=== PATIENT | female | born 1950 | race Caucasian/White ===

== ENCOUNTER 2019-08-06 09:38 | Outpatient (CLI) | payer MEDICARE, OTHER, SELFPAY ==
--- NOTE | ~2019-08-06 | MM_ITS ---
EXAMINATION: MM screening audie BI w jeremias HISTORY: Screening mammogram TECHNIQUE: Craniocaudal and mediolateral oblique 3-D tomosynthesis images were obtained and synthetic 2-D images were generated. CAD analysis was submitted and interpreted. COMPARISON: 06/14/2018, 03/05/2017, 02/14/2016 bilateral digital screening mammogram examinations BREAST PARENCHYMAL COMPOSITION: There are scattered areas of fibroglandular density. FINDINGS: Scattered benign calcifications. There is no evidence of suspicious mass, calcification, or architectural distortion to suggest malignancy in either breast. There has been no suspicious interv al change. IMPRESSION: 1. No mammographic evidence of malignancy. 2. Recommend routine screening mammography in one year. BI-RADS Category 2: Benign finding(s). Reviewed, dictated and finalized at location A. H FINISHER
--- NOTE | ~2019-08-06 | DEXA_ITS ---
Bone Density Report Name: Delmy Mchugh Age: 69 Sex: Female Ethnicity: White Date of : 1950 Indication: osteopenia; Referring Provider: Miranda Shane Study: Bone densitometry was performed. Exam Date: August 06, 2019 Accession number: [id number] There is hypertrophic degenerative change of the lumbar spine, which results in higher than expected spine bone mineral density measurements. These spine BMD and T score and Z score measurements are not reflective of the patient's true general bone mineral density. Bone Density: Region BMD T-score Z-score Classification AP Spine (L1, L4) 1.215 1.6 3.8 Normal Femoral Neck (Left) 0.630 -2.0 -0.1 Osteopenia Total Hip (Left) 0.751 -1.6 0.0 Osteopenia Total Hip Bilateral Avg 0.759 -1.5 0.1 Osteopenia Femoral Neck (Right) 0.637 -1.9 -0.1 Osteopenia Total Hip (Right) 0.766 -1.4 0.1 Osteopenia World Health Organization criteria for BMD impression classify patients as: Normal (T-score at or above -1.0), Osteopenia (T-score between -1.0 and -2.5), or Osteoporosis (T-score at or below -2.5). 10-year Fracture Risk(1): Major Osteoporotic Fracture 12% Hip Fracture 3.7% Reported Risk Factors: [place] (), Neck BMD=0.630, BMI=28.4, smoking (1) FRAX(R) Version 3.08. Fracture probability calculated for an untreated patient. Fracture probability may be lower if the patient has received treatment. Previous Exams: Region Exam Age BMD T-score BMD Change BMD Change Date g/cm2 vs Baseline vs Previous AP Spine(L1, L4) 08/06/2019 69 1.215 1.6 0.174(16.7%)# 0.172(16.4%)# 02/14/2016 65 1.044 0.1 0.002(0.2%)# 0.002(0.2%)# 09/28/2010 60 1.042 0.0 Total Hip(Left) 08/06/2019 69 0.751 -1.6 0.063(9.2%)# 0.043(6.0%)# 02/14/2016 65 0.708 -1.9 0.021(3.0%)# 0.021(3.0%)# 09/28/2010 60 0.688 -2.1 Total Hip(Right) 08/06/2019 69 0.766 -1.4 -0.062(-7.5%)# -0.033(-4.1%)# 02/14/2016 65 0.799 -1.2 -0.030(-3.6%)# -0.030(-3.6%)# 09/28/2010 60 0.828 -0.9 *Denotes significance at 95% confidence level, LSC for AP Spine = 0.022 g/cm2, LSC for Total Hip = 0.027 g/cm2 Clinical Information Provided by Patient: Smokes Patient maximum height was 64 Menopause Age: 43 No regular weight bearing exercise Drinks caffeinated beverages Onset of menses at age 10 Number of children 2 Impression: The patient has low bone mass, based on the Left Femoral Neck T-score. The
== END 2019-08-06 09:39 | disposition home or self-care (01) ==
LOC: ANHIMG 09:43
PROVIDERS: PCP Family Medicine; Visit Provider Physician Assistant
DX: Z12.31 Encounter for screening mammogram for malignant neoplasm of breast (principal); Z78.0 Asymptomatic menopausal state; M85.89 Other specified disorders of bone density and structure, multiple sites
CPT/HCPCS: 77063; 77067; 77080

== ENCOUNTER 2020-04-12 01:39 | Outpatient (CLI) | payer MEDICARE, SELFPAY ==
[2020-04-12 20:39] LABS: SARS-CoV-2 RNA PCR Negative
== END 2020-04-12 01:40 | disposition home or self-care (01) ==
LOC: ANHCOVIDDT 01:40
PROVIDERS: PCP Family Medicine; Visit Provider Internal Medicine Gastroenterology
DX: Z01.818 Encounter for other preprocedural examination (principal); Z20.828 Contact with and (suspected) exposure to other viral communicable diseases
CPT/HCPCS: 87635; C9803; U0003

== ENCOUNTER 2020-04-15 00:17 | Day surgery (SDC) | payer MEDICARE, SELFPAY ==
[2020-04-09 14:03] VITALS: BMI 27.5
[2020-04-15 06:30] VITALS: BP 173/85; PULSE 94; RESP 16; TEMP 36.3; O2SAT 97; BMI 27.3
--- NOTE | 2020-04-15 06:36 | P.PNAN_ITS ---
Anes - Initial Pre Proc Eval Procedure: Operation Date: 04/15/20 08:00 Proposed Procedures p Screening Colonoscopy - Ulises Coyle MD Date/Time: 04/15/20 06:36 Surgeon: Ulises Coyle MD Pre Op Diagnosis: hx of colon polyps Patient Data Age: 69 Gender: F Height: 1.65 m Weight: 75 kg Allergies Allergy/AdvReac Type Severity Reaction Status Date / Time No Known Allergies Allergy Unknown Verified 04/15/20 06:56 Home Medications Medication Instructions Recorded Confirmed Type atorvastatin 20 mg tablet See Rx Instructions .ROUTE 01/12/20 04/09/20 Rx .COMPLEX #90 tablet Patient hx anesthesia problems: none Family hx anesthesia problems: none PMFSH Past Medical History Medical History (Updated 04/15/20 @ 06:37 by Marino Vallecillo MD) Mixed hyperlipidemia Nicotine dependence, cigarettes, uncomplicated Overweight Spinal stenosis of lumbar region at multiple levels Family History Family History Father Diabetes mellitus Family history of elevated blood lipids Family history of alcoholism Patient's father is , Onset Age: 59 Mother Family history of glaucoma Carcinoma of colon Family history of lung cancer Social History Social History Smoking packs per day: 0.75 Smoking cigarettes per day: 15.0 Years smoked: 50 Smoking pack-years: 37.50 Smoking status: Current every day smoker Tobacco type: cigarettes Alcohol intake: never Substance use type: does not use Living arrangements: alone Spiritual care concerns: No Anes - Eval Final PreProcedure Day of Procedure 04/15/20 06:36 Patient weight: overweight Heart: regular rate and rhythm Lungs: clear to auscultation and normal air movement Airway: Mallampati scale class II Neurological: alert and oriented Last oral intake: >/= 8 hours ASA classification: II Emergent: no Anesthetic plan: proceed Anesthesia type and monitoring: general GIVS Informed Consent: The patient's anesthetic plan and its attendant risks and benefits were discussed with the patient/family/POA. Questions were solicited and answers provided to the satisfaction of the patient/family/POA.
[2020-04-15] MEDS: LACTATED RINGERS 1,000 ML 150 ML IV CONT (07:02)
--- NOTE | 2020-04-15 07:53 | P.CONGI_ITS ---
Assessment and Plan Assessment and plan (1) History of colon polyps: Code(s): Z86.010 - Personal history of colonic polyps Status: Acute Assessment and Plan: Patient has a history of colon polyps removed from the colon 5 years ago. Patient presents today for follow-up screening colonoscopy. Further recommendations will be given after endoscopy. GI Consult Note Consult date/time: 04/15/20 07:53 HPI: Delmy Mchugh is a 69 year old female seen in evaluation at the request of Dr. Krystyna Morocho. patient has a history of colon polyps in the past. Most recently fiber 6 years ago. Her current weight appetite bowel movements are normal. She denies abdominal pain. She has had no bleeding. Her family history is noncontributory. Review of Systems Review of Systems: All systems reviewed & are unremarkable except as noted in HPI and below PMFSH Past Medical History Medical History (Updated 04/15/20 @ 07:54 by Ulises Coyle MD) Mixed hyperlipidemia Nicotine dependence, cigarettes, uncomplicated Overweight Spinal stenosis of lumbar region at multiple levels Family History Family History Father Diabetes mellitus Family history of elevated blood lipids Family history of alcoholism Patient's father is , Onset Age: 59 Mother Family history of glaucoma Carcinoma of colon Family history of lung cancer Social History Social History Smoking packs per day: 0.75 Smoking cigarettes per day: 15.0 Years smoked: 50 Smoking pack-years: 37.50 Smoking status: Current every day smoker Tobacco type: cigarettes Alcohol intake: never Substance use type: does not use Living arrangements: alone Spiritual care concerns: No Meds Home Medications and Allergies Home Medications Medication Instructions Recorded Confirmed Type atorvastatin 20 mg tablet See Rx Instructions .ROUTE 01/12/20 04/09/20 Rx .COMPLEX #90 tablet Allergies Allergy/AdvReac Type Severity Reaction Status Date / Time No Known Allergies Allergy Unknown Verified 04/15/20 06:56 Vital Signs Vital Signs - 24 hr 04/15/20 06:30 Temperature 97.3 F L Pulse Rate 94 Respiratory Rate 16 Blood Pressure 173/85 H Pulse Oximetry 97 Exam Narrative: Exam Narrative: Physical exam reveals patient to be alert. Vital signs stable. HEENT exam unremarkable. She is anicteric. Lungs are clear to auscultation and percussion. Heart is without murmur or extra sounds. Abdominal exam bowel sounds are present soft nontender with no hepatosplenomegaly. Digital external rectal exam normal.
[2020-04-15 08:20] VITALS: BP 135/72; PULSE 81; RESP 20; O2SAT 95
[2020-04-15 08:30] VITALS: BP 131/79; PULSE 69; RESP 20; O2SAT 95
[2020-04-15 08:40] VITALS: BP 133/79; PULSE 83; RESP 21; O2SAT 100
== END 2020-04-15 09:02 | disposition home or self-care (01) ==
PROVIDERS: PCP Family Medicine; Visit Provider Internal Medicine Gastroenterology
PROC: 0DJD8ZZ Inspection of Lower Intestinal Tract, Via Natural or Artificial Opening Endoscopic (ICD-10-PCS; CPT 45378; principal; 2020-04-15 08:00)
DX: Z12.11 Encounter for screening for malignant neoplasm of colon (principal); K63.5 Polyp of colon; K64.8 Other hemorrhoids; E78.2 Mixed hyperlipidemia; M47.816 Spondylosis without myelopathy or radiculopathy, lumbar region; F17.210 Nicotine dependence, cigarettes, uncomplicated
CPT/HCPCS: 45385; 88305; C9803; J2704; J7120; U0003

== ENCOUNTER → 2020-07-08 10:07 | Outpatient (CLI) | payer MEDICARE, SELFPAY ==
--- NOTE | ~2020-07-08 | CT_ITS ---
EXAMINATION:CT lung screening DATE: 07/08/2020 10:31 INDICATION: Personal history of nicotine dependence. Current smoker with 30 pack year history. TECHNIQUE: Computed tomography (CT) of the chest was performed without intravenous contrast. Automate d exposure control and iterative reconstruction technique were employed. The dose-length product (DLP ) was 109.83 mGy-cm. COMPARISON: Chest CT 04/28/2019 FINDINGS: There is mild scarring at the lung apices. There is mild atelectasis in right middle lobe a nd lingula. A calcified left lung nodule is consistent with old granulomatous disease. No pleural eff usion. The heart size is normal. There are coronary artery calcifications. No pericardial effusion. T here is severe thoracic spondylosis. IMPRESSION: 1. Lung-RADS category 2: Benign appearance or behavior. Continue annual screening with noncontrast lo w-dose chest CT in 12 months. Reviewed, dictated and finalized at location A. NO MANAGER IMPRESSION: 1. Lung-RADS category 2: Benign appearance or behavior. Continue annual screeni ng with noncontrast low-dose chest CT in 12 months.
== END ==
PROVIDERS: PCP Family Medicine; Visit Provider Family Medicine
DX: Z12.2 Encounter for screening for malignant neoplasm of respiratory organs (principal); Z87.891 Personal history of nicotine dependence
CPT/HCPCS: 71271

== ENCOUNTER 2020-09-28 09:25 | Outpatient (CLI) | payer MEDICARE, SELFPAY ==
--- NOTE | ~2020-09-28 | MM_ITS ---
EXAMINATION: MM screening audie BI w jeremias HISTORY: Screening mammogram TECHNIQUE: Craniocaudal and mediolateral oblique 3-D tomosynthesis images were obtained and synthetic 2-D images were generated. CAD analysis was submitted and interpreted. COMPARISON: 08/2019, 06/14/2018, 03/05/2017 bilateral digital screening mammogram examinations BREAST PARENCHYMAL COMPOSITION: There are scattered areas of fibroglandular density. FINDINGS: There is no evidence of suspicious mass, calcification, or architectural distortion to sugg est malignancy in either breast. There has been no suspicious interval change. IMPRESSION: 1. No mammographic evidence of malignancy. 2. Recommend routine screening mammography in one year. BI-RADS Category 1: Negative Reviewed, dictated and finalized at location A.
== END 2020-09-28 09:26 | disposition home or self-care (01) ==
LOC: ANHIMG 09:30
PROVIDERS: PCP Family Medicine; Visit Provider Family Medicine
DX: Z12.31 Encounter for screening mammogram for malignant neoplasm of breast (principal)
CPT/HCPCS: 77063; 77067

== ENCOUNTER 2020-10-21 16:46 | Emergency (ER) | payer MEDICARE, SELFPAY ==
--- NOTE | ~2020-10-21 | XR_ITS ---
EXAMINATION: XR chest 2V DATE: 10/21/2020 17:36 INDICATION: Fever TECHNIQUE: PA and lateral views of the chest are obtained. COMPARISON: 04/07/2019 FINDINGS: The lungs are free of acute opacities. There is scarring of the lung apices. There is no pl eural effusion or pneumothorax. The cardiomediastinal silhouette is normal. There is moderate thoraci c spondylosis. IMPRESSION: 1. No acute cardiopulmonary abnormality. Reviewed, dictated and finalized at location A.
--- NOTE | 2020-10-21 16:53 | ED.GENADULT ---
HPI - General Adult General Chief complaint: Nausea/Vomiting/Diarrhea Stated complaint: vomiting,diarrhea,fever Time Seen by Provider: 10/21/20 17:17 Source: patient and RN notes reviewed Mode of arrival: ambulatory Limitations: no limitations History of Present Illness HPI narrative: 70-year-old female presents with concern for fever. Reports 5 days ago her symptoms began with fever, chills, vomiting, diarrhea. She reports her last diarrhea stool and vomiting episode wore on Sunday. She reports on Sunday she began to feel slightly better. Reports today she began having chills again and had a fever of 102. She denies cough, shortness of breath, rhinorrhea, nasal congestion, abdominal pain, urine frequency or urgency. Reports she was treated for cellulitis and abscess at the end of September with antibiotics, reports the infected area has healed. Denies any new rashes, boils, red skin. MD complaint: Fever Related Data Allergies Allergy/AdvReac Type Severity Reaction Status Date / Time No Known Allergies Allergy Unknown Verified 10/21/20 17:43 Review of Systems Review of Systems: Narrative: CONSTITUTIONAL: Reports malaise, chills, fatigue, fever. EYES: Denies visual changes, redness, or discharge. ENT: Denies rhinorrhea, congestion, sinus pain, otalgia or sore throat. CARDIOVASCULAR: Denies chest pain, palpitations, or edema. RESPIRATORY: Denies cough or dyspnea. GASTROINTESTINAL: Denies abdominal pain. Reports history of nausea, vomiting, diarrhea 2 days ago GENITOURINARY: Denies dysuria or hematuria. SKIN: Denies rash or itching. MUSCULOSKELETAL: Denies myalgia.. Reports she had 2-day history of left lower flank pain when symptoms first started which has since resolved NEUROLOGIC: Denies headache. All systems reviewed & are unremarkable except as noted in HPI and below PMFSH Past Medical History Medical History Hepatitis C antibody test negative (03/06/17) Mixed hyperlipidemia Nicotine dependence, cigarettes, uncomplicated Overweight Spinal stenosis of lumbar region at multiple levels Family History Family History Father Diabetes mellitus Family history of elevated blood lipids Family history of alcoholism Patient's father is , Onset Age: 59 Mother Family history of glaucoma Carcinoma of colon Family history of lung cancer Social History Social History (Updated 09/29/20 @ 11:20 by Kenia Rodríguez [facility]) Years smoked: 50 Tobacco type: cigarettes Alcohol intake: never Substance use type: does not use Spiritual care concerns: No Comments At time of signature, agree with nursing past medical, surgical, social and family history. There is no relevant family history pertinent to the presenting complaint Exam Narrative: Exam Narrative: GENERAL: Well-appearing, well-nourished, and in no acute distress. HEAD: Normocephalic, atraumatic. EYES: PERRLA, conjunctivae clear ENT: Nares clear. Mucous membranes moist. TM pearly lugo with sharp light reflex bilaterally; no tragal tenderness. Oropharynx without erythema or lesions. Tonsils not enlarged and without exudate. NECK: Supple. No lymphadenopathy. No jugular venous distension, thyromegaly, or carotid bruits. Carotids were easily palpable bilaterally. CHEST: No respiratory distress. Rhonchi noted in the right lower lobe, right lower lobe diminished. Otherwise lung sounds clear to auscultation no bony deformities, no asymmetry. Speaks in full sentences. HEART: Regular rate and rhythm. No murmur heard. Normal peripheral pulses. ABDOMEN: Soft, nontender, nondistended, normal active bowel sounds, no palpable masses. EXTREMITIES: Normal range of motion. No edema. Normal strength and sensation. SKIN: Warm, dry, no rash. NEURO: Alert and oriented x3. PSYCH: Normal mood and affect Course Course Emergency Course: Patient
[2020-10-21 17:01] VITALS: BP 136/75; PULSE 99; RESP 20; TEMP 36.7; O2SAT 97
[2020-10-21 17:05] VITALS: BP 136/75; PULSE 99; RESP 20; TEMP 36.7; O2SAT 97
== END 2020-10-21 18:13 | disposition home or self-care (01) ==
PROVIDERS: Emergency Provider Nurse Practitioner; PCP Family Medicine
DX: R11.2 Nausea with vomiting, unspecified (principal); R10.9 Unspecified abdominal pain; R50.9 Fever, unspecified; Z20.822 Contact with and (suspected) exposure to COVID-19; E78.2 Mixed hyperlipidemia; F17.218 Nicotine dependence, cigarettes, with other nicotine-induced disorders; M48.061 Spinal stenosis, lumbar region without neurogenic claudication
CPT/HCPCS: 71046; 81003; 87077; 87086; 87088; 87186; 87426; 87804; 99213; C9803; G0463

== ENCOUNTER 2020-10-24 15:01 | Observation (INO) | payer MEDICARE, SELFPAY ==
[2020-10-24] VITALS (13 sets, daily range): BP systolic 126–181; BP diastolic 50–96; PULSE 81–103; RESP 14–20; TEMP 36.2–36.6; O2SAT 92–100; BMI 27.3
--- NOTE | ~2020-10-24 | CT_ITS ---
EXAMINATION: CT abdomen pelvis w con INDICATION: Pelvic pain and fever TECHNIQUE: Computed tomographic images of the abdomen and pelvis were obtained after the administrati on of 100 cc of Omnipaque 350 intravenous contrast. The dose-length product (DLP) was 509.50 mGy-cm. Automated exposure control and iterative reconstruction technique were employed. COMPARISON: 07/19/2013 FINDINGS: Minimal dependent atelectasis is present in the lung bases. The heart size is normal. Cysts of the liver measure up to 4 mm in the right hepatic lobe. There is a 5 mm cyst of the spleen. Calci fication in the head of the pancreas is consistent with chronic pancreatitis. The gallbladder and adr enal glands are unremarkable. There is a 10 mm stone at the left ureteropelvic junction which causes moderate hydronephrosis. There is urothelial enhancement of the proximal ureter. There is decreased p erfusion of the left kidney relative to the right. There is a 6 mm stone in the left kidney lower cathi e. There is an 11 mm cyst in the right kidney. There is calcified atherosclerosis of the aorta and ma ny of the other arteries. No pathologically enlarged abdominal or pelvic lymph nodes are identified. There is no free intraperitoneal gas or evidence of bowel obstruction. A tiny focus of gas in the uri nary bladder may be due to catheterization, clinically correlate. There is severe lumbar spondylosis. IMPRESSION: 1. 10 mm stone at the left ureteropelvic junction causing moderate hydronephrosis and left pyelonephr itis. Reviewed, dictated and finalized at location A. IMPRESSION: 1. 10 mm stone at the left ureteropelvic junction causing moderate hydronephros is and left pyelonephritis.
--- NOTE | ~2020-10-24 | XR_ITS ---
EXAMINATION: XR abdomen/kub 1V INDICATION: Left nephrolithiasis and left ureteral stone TECHNIQUE: Supine views of the abdomen were obtained on 2 radiographs. COMPARISON: CT from yesterday FINDINGS: A left internal ureteral stent has been inserted. There is a 5 mm stone of the left kidney lower pole. The 10 mm stone described at the left ureteropelvic junction on the comparison CT is not definitely seen. The bowel gas pattern is normal. Severe lumbar spondylosis is noted. IMPRESSION: 1. Left internal ureteral stent in expected position. 2. Left nephrolithiasis. Reviewed, dictated and finalized at location A.
--- NOTE | ~2020-10-24 | XR_ITS ---
EXAMINATION: XR retrograde pyelo w/stent LT INDICATION: Left hilar nephritis and proximal ureteral stone TECHNIQUE: 61 intraoperative fluoroscopic images are submitted for review. Total fluoroscopic time wa s 42.4 seconds. COMPARISON: CT from today FINDINGS: Fluoroscopic images demonstrate a stone at the ureteropelvic junction and moderate left hyd ronephrosis. A left internal ureteral stent is placed in expected position. IMPRESSION: 1. Please refer to procedure note for full details. Reviewed, dictated and finalized at location A.
--- NOTE | ~2020-10-24 | XR_ITS ---
EXAMINATION: XR abdomen/kub 1V DATE: 10/26/2020 08:48 INDICATION: Kidney stone. TECHNIQUE: A supine view of the abdomen on 2 radiographs was obtained. COMPARISON: Abdomen radiographs 10/25/2020, CT abdomen and pelvis 10/24/2020 FINDINGS: There are no dilated loops of bowel. There are phleboliths in the pelvis. There is a left i nternal ureteral stent in expected position. There is a 5 mm stone in left kidney lower pole. IMPRESSION: 1. 5 mm stone in left kidney lower pole. 2. Left internal ureteral stent in expected position. Reviewed, dictated and finalized at location B.
[2020-10-24 15:37] LABS: Basophils Absolute Auto 0.1 K/mm3 (0.0-0.1); Basophils Percent Auto 0.6 % (0.2-1.2); Eosinophils Absolute Auto 0.2 K/mm3 (0-0.3); Hematocrit 38.2 % (37.0-47.0); Hemoglobin 12.9 g/dL (12.0-15.0); Immature Granulocyte Absolute 0.09 K/mm3 (0.00-0.031); Immature Granulocyte Percent A 0.8 % (0-0.5); Lymphocytes Absolute Auto 1.76 K/mm3 (0.9-3.2); Lymphocytes Percent Auto 16.6 % (18.3-44.2); Mean Corpuscular HGB Conc 33.8 g/dl (32-36); Mean Corpuscular Hemoglobin 30.5 pg (26-34); Mean Corpuscular Volume 90.3 fl (80-100); Mean Platelet Volume 9.5 fl (7.4-10.4); Monocytes Absolute Auto 1.6 K/mm3 (0.1-0.6); Monocytes Percent Auto 15.4 % (2.6-8.5); Neutrophils Absolute Auto 6.9 K/mm3 (1.3-6.7); Neutrophils Percent Auto 64.6 % (45.5-73.1); Platelet Count Result 302 k/mm3 (150-375); Red Blood Count 4.23 M/mm3 (4.2-5.4); Red Cell Distribution Width 14.8 % (11.5-14.5); White Blood Count 10.6 K/mm3 (4.5-10.0)
[2020-10-24 15:47] LABS: Alanine Aminotransferase 43 U/L (4-35); Albumin Level 3.9 g/dL (3.5-5.1); Alkaline Phosphatase 125 U/L (38-126); Anion Gap 9 mmol/L (8-16); Aspartate Amino Transferase 57 U/L (14-36); Bilirubin,Total 0.5 mg/dL (0.2-1.3); Blood Urea Nitrogen 23 mg/dL (7-17); Calcium 9.3 mg/dL (8.4-10.2); Carbon Dioxide 20 mmol/L (22-30); Chloride 102 mmol/L (98-107); Estimated CRCL calculation 40 ml/min; Estimated Glomerular Filt Rate 49; Glucose 108 mg/dL (65-105); Lipase 46 U/L (23-300); Potassium 3.5 mmol/L (3.4-5.0); Sodium 131 mmol/L (137-145)
[2020-10-24 16:11] LABS: Add Urine Microscopic? YES; Appearance Urine Cloudy (Clear); Bacteria Urine Trace /hpf; Bilirubin Urine Negative (Negative); Blood Urine 3+ (Negative); Color Urine Yellow (Yellow); Glucose Urine UA Negative (Negative); Ketones Urine Negative (Negative); Leukocyte Esterase Ur 3+ LEU/UL (Negative); Nitrate Urine Negative (Negative); Protein Urine 1+ mg/dL (Negative); RBC Urine 21-50 /hpf (0-2); Squamous Epithelial Cell Urine Many /hpf (Few); Urobilinogen Urine Negative mg/dL (<2.0); WBC Urine 21-30 /hpf
--- NOTE | 2020-10-24 16:32 | ED.GENADULT ---
HPI - General Adult General Chief complaint: Nausea/Vomiting/Diarrhea Stated complaint: nausea/vomiting/fever/chills Time Seen by Provider: 10/24/20 16:01 Source: patient, family and RN notes reviewed Mode of arrival: ambulatory Limitations: no limitations History of Present Illness HPI narrative: Patient is a 70-year-old female who presents with 1 week duration of abdominal pain started with nausea and vomiting and diarrhea patient then continued to have chills fevers nausea was seen at an urgent care on Sunday or started on ciprofloxacin continue to have dry heaves now having right lower adnexal pain. Patient notes for the last 4 days she has not had a bowel movement she was also tested for flu and Covid which were negative. Patient presents per request of primary care for further evaluation. Patient denies similar occurrence in the past Related Data Allergies Allergy/AdvReac Type Severity Reaction Status Date / Time No Known Allergies Allergy Unknown Verified 10/21/20 17:43 Review of Systems Review of Systems: All systems reviewed & are unremarkable except as noted in HPI and below PMFSH Past Medical History Medical History Hepatitis C antibody test negative (03/06/17) Mixed hyperlipidemia Nicotine dependence, cigarettes, uncomplicated Overweight Spinal stenosis of lumbar region at multiple levels Family History Family History Father Diabetes mellitus Family history of elevated blood lipids Family history of alcoholism Patient's father is , Onset Age: 59 Mother Family history of glaucoma Carcinoma of colon Family history of lung cancer Social History Social History Years smoked: 50 Tobacco type: cigarettes Alcohol intake: never Substance use type: does not use Gender identity (if verbalized by the patient): Female Spiritual care concerns: No Exam Narrative: Exam Narrative: GENERAL: Well-appearing, well-nourished, and in no acute distress. HEAD: Normocephalic, atraumatic. EYES: PERRLA and EOMI. ENT: Nares clear, no rhinorrhea or epistaxis. Mucous membranes moist. CHEST: Clear to auscultation. No respiratory distress. No wheezes rales or rhonchi HEART: Regular rate and rhythm. No murmur heard. Normal peripheral pulses. ABDOMEN: Soft, right lower abdominal tenderness to palpation nondistended EXTREMITIES: Normal range of motion. No edema. SKIN: Warm, dry, no rash. NEURO: No focal deficits. Alert and oriented x3. PSYCH: Normal mood and affect. Course Course Emergency Course: Patient found to have kidney stone with urinary tract infection discussion was made with urology with plan to take the patient to the operating room tonight for stent placement. Patient at this time is aware of these findings was given fluids and IV antibiotics nontoxic-appearing Consultations Consultation #1: Discussed case with urology Dr. Velasquez who will take the patient to the operating room Date: 10/24/20 Time: 17:48 Vital Signs Vital signs: Vital Signs Temperature 97.9 F 10/24/20 15:21 Pulse Rate 103 H 10/24/20 15:21 Respiratory Rate 20 10/24/20 15:21 Blood Pressure 145/79 H 10/24/20 15:21 Pulse Oximetry 97 10/24/20 15:21 Temperature 97.9 F 10/24/20 15:21 Pulse Rate 103 H 10/24/20 15:21 Respiratory Rate 20 10/24/20 15:21 Blood Pressure 145/79 H 10/24/20 15:21 Pulse Oximetry 97 10/24/20 15:21 Medical Decision Making [facility] Narrative Medical decision making narrative: Patient with kidney stone with urinary tract infection will be taken to the operating room for further evaluation patient is afebrile nontoxic-appearing at this time has been hydrated and given IV antibiotics patient agreeing with this plan Vital Signs Vital Signs: Vital Signs Temperature 97.9 F 10/24/20 15:21 Puls
[2020-10-24] MEDS: SODIUM CHLORIDE 0.9% IV 1,000 ML 999 ML IV CONT (16:47)
[2020-10-24] MEDS: ONDANSETRON INJ 4 MG/2 ML VIAL IV PUSH ×2 (16:47→20:18)
[2020-10-24] MEDS: FAMOTIDINE 20 MG/2 ML VIAL IV PUSH (16:47)
[2020-10-24 17:00] LABS: Lactic Acid Reflex 1.2 mmol/L (0.7-2.1)
--- NOTE | 2020-10-24 18:16 | WPDANESEPP ---
Anes - Eval Pre Procedure Procedure: left cysto with stent placement Date/Time: 10/24/20 18:16 Surgeon: Ron Preop Diagnosis: Left stone Pre Op Diagnosis: nausea/vomiting/fever/chills Patient Data Age: 70 Gender: F Height: 5 ft 4 in Weight: 74 kg Last Vital Signs Temp 97.9 F 10/24/20 15:21 Pulse 103 H 10/24/20 15:21 Resp 20 10/24/20 15:21 BP 145/79 H 10/24/20 15:21 Pulse Ox 97 10/24/20 15:21 Allergies Allergy/AdvReac Type Severity Reaction Status Date / Time No Known Allergies Allergy Unknown Verified 10/21/20 17:43 Home Medications Medication Instructions Recorded Confirmed Type atorvastatin 20 mg tablet See Rx Instructions .ROUTE 07/06/20 09/29/20 Rx .COMPLEX #90 tablet ciprofloxacin HCl 500 mg PO Q12H 7 Days #14 tablet 10/21/20 Rx Laboratory Tests 10/24/20 10/24/20 10/24/20 15:31 15:31 16:00 WBC 10.6 K/mm3 H K/mm3 (4.5-10.0) RBC 4.23 M/mm3 M/mm3 (4.2-5.4) Hgb 12.9 g/dL g/dL (12.0-15.0) Hct 38.2 % % (37.0-47.0) MCV 90.3 fl fl (80-100) MCH 30.5 pg pg (26-34) MCHC 33.8 g/dl g/dl (32-36) RDW 14.8 % H % (11.5-14.5) Plt Count 302 k/mm3 k/mm3 (150-375) MPV 9.5 fl fl (7.4-10.4) Immature Gran % (Auto) 0.8 % H % (0-0.5) Neut % (Auto) 64.6 % % (45.5-73.1) Lymph % (Auto) 16.6 % L % (18.3-44.2) [place] % (Auto) 15.4 % H % (2.6-8.5) Eos % (Auto) 2.0 % % (0-4.4) Baso % (Auto) 0.6 % % (0.2-1.2) Lymph # (Auto) 1.76 K/mm3 K/mm3 (0.9-3.2) [place] # (Auto) 1.6 K/mm3 H K/mm3 (0.1-0.6) Eos # (Auto) 0.2 K/mm3 K/mm3 (0-0.3) Baso # (Auto) 0.1 K/mm3 K/mm3 (0.0-0.1) Abs Immat Gran (auto) 0.09 K/mm3 H K/mm3 (0.00-0.031) Absolute Neuts (auto) 6.9 K/mm3 H K/mm3 (1.3-6.7) Absolute Nucleated RBC 0.0 K/mm3 K/mm3 (0.0-0.012) Nucleated RBC % 0.0 % % (0.0-0.2) Sodium 131 mmol/L L mmol/L (137-145) Potassium 3.5 mmol/L mmol/L (3.4-5.0) Chloride 102 mmol/L mmol/L (98-107) Carbon Dioxide 20 mmol/L L mmol/L (22-30) Anion Gap 9 mmol/L mmol/L (8-16) BUN 23 mg/dL H mg/dL (7-17) Creatinine 1.10 mg/dL H mg/dL (0.7-1.0) Estim Creat Clear Calc 40 ml/min ml/min Estimated GFR 49 L (59 - ) Glucose 108 mg/dL H mg/dL (65-105) Lactic Acid Calcium 9.3 mg/dL mg/dL (8.4-10.2) Total Bilirubin 0.5 mg/dL mg/dL (0.2-1.3) AST 57 U/L H U/L (14-36) ALT 43 U/L H U/L (4-35) Alkaline Phosphatase 125 U/L U/L (38-126) Total Protein 8.0 g/dL g/dL (6.3-8.2) Albumin 3.9 g/dL g/dL (3.5-5.1) Lipase 46 U/L U/L (23-300) Urine Color Yellow (Yellow) Urine Appearance Cloudy H (Clear) Urine pH 6.0 (5.0-9.0) Ur Specific Bronson 1.010 (1.001-1.035) Urine Protein 1+ mg/dL H mg/dL (Negative) Urine Glucose (UA) Negative mg/dL mg/dL (Negative) Urine Ketones Negative mg/dL mg/dL (Negative) Ur Blood (Man) 3+ H (Negative) Urine Nitrate Negative (Negative) Urine Bilirubin Negative (Negative) Urine Urobilinogen Negative mg/dL mg/dL (<2.0) Leukocyte Esterase Rfl 3+ YAMILE/UL H YAMILE/UL (Negative) Urine RBC 21-50 /hpf H /hpf (0-2) Urine WBC 21-30 /hpf H /hpf Ur Squamous Epith Cells Many /hpf H /hpf (Few) Urine Bacteria Trace /hpf /hpf 10/24/20 16:44 WBC RBC Hgb Hct MCV MCH MCHC RDW Plt Count MPV Immature Gran % (Auto) Neut % (Auto) Lymph % (Auto) [place] % (Auto) Eos % (Auto) B
--- NOTE | 2020-10-24 18:44 | WPDURCON ---
Assessment and Plan Assessment and plan (1) Urinary tract infection: Code(s): N39.0 - Urinary tract infection, site not specified Status: Acute Assessment and Plan: She will be admitted to the medical service after procedure for management of underlying infection, await cultures, continue broad specturm IV abx (2) Kidney stone: Code(s): N20.0 - Calculus of kidney Status: Acute Assessment and Plan: plan on cysto, left RPG, left stent placement for suspected infected obstructing stone. daughter ( RN ) and sister present risks, benefits, alternatives, nature of procedure and potential complications reviewed. Pt understands we are not treating her stone today and she will need stone management in the future after infection has been treated. Pt understands stent is temporary and needs removal otherwise she risks permanent kidney injury and or loss. We discussed risks including but not limited to bleeding, infection trauma to surrounding structures, ureter, bladder, kidney, the side effects of stent ( ie irritative voiding symptoms pain similar to stone colic pain), failure to placed the stent and need for nephrostomy tube placement by IR, ureteral injury, in addition to anesthetic and positioning complications of heart attack, stroke, blood clots, PE, , disability and other unforeseen complications were reviewed. Pt and family verbalized understanding and are agreeable to proceed, all ? answered in laymans terms Urology Consult Note HPI Date Seen: 10/24/20 Primary Care Provider: Krystyna Morocho DO Consult Narrative Narrative: Delmy Mchugh is a 70 year old female with pmhx of hypercholesterolemia, came to ER today with 4 day hx of flank pain, abdominal pain, nausea and dry heaves. Pain is located in mid abdomen and radiates to the left flank. She has had fevers and chills at home of up to 102F. No prior hx of stone disease, no family hx of stone disease. She denies gross hematuria, + dysuria. She was seen at outside [facility], was diagnosed with UTI and placed on cipro. CT in ER shows a 10mm left UPJ stone. Review of Systems Review of Systems: All systems reviewed & are unremarkable except as noted in HPI and below Constitutional: Constitutional: Reports body ache(s), Reports chills and Reports fever(s) Eyes: Eyes: Denies change in vision and Denies dry eyes ENT: Reports Normal hearing present and Denies hearing loss Cardiovascular: Cardiovascular: Denies chest pain and Denies dyspnea Respiratory: Respiratory: Denies cough and Denies dyspnea on exertion Gastrointestinal: Gastrointestinal: Reports as per HPI Genitourinary: Genitourinary: Reports as per HPI Musculoskeletal: Musculoskeletal: Reports myalgias Integumentary/Breasts: Skin/Breast: Reports as per HPI Neurologic: Reports system reviewed and no additional complaints, except as documented Psychiatric: Psychiatric: Reports no additional psychiatric complaints Endocrine: Endocrine: Reports no additional endocrine complaints Hematologic/Lymphatic: Hematologic/Lymphatic: Reports no additional hematologic/lymphatic complaints Allergic/Immunologic: Allergic/Immunologic: Reports no additional allergic/immunologic complaints [facility] Past Medical History Medical History Hepatitis C antibody test negative (03/06/17) Mixed hyperlipidemia Nicotine dependence, cigarettes, uncomplicated Overweight Spinal stenosis of lumbar region at multiple levels Family History Family History Father Diabetes mellitus Family history of elevated blood lipids Family history of alcoholism Patient's father is , Onset Age: 59 Mother Family history of glaucoma Carcinoma of colon Family history of lung cancer Social History Social History Years smoked: 50
--- NOTE | 2020-10-24 18:58 | WPDHPUPDATE1 ---
History and Physical Update Update Date/Time: 10/24/20 18:58 History and Physical has been reviewed, including an updated exam of the patient. There are NO changes in the patient's condition. Risks, benefits, and alternatives have been discussed and questions answered. Patient agrees to proceed with procedure.
--- NOTE | 2020-10-24 19:06 | WPDANESEFPP ---
Anes - Eval Final PreProcedure Day of Procedure 10/24/20 19:06 Patient weight: overweight Heart: regular rate and rhythm Lungs: clear to auscultation and normal air movement Airway: Mallampati scale class II Neurological: alert and oriented Last oral intake: >/= 8 hours ASA classification: II Emergent: yes Anesthetic plan: proceed Anesthesia type and monitoring: general LMA and ETT Informed Consent: The patient's anesthetic plan and its attendant risks and benefits were discussed with the patient/family/POA. Questions were solicited and answers provided to the satisfaction of the patient/family/POA.
--- NOTE | 2020-10-24 19:11 | PC.NURSE ---
To OR via stretcher.
[2020-10-24] MEDS: LIDOCAINE HCL 2% GEL UROJET 10 ML PKG MUCOUS MEM (19:59)
--- NOTE | 2020-10-24 20:05 | P.OP_ITS ---
Procedure Note - Detailed Date of procedure: 10/24/20 Pre-op diagnosis: stent placement r/o stone left ureter stone Post-op diagnosis: same Procedure performed: cystoscopy, left retrograde pyelogram, left ureter stent placement Description of procedure: Patient was brought back to the OR, received a general anethsia via LMA. She was prepped and draped in standard fashion with Betadine to the genitalia, in the dorsal lithotomy position. Care was taken to not hyperflex or hyperextend any extremity, all bony prominences thoroughly padded. SCD boots on and functional for DVT ppx. Pt received IV antibiotics in ER. After appropriate - and radiological films were displayed a 20 Fr Cystoscope was inserted into the urinary bladder. the bladder mucosa was normal, free of tumor, lesion, mass or stone. She had single orthotopic ureteral orifices. [employer] fluoroscopy showed left ureter stone in left proximal ureter. I placed a Bentson wire into the ureter. An open ended catheter was placed over the wire up to the level of the stone, Retrograde revealed mild to moderate hydronephrosis. The Bentson wire was placed into the upper pole. A 6 Fr variable length stent was placed, good curl was seen fluoroscopically in the kidney and both fluoroscopically and endoscopically in the urinary bladder, The urine was cloudy from the stent. I elected to leave a 16 Fr stevens for maximal urinary drainage. All instruments and wires removed. Blood loss was 0. Patient was awoken and transferred to PACU in stable condition, no immediate complications. I discussed procedure and postoperative plans with daughter over the phone. Implants: left 6 fr variable lenght stent Anesthesia: GLMA Surgeon: Gigi Velasquez MD Drains: Yes Packing: No Pathology: none sent Complications: No immediate complications Condition: stable Disposition: PACU
[2020-10-24] MEDS: LACTATED RINGERS 1,000 ML 30 ML IV CONT ×2 (20:08→20:45)
--- NOTE | 2020-10-24 22:41 | ADMGEN ---
This patient, Delmy Mchugh, was admitted to Medical Room 250-01. Patient/family oriented to hospital policies and general routines including ID bracelet, bed and alarms, visiting hours, pain management, procedures, bathroom and other care routines, personal items, smoking policy, room service/diet, and visiting hours. Information on how to activate the Rapid Response Team has been discussed. Patient/Family are encouraged to report perceived risks to care and to ask questions if they do not understand what they are told or what they should do.
[2020-10-25] MEDS: KCL 20 MEQ/D5/0.45% SOD CHL 1,000 ML 80 ML IV CONT ×2 (00:02→12:22)
[2020-10-25] MEDS: HYDROcodone/acetaminophen (*CRX) 5-325 MG TABLET 1 TAB PO (02:41)
[2020-10-25 05:00] VITALS: BP 134/66; PULSE 80; RESP 16; TEMP 36.2; O2SAT 96
[2020-10-25] MEDS: ATORVASTATIN 20 MG TABLET PO (08:25)
[2020-10-25] MEDS: LORATADINE 10 MG TABLET PO (08:25)
[2020-10-25 10:00] VITALS: BP 173/81; PULSE 74; RESP 16; TEMP 36.7; O2SAT 96
--- NOTE | 2020-10-25 10:49 | WPDANESPN ---
Anes - Prog Note Post-Op Date/Time: 10/25/20 10:49 Cardiovascular status: normal Respiratory status: normal Airway patency: baseline Mental status: baseline Post-Op hydration status: normal Vital Signs: Last Vital Signs Temp 36.7 C 10/25/20 10:00 Pulse 74 10/25/20 10:00 Resp 16 10/25/20 10:00 BP 173/81 H 10/25/20 10:00 Pulse Ox 96 10/25/20 10:00 Pain Score (VAS): 06/13 I/O: Intake & Output 10/24/20 10/25/20 10/25/20 23:59 07:59 15:59 Intake Total 2400 600 240 Output Total 1120 1550 Balance 1280 -950 240 Laboratory Tests 10/24/20 15:31 10/24/20 15:31 10/24/20 10/24/20 10/24/20 15:31 15:31 16:00 WBC 10.6 H RBC 4.23 Hgb 12.9 Hct 38.2 MCV 90.3 MCH 30.5 MCHC 33.8 RDW 14.8 H Plt Count 302 MPV 9.5 Immature Gran % (Auto) 0.8 H Neut % (Auto) 64.6 Lymph % (Auto) 16.6 L Casey % (Auto) 15.4 H Eos % (Auto) 2.0 Baso % (Auto) 0.6 Lymph # (Auto) 1.76 Casey # (Auto) 1.6 H Eos # (Auto) 0.2 Baso # (Auto) 0.1 Abs Immat Gran (auto) 0.09 H Absolute Neuts (auto) 6.9 H Absolute Nucleated RBC 0.0 Nucleated RBC % 0.0 Sodium 131 L Potassium 3.5 Chloride 102 Carbon Dioxide 20 L Anion Gap 9 BUN 23 H Creatinine 1.10 H Estim Creat Clear Calc 40 Estimated GFR 49 L Glucose 108 H Lactic Acid Calcium 9.3 Total Bilirubin 0.5 AST 57 H ALT 43 H Alkaline Phosphatase 125 Total Protein 8.0 Albumin 3.9 Lipase 46 Urine Color Yellow Urine Appearance Cloudy H Urine pH 6.0 Ur Specific [place] 1.010 Urine Protein 1+ H Urine Glucose (UA) Negative Urine Ketones Negative Ur Blood (Man) 3+ H Urine Nitrate Negative Urine Bilirubin Negative Urine Urobilinogen Negative Leukocyte Esterase Rfl 3+ H Urine RBC 21-50 H Urine WBC 21-30 H Ur Squamous Epith Cells Many H Urine Bacteria Trace 10/24/20 16:44 WBC RBC Hgb Hct MCV MCH MCHC RDW Plt Count MPV Immature Gran % (Auto) Neut % (Auto) Lymph % (Auto) Casey % (Auto) Eos % (Auto) Baso % (Auto) Lymph # (Auto) Casey # (Auto) Eos # (Auto) Baso # (Auto) Abs Immat Gran (auto) Absolute Neuts (auto) Absolute Nucleated RBC Nucleated RBC % Sodium Potassium Chloride Carbon Dioxide Anion Gap BUN Creatinine Estim Creat Clear Calc Estimated GFR Glucose Lactic Acid 1.2 Calcium Total Bilirubin AST ALT Alkaline Phosphatase Total Protein Albumin Lipase Urine Color Urine Appearance Urine pH Ur Specific [place] Urine Protein Urine Glucose (UA) Urine Ketones Ur Blood (Man) Urine Nitrate Urine Bilirubin Urine Urobilinogen Leukocyte Esterase Rfl Urine RBC Urine WBC Ur Squamous Epith Cells Urine Bacteria Post-procedural complaints: none Patient Feedback: Patient satisfied with anesthetic care.
--- NOTE | 2020-10-25 13:06 | WPDUROPN2 ---
Progress Note: A&P Assessment and Plan (1) Kidney stone: Code(s): N20.0 - Calculus of kidney Status: Acute Assessment and Plan: UPJ stone is not visible on KUB, therefore we will evaluate for a ureteroscopy in the next few weeks once infection has resolved. Will discuss with Dr. Leon. NO further surgical needs at this time. Ok to remove stevens and perform a voiding trial. (2) Urinary tract infection: Code(s): N39.0 - Urinary tract infection, site not specified Status: Acute Assessment and Plan: Continue IV antibiotics, tailor to culture results. Will plan to repeat urine culture in the office prior to ureteroscopy. Subjective Subjective Date/Time Seen: 10/25/20 13:06 POD #1 Cystoscopy, left stent placement, left retrograde pyelogram for the 10mm left UPJ stone seen on CT. Urine and blood cultures are still pending. KUB shows only a 5mm lower pole left kidney stone but doesn't identify the 10mm left UPJ stone. Patient's pain is improved, but still notable with activity. Review of Systems Cardiovascular: Cardiovascular: Denies chest pain Respiratory: Respiratory: Reports no additional respiratory complaints Gastrointestinal: Gastrointestinal: Reports abdominal pain, Denies nausea and Denies vomiting Genitourinary: Genitourinary: Denies hematuria, Denies dysuria, Reports flank pain, Denies urinary hesitancy and Denies urinary urgency Exam Resp: Effort & Inspection: normal respiratory effort Cardio: Rate: regular rate GI: GI Palp: Yes Soft to palpation and No Tenderness to palpation present (GI) : General: Yes CVA tenderness on the left Urinary Catheter: Urinary Catheter: patent and draining and urine clear Extrem: General: no edema Objective Data Vital Signs Vital Signs: Vital Signs - 24 hr 10/24/20 15:21 10/24/20 18:51 10/24/20 20:08 Temperature 97.9 F 97.1 F L Pulse Rate 103 H 94 84 Respiratory Rate 20 20 14 Blood Pressure 145/79 H 165/80 H 146/71 H Pulse Oximetry 97 97 100 10/24/20 20:25 10/24/20 20:40 10/24/20 20:55 Temperature Pulse Rate 81 88 84 Respiratory Rate 16 15 16 Blood Pressure 165/77 H 156/81 H 181/84 H Pulse Oximetry 100 99 97 10/24/20 21:10 10/24/20 21:25 10/24/20 21:38 Temperature Pulse Rate 85 88 82 Respiratory Rate 16 18 14 Blood Pressure 171/71 H 143/96 H 161/79 H Pulse Oximetry 97 96 96 10/24/20 22:00 10/24/20 22:15 10/24/20 22:45 Temperature 97.3 F L 97.2 F L 97.6 F Pulse Rate 83 83 90 Respiratory Rate 16 16 16 Blood Pressure 164/87 H 173/72 H 148/76 H Pulse Oximetry 93 93 92 10/24/20 23:45 10/25/20 05:00 10/25/20 10:00 Temperature 97.2 F L 97.2 F L 98.1 F Pulse Rate 85 80 74 Respiratory Rate 16 16 16 Blood Pressure 126/50 L 134/66 173/81 H Pulse Oximetry 96 96 96 Intake/Output Intake/Output: Intake & Output 10/22/20 10/23/20 10/24/20 10/25/20 23:59 23:59 23:59 23:59 Intake Total 2400 1840 Output Total 1120 1550 Balance 1280 290 Meds/Results Medications: Active Medications Generic Name Dose Route Start Last Admin Trade Name Freq PRN Reason Stop Dose Admin Hydrocodone Bitart/Acetaminophen 1 tab 10/24/20 22:44 10/25/20 02:41 Hydrocodone/Acetaminophen (*Crx) 5-325 Mg Tablet PO 1 tab Q4H PRN Administration Pain Rated 4-6 Atorvastatin Calcium 20 mg 10/25/20 09:00 10/25/20 08:25 Atorvastatin 20 Mg Tablet PO 20 mg DAILY FREEMAN Administration Potassium Chloride/Dextrose/Sod Cl 1,000 mls @ 80 mls/hr 10/24/20 22:45 10/25/20 12:22 Kcl 20 Meq/D5/0.45% Sod Chl IV CONT 80 mls/hr .[id number] FREEMAN Administration Ceftriaxone Sodium/Dextrose 1 gm in 50 mls @ 100 mls/hr 10/25/20 17:00 Rocephin 1 Gm/D5w 50 Ml IVPB Q24H FREEMAN Loratadine 10 mg 10/25/20 09:00 10/25/20 08:25 Loratadine 10 Mg Tablet PO 10 mg QAM FREEMAN Administration Oxybutynin Chloride 5 mg 10/24/20 22:50 Oxybutynin Chloride 5 Mg Tablet PO TID PRN stent pain Ra
[2020-10-25 14:00] VITALS: BP 179/70; PULSE 81; RESP 18; TEMP 36.6; O2SAT 95
[2020-10-25] MEDS: BISACODYL 10 MG SUPPOSITORY RECTAL (16:22)
--- NOTE | 2020-10-25 17:35 | PM.IMHP ---
H&P: HPI History of Present Illness Date/Time: Pt admitted with high fevers and nausea and vomiting. Pt went to urgent care had imaging. but they could not do lab on her. Pt had stent placed yesterday for 10 mm stone at the left ureteropelvic junction causing moderate hydronephrosis and left pyelonephritis. Pt has not been in hospital recently. Pt has not opened her bowels for 6 days. Pt having low grade fever today. Seen by urology, Had Kub today after stent placement. Chief Complaint: Fevers and nausea and vomiting Review of Systems Review of Systems: All systems reviewed & are unremarkable except as noted in HPI and below PMFSH Past Medical History Medical History Hepatitis C antibody test negative (03/06/17) Mixed hyperlipidemia Nicotine dependence, cigarettes, uncomplicated Overweight Spinal stenosis of lumbar region at multiple levels Family History Family History Father Diabetes mellitus Family history of elevated blood lipids Family history of alcoholism Patient's father is , Onset Age: 59 Mother Family history of glaucoma Carcinoma of colon Family history of lung cancer Social History Social History Smoking packs per day: 1 Smoking cigarettes per day: 20.0 Years smoked: 50 Smoking pack-years: 50.00 Smoking status: Current every day smoker Tobacco type: cigarettes Alcohol intake: never Substance use type: does not use Gender identity (if verbalized by the patient): Female Spiritual care concerns: No Meds Home Medications and Allergies Home Medications Medication Instructions Recorded Confirmed Type Zyrtec 10 mg PO DAILY 10/24/20 10/25/20 History atorvastatin [Lipitor] 20 mg PO DAILY 10/24/20 10/24/20 History ciprofloxacin HCl [Cipro] 500 mg PO Q12H 10/24/20 10/24/20 History Allergies Allergy/AdvReac Type Severity Reaction Status Date / Time No Known Allergies Allergy Unknown Verified 10/21/20 17:43 Vital Signs Vital Signs - 24 hr 10/24/20 18:51 10/24/20 20:08 10/24/20 20:25 Temperature 36.2 C L Pulse Rate 94 84 81 Respiratory Rate 20 14 16 Blood Pressure 165/80 H 146/71 H 165/77 H Pulse Oximetry 97 100 100 10/24/20 20:40 10/24/20 20:55 10/24/20 21:10 Temperature Pulse Rate 88 84 85 Respiratory Rate 15 16 16 Blood Pressure 156/81 H 181/84 H 171/71 H Pulse Oximetry 99 97 97 10/24/20 21:25 10/24/20 21:38 10/24/20 22:00 Temperature 36.3 C L Pulse Rate 88 82 83 Respiratory Rate 18 14 16 Blood Pressure 143/96 H 161/79 H 164/87 H Pulse Oximetry 96 96 93 10/24/20 22:15 10/24/20 22:45 10/24/20 23:45 Temperature 36.2 C L 36.4 C 36.2 C L Pulse Rate 83 90 85 Respiratory Rate 16 16 16 Blood Pressure 173/72 H 148/76 H 126/50 L Pulse Oximetry 93 92 96 10/25/20 05:00 10/25/20 10:00 10/25/20 14:00 Temperature 36.2 C L 36.7 C 36.6 C Pulse Rate 80 74 81 Respiratory Rate 16 16 18 Blood Pressure 134/66 173/81 H 179/70 H Pulse Oximetry 96 96 95 Exam Const: General: well developed Nutritional Appearance: well nourished HENMT: Head: normocephalic Eyes: General: appearance normal, both eyes and all related structures Pupils: Equal, round and reactive pupils present Neck: Neck: supple Chest: Chest palpation & inspection: normal inspection of the chest Resp: Effort & Inspection: normal respiratory effort Auscultation: clear to auscultation bilaterally Cardio: Jugular venous distension: no JVD Rhythm: regular rhythm Heart sounds: S1 normal heart sound present and S2 normal heart sound present GI: Inspection: normal to inspection GI Palp: No abdominal tenderness, Yes Soft to palpation and No Tenderness to palpation present (GI) Auscultation: normal bowel sounds : General: Yes CVA tenderness (on the left side) Skin: General skin exam:
[2020-10-25 20:00] VITALS: PULSE 80; RESP 16; O2SAT 92
[2020-10-25] MEDS: SENNA/DOCUSATE SODIUM TABLET 1 TAB PO (20:37)
[2020-10-25 20:55] VITALS: BP 150/70; PULSE 80; RESP 16; TEMP 36.5; O2SAT 92
[2020-10-26] VITALS: BP 177/78; PULSE 82; RESP 16; TEMP 36.7; O2SAT 91
[2020-10-26] MEDS: KCL 20 MEQ/D5/0.45% SOD CHL 1,000 ML 80 ML IV CONT ×2 (03:32→17:54)
[2020-10-26 06:00] VITALS: BP 134/75; PULSE 77; RESP 16; TEMP 36.1; O2SAT 94
[2020-10-26] MEDS: ATORVASTATIN 20 MG TABLET PO (07:54)
[2020-10-26] MEDS: LORATADINE 10 MG TABLET PO (07:54)
[2020-10-26] MEDS: polyethylene glycoL 3350 17 GM POWD.PACK PO (07:55)
[2020-10-26 10:00] VITALS: BP 179/79; PULSE 80; RESP 16; TEMP 36.1; O2SAT 96
--- NOTE | 2020-10-26 12:07 | WPDUROPN2 ---
Progress Note: A&P Assessment and Plan (1) Kidney stone: Code(s): N20.0 - Calculus of kidney Status: Acute Assessment and Plan: UPJ stone not identified on repeat KUB, therefore, she will likely need a ureteroscopy with stone extraction. Ok to discharge home anytime, will discuss plan with Dr. Leon and call patient to schedule follow up appointment. (2) Urinary tract infection: Code(s): N39.0 - Urinary tract infection, site not specified Status: Acute Assessment and Plan: Urine culture negative. Subjective Subjective Date/Time Seen: 10/26/20 12:07 POD #2 Cystoscopy, left stent placement, left retrograde pyelogram for the 10mm left UPJ stone seen on CT. Urine culture is negative and blood culture prelim is negative. KUB shows only a 5mm lower pole left kidney stone but doesn't identify the 10mm left UPJ stone, Dr. Leon recommended repeating the KUB, which again came back negative. Patient's pain is improved, but still notable with activity. Review of Systems Cardiovascular: Cardiovascular: Denies chest pain Respiratory: Respiratory: Reports no additional respiratory complaints Gastrointestinal: Gastrointestinal: Reports abdominal pain, Denies nausea and Denies vomiting Genitourinary: Genitourinary: Denies hematuria, Reports flank pain, Denies urinary incontinence and Denies urinary urgency Exam Cardio: Rate: regular rate GI: GI Palp: Yes Soft to palpation and No Tenderness to palpation present (GI) : General: Yes no CVA tenderness Extrem: General: no edema Objective Data Vital Signs Vital Signs: Vital Signs - 24 hr 10/25/20 14:00 10/25/20 20:00 10/25/20 20:55 Temperature 97.8 F 97.7 F Pulse Rate 81 80 80 Respiratory Rate 18 16 16 Blood Pressure 179/70 H 150/70 H Pulse Oximetry 95 92 92 10/26/20 00:00 10/26/20 06:00 10/26/20 10:00 Temperature 98.1 F 97.0 F L 96.9 F L Pulse Rate 82 77 80 Respiratory Rate 16 16 16 Blood Pressure 177/78 H 134/75 179/79 H Pulse Oximetry 91 94 96 Intake/Output Intake/Output: Intake & Output 10/23/20 10/24/20 10/25/20 10/26/20 23:59 23:59 23:59 23:59 Intake Total 2400 2520 1540 Output Total 1120 3125 Balance 1280 -605 1540 Meds/Results Medications: Active Medications Generic Name Dose Route Start Last Admin Trade Name Freq PRN Reason Stop Dose Admin Hydrocodone Bitart/Acetaminophen 1 tab 10/24/20 22:44 10/25/20 02:41 Hydrocodone/Acetaminophen (*Crx) 5-325 Mg Tablet PO 1 tab Q4H PRN Administration Pain Rated 4-6 Atorvastatin Calcium 20 mg 10/25/20 09:00 10/26/20 07:54 Atorvastatin 20 Mg Tablet PO 20 mg DAILY FREEMAN Administration Potassium Chloride/Dextrose/Sod Cl 1,000 mls @ 80 mls/hr 10/24/20 22:45 10/26/20 03:32 Kcl 20 Meq/D5/0.45% Sod Chl IV CONT 80 mls/hr .[id number] FREEMAN Administration Ceftriaxone Sodium/Dextrose 1 gm in 50 mls @ 100 mls/hr 10/25/20 17:00 10/25/20 18:47 Rocephin 1 Gm/D5w 50 Ml IVPB Infused Q24H FREEMAN Infusion Loratadine 10 mg 10/25/20 09:00 10/26/20 07:54 Loratadine 10 Mg Tablet PO 10 mg QAM FREEMAN Administration Oxybutynin Chloride 5 mg 10/24/20 22:50 Oxybutynin Chloride 5 Mg Tablet PO TID PRN stent pain Polyethylene Glycol 17 gm 10/25/20 15:04 10/26/20 07:55 Polyethylene Glycol 3350 17 Gm Powd.Pack PO 17 gm QAM PRN Administration Constipation Senna/Docusate Sodium 1 tab 10/25/20 21:00 10/25/20 20:37 Senna/Docusate Sodium Tablet PO 1 tab HS FREEMAN Administration Radiology Results: ITS Impressions Abdomen/Pelvis CT 10/24/20 17:07 IMPRESSION: 1. 10 mm stone at the left ureteropelvic junction causing moderate hydronephrosis and left pyelonephritis. Retrograde Pyelogram 10/24/20 20:19 IMPRESSION: 1. Please refer to procedure note for full details. Abdomen X-Ray 10/26/20 09:06 IMPRESSION: 1. 5 mm stone in left kidney lower pole. 2. Left internal ureteral stent in
[2020-10-26] MEDS: ACETAMINOPHEN 325 MG TABLET 650 MG PO (12:48)
--- NOTE | 2020-10-26 12:57 | PM.IMPN ---
Progress Note: A&P Assessment and Plan (1) Kidney stone: Code(s): N20.0 - Calculus of kidney Status: Acute Assessment and Plan: Pt had CT on admission and KUB today. Sp stent placement KUB- Left internal ureteral stent in expected position. 2. Left nephrolithiasis. 10/26/20 12:57 Patient is 70 year female initially was seen at the [facility] and was found to have UTI and started the patient on Cipro, later patient was seen and had CT scan of the abdomen and pelvis showed patient has 10 mm left UPJ stone patient was seen by urologist and had a cystoscopy to place the stent but stone was not removed due to concern for infection, stone will be removed later today, initially patient had a fever and suspicious pyelonephritis, patient urine culture is growing E coli pansensitive including Cipro and Rocephin patient was started on Rocephin on 10/25, today patient was seen urologist recommended to remove the Villafana catheter, will continue present management for 1 more day if remains clinically stable will discharge the patient tomorrow. (2) Urinary tract infection: Code(s): N39.0 - Urinary tract infection, site not specified Status: Acute Assessment and Plan: Pt is on iv rocephin awaiting UC CT showed pyelonephritis on the left side. (3) Nicotine dependence, cigarettes, uncomplicated: Code(s): F17.210 - Nicotine dependence, cigarettes, uncomplicated Status: Chronic Assessment and Plan: Pt does not want nicotine patch (4) Constipation: Code(s): K59.00 - Constipation, unspecified Status: Acute Assessment and Plan: Pt to have miralax and senna and suppository to help with constipation Subjective Date/time seen: 10/26/20 12:57 Patient is 70 year female initially was seen at the [facility] and was found to have UTI and started the patient on Cipro, later patient was seen and had CT scan of the abdomen and pelvis showed patient has 10 mm left UPJ stone patient was seen by urologist and had a cystoscopy to place the stent but stone was not removed due to concern for infection, stone will be removed later today, initially patient had a fever and suspicious pyelonephritis, patient urine culture is growing E coli pansensitive including Cipro and Rocephin patient was started on Rocephin on 10/25, today patient was seen urologist recommended to remove the Villafana catheter, will continue present management for 1 more day if remains clinically stable will discharge the patient tomorrow. Review of Systems Review of Systems: All systems reviewed & are unremarkable except as noted in HPI and below Exam Narrative: Exam Narrative: Patient is comfortable, NAD HEENT: eyes are clear and none icteric LUNGS:CTA HEART: RR S1S2 ABD: BS+, Soft and nontender Lower extremities: no edema SKIN: nonjaundiced Neuro: grossly intact. Objective Data Vital Signs Vital Signs: Vital Signs - 24 hr 10/25/20 14:00 10/25/20 20:00 10/25/20 20:55 Temperature 97.8 F 97.7 F Pulse Rate 81 80 80 Respiratory Rate 18 16 16 Blood Pressure 179/70 H 150/70 H Pulse Oximetry 95 92 92 10/26/20 00:00 10/26/20 06:00 10/26/20 10:00 Temperature 98.1 F 97.0 F L 96.9 F L Pulse Rate 82 77 80 Respiratory Rate 16 16 16 Blood Pressure 177/78 H 134/75 179/79 H Pulse Oximetry 91 94 96 Intake/Output Intake/Output: Intake & Output 10/23/20 10/24/20 10/25/20 10/26/20 23:59 23:59 23:59 23:59 Intake Total 2400 2520 1540 Output Total 1120 3125 Balance 1280 -605 1540 Meds/Results Medications: Active Medications Generic Name Dose Route Start Last Admin Trade Name Freq PRN Reason Stop Dose Admin Acetaminophen 650 mg 10/26/20 12:31 10/26/20 12:48 Acetaminophen 325 Mg Tablet PO 650 mg Q4H PRN Administration Headache Hydrocodone Bitart/Acetaminophen 1 tab 10/24/20 22:44 10/25/20 02:41 Hydrocodone/Acetaminophen (*Crx) 5-325 Mg Tablet PO 1 tab Q4H PRN Administration
[2020-10-26 14:00] VITALS: BP 152/68; PULSE 74; RESP 16; TEMP 36.1; O2SAT 94
[2020-10-26 20:00] VITALS: PULSE 74; RESP 16; O2SAT 94
[2020-10-26] MEDS: SENNA/DOCUSATE SODIUM TABLET 1 TAB PO (20:43)
[2020-10-26 22:00] VITALS: BP 161/88; PULSE 81; RESP 20; TEMP 36.1; O2SAT 98
[2020-10-27] MEDS: KCL 20 MEQ/D5/0.45% SOD CHL 1,000 ML 80 ML IV CONT (05:51)
[2020-10-27 06:00] VITALS: BP 134/73; PULSE 115; RESP 20; TEMP 36.2; O2SAT 99
[2020-10-27] MEDS: ATORVASTATIN 20 MG TABLET PO (09:21)
[2020-10-27] MEDS: LORATADINE 10 MG TABLET PO (09:21)
--- NOTE | 2020-10-27 10:25 | PM.DS ---
DS: Admitting Diagnosis Admitting Diagnosis Admitting Diagnosis: Chief Complaint: Fevers and nausea and vomiting DS: Discharge Diagnosis Discharge Diagnosis (1) Kidney stone: Code(s): N20.0 - Calculus of kidney Status: Acute Assessment and Plan: Pt had CT on admission and KUB today. Sp stent placement KUB- Left internal ureteral stent in expected position. 2. Left nephrolithiasis. 10/26/20 12:57 Patient is 70 year female initially was seen at the [facility] and was found to have UTI and started the patient on Cipro, later patient was seen and had CT scan of the abdomen and pelvis showed patient has 10 mm left UPJ stone patient was seen by urologist and had a cystoscopy to place the stent but stone was not removed due to concern for infection, stone will be removed later today, initially patient had a fever and suspicious pyelonephritis, patient urine culture is growing E coli pansensitive including Cipro and Rocephin patient was started on Rocephin on 10/25, today patient was seen urologist recommended to remove the Villafana catheter, will continue present management for 1 more day if remains clinically stable will discharge the patient tomorrow. (2) Urinary tract infection: Code(s): N39.0 - Urinary tract infection, site not specified Status: Acute Assessment and Plan: Pt is on iv rocephin awaiting UC CT showed pyelonephritis on the left side. (3) Nicotine dependence, cigarettes, uncomplicated: Code(s): F17.210 - Nicotine dependence, cigarettes, uncomplicated Status: Chronic Assessment and Plan: Pt does not want nicotine patch (4) Constipation: Code(s): K59.00 - Constipation, unspecified Status: Acute Assessment and Plan: Pt to have miralax and senna and suppository to help with constipation DS: Summary Hospital Course Reason for hospitalization: Pt went to urgent care had imaging. but they could not do lab on her. Pt had stent placed yesterday for 10 mm stone at the left ureteropelvic junction causing moderate hydronephrosis and left pyelonephritis. Pt has not been in hospital recently. Pt has not opened her bowels for 6 days. Pt having low grade fever today. Seen by urology, Had Kub today after stent placement. Chief Complaint: Fevers and nausea and vomiting Hospital Course: Patient is 70 year female initially was seen at the [facility] and was found to have UTI and started the patient on Cipro, later patient was seen and had CT scan of the abdomen and pelvis showed patient has 10 mm left UPJ stone patient was seen by urologist and had a cystoscopy to place the stent but stone was not removed due to concern for infection, stone will be removed later today, initially patient had a fever and suspicious pyelonephritis, patient urine culture is growing E coli pansensitive including Cipro and Rocephin patient was started on Rocephin on 10/25, today patient was seen urologist recommended to remove the Villafana catheter, will continue present management for 1 more day if remains clinically stable will discharge the patient tomorrow. Patient is clinically stable, will discharge today Time Spent with Patient Time attestation: Total time spent providing and/or coordinating discharge services: Exam Narrative: Exam Narrative: Patient is comfortable, NAD HEENT: eyes are clear and none icteric LUNGS:CTA HEART: RR S1S2 ABD: BS+, Soft and nontender Lower extremities: no edema SKIN: nonjaundiced Neuro: grossly intact. DS: Data Data Completed and Pending Labs on day of discharge: Preliminary micro results at discharge 10/24/20 16:44 Blood Culture - Preliminary Blood 10/24/20 16:53 Blood Culture - Preliminary Blood Discharge Plan Discharge Attending physician on discharge: Jim Swann Consulting providers: Gigi Velasquez ; Rm Bejarano ; Jim Swann ; Wesley Sabillon ; Olivia Robbins ; Ann Campbell ; Denny Arellano V. Discharging
== END 2020-10-27 12:59 | disposition home or self-care (01) ==
LOC: ANHED 17:49 → ANHSURGERY 18:52 → ANH2MED 22:20
PROVIDERS: Emergency Medicine Emergency Medical Services; Urology; Admitting Provider Internal Medicine; Emergency Provider Emergency Medicine; PCP Family Medicine; Visit Provider Internal Medicine
PROC: (CPT 52352; principal; 2020-10-24 19:30)
DX: N13.6 Pyonephrosis (principal); B96.20 Unspecified Escherichia coli [E. coli] as the cause of diseases classified elsewhere; K59.00 Constipation, unspecified; R11.2 Nausea with vomiting, unspecified; E78.2 Mixed hyperlipidemia; F17.210 Nicotine dependence, cigarettes, uncomplicated
CPT/HCPCS: 52332; 36415; 74018; 74177; 74420; 80053; 81001; 83605; 83690; 85025; 87040; 87086; 96361; 96365; 96375; 96376; 97161; 97165; 99285; A9270; C1758; C1769; C2617; G0378; J0696; J1100; J2370; J2405; J2704; J3010; J3480; J7030; J7120; Q9966; Q9967

== ENCOUNTER → 2020-11-09 02:23 | Outpatient (CLI) | payer MEDICARE, SELFPAY ==
[2020-11-09 23:32] LABS: SARS-CoV-2 RNA PCR Negative
== END ==
PROVIDERS: PCP Family Medicine; Visit Provider Urology
DX: Z01.812 Encounter for preprocedural laboratory examination (principal); Z20.822 Contact with and (suspected) exposure to COVID-19
CPT/HCPCS: C9803; U0003; U0005

== ENCOUNTER 2020-11-09 08:31 | Outpatient (CLI) | payer MEDICARE, SELFPAY ==
[2020-11-09 10:07] LABS: INR 0.9; Prothrombin Time 13.1 Seconds (11.1-14.7)
[2020-11-09 10:08] LABS: Partial Thromboplastin Time 25.8 SECONDS (22.3-36.8)
--- NOTE | 2020-11-09 10:15 | ECG_ITS ---
Measurements Intervals [place] Rate: 84 P: 56 SD: 186 QRS: 60 QRSD: 86 T: 40 QT: 356 QTc: 422 Interpretive Statements SINUS RHYTHM POSSIBLE LEFT ATRIAL ENLARGEMENT INCOMPLETE RIGHT BUNDLE BRANCH BLOCK BORDERLINE ECG Electronically Signed On 11-09-2020 9:02:50 CDT by Juan Marie D.O.
== END 2020-11-09 08:32 | disposition home or self-care (01) ==
LOC: ANHSURGERY 08:33
PROVIDERS: PCP Family Medicine; Visit Provider Urology
DX: N20.0 Calculus of kidney (principal); E78.2 Mixed hyperlipidemia; Z01.818 Encounter for other preprocedural examination
CPT/HCPCS: 36415; 85610; 85730; 87086; 93005

== ENCOUNTER 2020-11-12 02:41 | Day surgery (SDC) | payer MEDICARE, SELFPAY ==
[2020-11-08 13:56] VITALS: BMI 27.7
[2020-11-12] VITALS (7 sets, daily range): BP systolic 114–158; BP diastolic 68–83; PULSE 62–88; RESP 14–18; TEMP 36.2–36.4; O2SAT 96–100
--- NOTE | ~2020-11-12 | XR_ITS ---
XR abdomen/kub 1V 11/12/2020 07:44 Indication: Renal stones Procedure: KUB Comparison: 10/26/2020 Findings: There is a left internal ureteral stent in expected position. There are stones in the lower pole of the left kidney measuring up to 8 mm maximum dimension. There are pelvic phleboliths and vas cular calcifications. There is severe lumbar spondylosis. Impression: 1: Left nephrolithiasis. Reviewed, dictated and finalized at location B. Impression: 1: Left nephrolithiasis.
--- NOTE | ~2020-11-12 | CT_ITS ---
EXAMINATION: CT abdomen pelvis wo con DATE: 11/12/2020 08:22 INDICATION: Left renal stones TECHNIQUE: Computed tomography (CT) of the abdomen and pelvis was performed without intravenous contr ast. The dose-length product was 243.60 mGy-cm. Automated exposure control and iterative reconstructi on technique were employed. COMPARISON: CT dated 10/24/2020. FINDINGS: There is a left internal ureteral stent in expected position. There are 3 left renal stones measuring up to 4 mm. There are pelvic phleboliths. Mild left perinephric stranding. Mild atherosclerosis without aneurysm. No lymphadenopathy. The liver, spleen, pancreas, adrenal gland s and right kidney are unremarkable. Gallbladder is present. Nonobstructive bowel gas pattern. No noe e air or free fluid. Normal appendix. Severe lumbar spondylosis. There is scoliosis. IMPRESSION: 1. Left nephrolithiasis, largest measuring 4 mm. Left internal ureteral stent in expected position. M ild left perinephric edema, nonspecific. Reviewed, dictated and finalized at location B. IMPRESSION: 1. Left nephrolithiasis, largest measuring 4 mm. Left internal ureteral stent i n expected position. Mild left perinephric edema, nonspecific.
--- NOTE | 2020-11-12 08:15 | SUR.PREOP ---
[address] for ct abd/pelvis per dr baker.
[2020-11-12] MEDS: ACETAMINOPHEN 500 MG TABLET 1000 MG PO (08:27)
[2020-11-12] MEDS: LACTATED RINGERS 1,000 ML 30 ML IV CONT ×2 (08:44→10:32)
--- NOTE | 2020-11-12 09:10 | WPDANESEPPF ---
Anes - Initial Pre Proc Eval Procedure: Operation Date: 11/12/20 09:45 Proposed Procedures p Left Extracorporeal Shock Wave Lithotripsy - Taye Mckeon MD s Cystoscopy with Left Stent Removal - Taye Mckeon MD Date/Time: 11/12/20 09:10 Surgeon: Taye Mckeon MD Pre Op Diagnosis: left kidney stone Patient Data Age: 70 Gender: F Height: 5 ft 4.5 in Weight: 72.5 kg Last Vital Signs Temp 36.4 C L 11/12/20 08:11 Pulse 88 11/12/20 08:11 Resp 16 11/12/20 08:11 BP 122/82 11/12/20 08:11 Pulse Ox 97 11/12/20 08:11 Allergies Allergy/AdvReac Type Severity Reaction Status Date / Time No Known Allergies Allergy Unknown Verified 11/12/20 08:24 Home Medications Medication Instructions Recorded Confirmed Type Zyrtec 10 mg PO DAILY 10/24/20 11/12/20 History atorvastatin [Lipitor] 20 mg PO DAILY 10/24/20 11/12/20 History oxybutynin chloride 5 mg PO TID PRN #90 tablet 10/27/20 11/12/20 Rx Patient hx anesthesia problems: none Family hx anesthesia problems: none PMFSH Past Medical History Medical History Hepatitis C antibody test negative (03/06/17) Mixed hyperlipidemia Nicotine dependence, cigarettes, uncomplicated Overweight Spinal stenosis of lumbar region at multiple levels Family History Family History Father Diabetes mellitus Family history of elevated blood lipids Family history of alcoholism Patient's father is , Onset Age: 59 Mother Family history of glaucoma Carcinoma of colon Family history of lung cancer Social History Social History Smoking packs per day: 1 Smoking cigarettes per day: 20.0 Years smoked: 50 Smoking pack-years: 50.00 Smoking status: Current every day smoker Tobacco type: cigarettes Alcohol intake: never Substance use type: does not use Living arrangements: alone Gender identity (if verbalized by the patient): Female Spiritual care concerns: No Anes - Eval Final PreProcedure Day of Procedure 11/12/20 09:10 Patient weight: overweight Heart: regular rate and rhythm Lungs: clear to auscultation Airway: Mallampati scale class II Neurological: alert and oriented Last oral intake: >/= 8 hours ASA classification: II Emergent: no Anesthetic plan: proceed Anesthesia type and monitoring: general LMA and standard monitoring Informed Consent: The patient's anesthetic plan and its attendant risks and benefits were discussed with the patient/family/POA. Questions were solicited and answers provided to the satisfaction of the patient/family/POA.
--- NOTE | 2020-11-12 09:32 | WPDHPUPDATE1 ---
History and Physical Update Update Date/Time: 11/12/20 09:32 History and Physical has been reviewed, including an updated exam of the patient. There are NO changes in the patient's condition. Risks, benefits, and alternatives have been discussed and questions answered. Patient agrees to proceed with procedure.
[2020-11-12] MEDS: ceFAZolin 2 GM/D5W 50 ML 2 GM/50 ML BAG IVPB (09:39)
--- NOTE | 2020-11-12 10:46 | W.PM.PROC2 ---
Procedure Note - Detailed Date of Procedure 11/12/20 Pre-op Diagnosis left kidney stone Post-op Diagnosis same Procedure Performed Left renal ESWL Surgeon Taye Mckeon MD Anesthesia general Findings Two left lower pole kidney stones Description of Procedure Informed consents obtained. Patient taken the operating. The stones was identified in the lower pole calyx. We used the Dornier lithotripsy device in order to deliver 2500 shock waves to the largest of the 2 lower pole stones. There appeared to be fair fragmentation of the stone with a power of 1 to 4. The patient tolerated procedure well she was awakened taken recovery room stable condition. The patient will follow-up in the office in 1 to 2 weeks with a KUB to assess for stone fragmentation and plan future intervention. Drains No Packing No Pathology none sent Complications No immediate complications Condition stable Disposition PACU
== END 2020-11-12 12:05 | disposition home or self-care (01) ==
PROVIDERS: PCP Family Medicine; Visit Provider Urology
PROC: (CPT 50590; principal; 2020-11-12 09:45)
DX: N20.0 Calculus of kidney (principal); E78.2 Mixed hyperlipidemia; M48.061 Spinal stenosis, lumbar region without neurogenic claudication; F17.210 Nicotine dependence, cigarettes, uncomplicated
CPT/HCPCS: 50590; 36415; 74018; 74176; 85610; 85730; 87086; 93005; A9270; C9803; J0690; J1100; J2405; J2704; J7030; J7120; U0003; U0005

== ENCOUNTER 2020-11-22 10:02 | Outpatient (CLI) | payer MEDICARE, SELFPAY ==
--- NOTE | ~2020-11-22 | XR_ITS ---
EXAMINATION: XR abdomen/kub 1V INDICATION: Left nephrolithiasis TECHNIQUE: Supine views of the abdomen were obtained on 2 radiographs. COMPARISON: 11/12/2020 FINDINGS: A left internal ureteral stent is in expected position. The previously described stones of the left kidney lower pole are not well demonstrated, consistent with interval lithotripsy. No defini te stone fragments are identified along the internal ureteral stent. There are phleboliths of the rig ht pelvis. Calcified atherosclerosis is noted. No dilated loops of bowel are evident. There is severe lumbar spondylosis. IMPRESSION: 1. Findings consistent with interval lithotripsy for left kidney stones. Left internal ureteral stent in expected position. Reviewed, dictated and finalized at location A. IMPRESSION: 1. Findings consistent with interval lithotripsy for left kidney stones. Left i nternal ureteral stent in expected position.
== END 2020-11-22 10:03 | disposition home or self-care (01) ==
PROVIDERS: PCP Family Medicine; Visit Provider Urology
DX: N20.0 Calculus of kidney (principal)
CPT/HCPCS: 74018

== ENCOUNTER 2021-04-27 10:01 | Emergency (ER) | payer MEDICARE, SELFPAY ==
--- NOTE | ~2021-04-27 | XR_ITS ---
EXAMINATION: XR wrist RT min 3V EXAM DATE: 04/27/2021 10:26 INDICATION: Pain radial side Rt wrist x months, no injury. TECHNIQUE: Right wrist frontal, frontal with ulnar deviation, oblique and lateral projections obtain ed and reviewed. There is no prior study for comparison. FINDINGS: Right wrist scapholunate joint space is maintained. There is moderate triscaphe primary os teoarthritis, mild at the 1st carpometacarpal joint. There are no bony erosions identified. There a re no acute sacrum process fractures or dislocations identified. There is no subcutaneous gas. The soft tissue is unremarkable. There are no radiopaque foreign bodies. IMPRESSION: Moderate right triscaphe, mild 1st carpometacarpal osteoarthritis. Reviewed, dictated and finalized at location A. EDGER
[2021-04-27 10:05] VITALS: BP 191/88; PULSE 91; RESP 16; TEMP 36.5; O2SAT 99
--- NOTE | 2021-04-27 10:12 | ED.URI ---
HPI - URI/Sore Throat General Chief Complaint: Extremity Injury, Upper Stated Complaint: R WRIST PAIN Time Seen by Provider: 04/27/21 10:07 Source: patient Mode of arrival: ambulatory Limitations: no limitations History of Present Illness HPI Narrative: Delmy Mchugh is a 70 yo femalw with high cholesterol and bladder incontinence comes with right wrist pain that seems to worsen at evening and night when resting, pain with lifting, grasping-has arthritis and back was concerned with the sudden onset of pain in the last 10 days in her hand Related Data Home Medications Medication Instructions Recorded Confirmed Zyrtec 10 mg PO DAILY 10/24/20 04/27/21 Allergies Allergy/AdvReac Type Severity Reaction Status Date / Time No Known Allergies Allergy Unknown Verified 04/27/21 10:11 Review of Systems Review of Systems: CONSTITUTIONAL: Denies fever, chills, sweats. EYES: Denies visual changes, redness, discharge. ENT: Denies rhinorrhea, congestion, sore throat, otalgia. CARDIOVASCULAR: Denies chest pain, palpitations, edema. RESPIRATORY: Denies dyspnea, wheezing, cough GASTROINTESTINAL: Denies abdominal pain, nausea, vomiting, diarrhea. GENITOURINARY: Denies dysuria, hematuria, abnormal discharge SKIN: Denies rash or itching. NEUROLOGIC: Denies numbness, or focal weakness. PSYCHIATRIC: Denies anxiety or depression. Right wrist pain PMFSH Past Medical History Medical History Hepatitis C antibody test negative (03/06/17) Mixed hyperlipidemia Nicotine dependence, cigarettes, uncomplicated Overweight Spinal stenosis of lumbar region at multiple levels Family History Family History Father Diabetes mellitus Family history of elevated blood lipids Family history of alcoholism Patient's father is , Onset Age: 59 Mother Family history of glaucoma Carcinoma of colon Family history of lung cancer Social History Social History Smoking packs per day: 1 Smoking cigarettes per day: 20.0 Years smoked: 50 Smoking pack-years: 50.00 Smoking status: Current every day smoker Tobacco type: cigarettes Alcohol intake: never Substance use type: does not use Gender identity (if verbalized by the patient): Female Spiritual care concerns: No Comments At time of signature, I agree with nursing past medical, surgical, social and family history. There is no relevant family history pertinent to the presenting complaint. Blood pressure is elevated at this visit and she must follow-up with primary care physician within the week Exam Narrative: GENERAL: This is a well-nourished, well-developed patient, in mild distress. HEAD: normocephalic, atraumatic. EYES: Sclera clear/white. Vision is grossly intact. EARS: External ears normal, Hearing grossly intact. NOSE: External nose normal without nasal discharge, nares without redness, no rhinorrhea. THROAT: Mucous membranes moist, NECK: Neck supple, CARDIOVASCULAR: Regular rate and rhythm without murmurs, gallops, or rubs. RESPIRATORY: Clear to auscultation. Breath sounds equal bilaterally. No wheezes, rales, or rhonchi. GASTROINTESTINAL: Abdomen soft, non-tender, SKIN: warm, intact with no suspicious lesions or rash, good texture and turgor. NEURO: awake, alert, and oriented to person, place and time. There were no obvious focal neurologic abnormalities. Steady gait EXTREMITIES: Normal range of motion. States has right hand pain that is 8 out of 10 at the base of the thumb she has good inner finger strength and handgrip BACK: Nontender without deformity Course Course Emergency Course: Patient comes with right wrist pain that started about a week ago she rates as 8 out of 10 X-ray of right wrist moderate right tricaph first carpometacarpal osteoarthritis Started on Medrol Dosepak
[2021-04-27] MEDS: predniSONE 20 MG TABLET 40 MG PO (10:48)
== END 2021-04-27 11:08 | disposition home or self-care (01) ==
PROVIDERS: Emergency Provider Nurse Practitioner; PCP Family Medicine
DX: M19.041 Primary osteoarthritis, right hand (principal); E78.2 Mixed hyperlipidemia; F17.210 Nicotine dependence, cigarettes, uncomplicated
CPT/HCPCS: 73110; 99213; G0463; J7512

== ENCOUNTER 2022-01-24 16:58 | Emergency (ER) | payer MEDICARE, SELFPAY ==
[2022-01-24] VITALS (10 sets, daily range): BP systolic 168–210; BP diastolic 84–97; PULSE 78–104; RESP 17–22; TEMP 36.8; O2SAT 93–99
--- NOTE | ~2022-01-24 | XR_ITS ---
EXAMINATION: XR chest 2V Exam Date/Time: 01/24/2022 18:28 CDT HISTORY: hypertension; smoker Comparison: 10/21/2020. RESULT: Lines, tubes, and devices: None. Lungs and pleura: Senescent change, otherwise clear. Cardiomediastinal silhouette: Stable. Other: No acute osseous or upper abdominal finding. IMPRESSION: No acute cardiopulmonary process. Reviewed, dictated and finalized at location K.
--- NOTE | 2022-01-24 17:40 | ECG_ITS ---
Measurements Intervals [place] Rate: 85 P: 3 ME: 198 QRS: 15 QRSD: 93 T: 47 QT: 375 QTc: 448 Interpretive Statements SINUS RHYTHM POSSIBLE LEFT ATRIAL ENLARGEMENT [-0.1mV P WAVE IN V1/V2] POSSIBLE RIGHT VENTRICULAR CONDUCTION DELAY [RSR (QR) IN V1/V2] BORDERLINE ECG COMPARED TO ECG 11/09/2020 08:55:26 NO SIGNIFICANT CHANGES Electronically Signed On 01-25-2022 15:58:35 CDT by Sonu Washington M.D.
[2022-01-24 18:18] LABS: Basophils Absolute Auto 0.1 K/mm3 (0.0-0.1); Basophils Percent Auto 0.7 % (0.2-1.2); Eosinophils Absolute Auto 0.2 K/mm3 (0-0.3); Eosinophils Percent Auto 2.1 % (0-4.4); Hematocrit 44.9 % (37.0-47.0); Immature Granulocyte Absolute 0.02 K/mm3 (0.00-0.031); Immature Granulocyte Percent A 0.2 % (0-0.5); Lymphocytes Absolute Auto 2.97 K/mm3 (0.9-3.2); Lymphocytes Percent Auto 31.3 % (18.3-44.2); Mean Corpuscular HGB Conc 33.4 g/dl (32-36); Mean Corpuscular Hemoglobin 31.3 pg (26-34); Mean Corpuscular Volume 93.7 fl (80-100); Mean Platelet Volume 9.3 fl (7.4-10.4); Monocytes Absolute Auto 0.8 K/mm3 (0.1-0.6); Monocytes Percent Auto 8.1 % (2.6-8.5); Neutrophils Absolute Auto 5.5 K/mm3 (1.3-6.7); Neutrophils Percent Auto 57.6 % (45.5-73.1); Platelet Count Result 285 k/mm3 (150-375); Red Blood Count 4.79 M/mm3 (4.2-5.4); Red Cell Distribution Width 13.5 % (11.5-14.5); White Blood Count 9.5 K/mm3 (4.5-10.0)
[2022-01-24 18:30] LABS: Prothrombin Time 12.7 Seconds (11.1-14.7)
[2022-01-24 18:31] LABS: Partial Thromboplastin Time 25.2 SECONDS (22.3-36.8)
[2022-01-24 18:34] LABS: Alanine Aminotransferase 21 U/L (6-35); Albumin Level 4.8 g/dL (3.5-5.1); Alkaline Phosphatase 92 U/L (38-126); Anion Gap 10 mmol/L (8-16); Aspartate Amino Transferase 32 U/L (14-36); Bilirubin,Total 0.5 mg/dL (0.2-1.3); Blood Urea Nitrogen 13 mg/dL (7-17); Calcium 9.3 mg/dL (8.4-10.2); Carbon Dioxide 25 mmol/L (22-30); Chloride 105 mmol/L (98-107); Estimated CRCL calculation 54 ml/min; Estimated Glomerular Filt Rate > 60; Glucose 103 mg/dL (65-110); Potassium 3.7 mmol/L (3.4-5.0); Sodium 140 mmol/L (137-145)
[2022-01-24 18:45] LABS: Troponin I < 0.012 ng/mL (0.000-0.034)
[2022-01-24] MEDS: amLODIPine BESYLATE 5 MG TABLET PO (19:37)
--- NOTE | 2022-01-24 20:50 | ED.GENADULT ---
HPI - General Adult General Chief complaint: Recheck/Abnormal Lab/Rx Stated complaint: high bp Time Seen by Provider: 01/24/22 17:33 History of Present Illness HPI narrative: Patient is a 71-year-old female who presents ER with concerns of elevated blood pressure. Patient was at the dentist and they noted that her blood pressure was high and it would not go down so they thought she needed to be seen in the emergency room. She has no chest pain or chest pressure. No difficulty breathing. On the way here she did feel little flushed and thought she might be starting to have hot flashes. She also developed a temporal headache. No change in vision or hearing. Related Data Home Medications Medication Instructions Recorded Confirmed Zyrtec 10 mg PO DAILY ALLERGY 10/24/20 05/09/21 Allergies Allergy/AdvReac Type Severity Reaction Status Date / Time No Known Allergies Allergy Unknown Verified 01/24/22 17:34 Review of Systems Review of Systems: All systems reviewed & are unremarkable except as noted in HPI and below Constitutional: Constitutional: Denies chills, Denies fatigue and Denies fever(s) Eyes: Eyes: Denies change in vision and Denies photophobia Cardiovascular: Cardiovascular: Denies chest pain, Denies rapid heart rate and Denies radiating jaw, neck or arm pain Respiratory: Respiratory: Denies cough and Denies dyspnea Gastrointestinal: Gastrointestinal: Denies abdominal pain, Denies nausea and Denies vomiting Neurologic: Denies syncope, Reports headache(s), Denies focal weakness and Denies numbness PMFSH Past Medical History Medical History Hepatitis C antibody test negative (03/06/17) Mixed hyperlipidemia Nicotine dependence, cigarettes, uncomplicated Overweight Spinal stenosis of lumbar region at multiple levels Family History Family History Father Diabetes mellitus Family history of elevated blood lipids Family history of alcoholism Patient's father is , Onset Age: 59 Mother Family history of glaucoma Carcinoma of colon Family history of lung cancer Social History Social History Smoking packs per day: 1 Smoking cigarettes per day: 20.0 Years smoked: 50 Smoking pack-years: 50.00 Tobacco type: cigarettes Alcohol intake: never Substance use type: does not use Gender identity (if verbalized by the patient): Female Spiritual care concerns: No Exam Narrative: GENERAL: Well-appearing, well-nourished, and in no acute distress. HEAD: Normocephalic, atraumatic. EYES: PERRL and EOMI. ENT: Mucous membranes moist. CHEST: Clear to auscultation. No respiratory distress. HEART: Regular rate and rhythm. Normal peripheral pulses. ABDOMEN: Soft, nontender, nondistended. EXTREMITIES: Normal range of motion. No edema. SKIN: Warm, dry, no rash. NEURO: Alert and oriented x3. PSYCH: Normal mood and affect. Course Course Emergency Course: Patient resting comfortably. Blood pressure currently 168/88. No chest pain or chest pressure. No difficulty breathing. She is received of the amlodipine. Discussed with patient that she can probably tolerate increased dose at 5 mg. Will prescribe it for home. Chart review shows multiple blood pressures that are elevated in the past. Patient likely has chronic hypertension with acute exacerbations that needs to start being managed. Instructed her to purchase a blood pressure cuff for home. Vital Signs Vital signs: Vital Signs Temperature 98.2 F 01/24/22 17:02 Pulse Rate 104 H 01/24/22 17:02 Respiratory Rate 18 01/24/22 17:02 Blood Pressure 210/97 H 01/24/22 17:02 Pulse Oximetry 98 01/24/22 17:02 Oxygen Delivery Room Air 01/24/22 17:02 Temperature 98.2 F 01/24/22 17:02 Pulse Rate 82 01/24/22 21:01 Respiratory Rate 20
== END 2022-01-24 21:15 | disposition home or self-care (01) ==
PROVIDERS: Emergency Provider Emergency Medicine; PCP Family Medicine
DX: I10 Essential (primary) hypertension (principal); E78.2 Mixed hyperlipidemia; E66.3 Overweight; Z68.28 Body mass index [BMI] 28.0-28.9, adult; F17.210 Nicotine dependence, cigarettes, uncomplicated; R94.31 Abnormal electrocardiogram [ECG] [EKG]
CPT/HCPCS: 36415; 71046; 80053; 84484; 85025; 85610; 85730; 93005; 99284; A9270

== ENCOUNTER 2022-02-08 12:53 | Outpatient (CLI) | payer MEDICARE, SELFPAY ==
[2022-02-08 14:10] LABS: SARS-CoV-2 RNA PCR Negative (Negative)
== END 2022-02-08 12:54 | disposition home or self-care (01) ==
PROVIDERS: PCP Nurse Practitioner; Visit Provider Nurse Practitioner
DX: R05.9 Cough, unspecified (principal); Z20.822 Contact with and (suspected) exposure to COVID-19
CPT/HCPCS: C9803; U0003; U0005

== ENCOUNTER → 2022-02-14 10:36 | Outpatient (CLI) | payer MEDICARE, SELFPAY ==
--- NOTE | ~2022-02-14 | XR_ITS ---
EXAMINATION: XR chest 2V DATE: 02/14/2022 10:56 INDICATION: Cough, unspecified. TECHNIQUE: Frontal and lateral views of the chest were obtained. COMPARISON: Chest 2 views 01/24/2022 FINDINGS: There is mild scarring at the lung apices. No pleural effusion or pneumothorax. The heart s ize is normal. There are prominent paracardial fat pads. IMPRESSION: 1. Stable mild scarring at the lung apices. Reviewed, dictated and finalized at location A.
== END ==
PROVIDERS: PCP Family Medicine; Visit Provider Nurse Practitioner
DX: R05.9 Cough, unspecified (principal); R91.8 Other nonspecific abnormal finding of lung field
CPT/HCPCS: 71046

== ENCOUNTER 2022-05-01 08:55 | Outpatient (CLI) | payer MEDICARE, SELFPAY ==
--- NOTE | ~2022-05-01 | MM_ITS ---
EXAMINATION: MM screening audie BI w jeremias HISTORY: Screening mammogram, family history of breast cancer in her sister. TECHNIQUE: Craniocaudal and mediolateral oblique 3-D tomosynthesis images were obtained and synthetic 2-D images were generated. CAD analysis was submitted and interpreted. COMPARISON: 09/28/2020, 08/06/2019, 06/14/2018 BREAST PARENCHYMAL COMPOSITION: There are scattered areas of fibroglandular density. FINDINGS: No suspicious mass, calcification, or architectural distortion are identified in either maria de jesus ast to suggest malignancy. There has been no suspicious interval change. IMPRESSION: 1. No mammographic evidence of malignancy. 2. Recommend routine screening mammography in one year. BI-RADS Category 1: Negative Reviewed, dictated and finalized at location A. CATION TECH
== END 2022-05-01 08:56 | disposition home or self-care (01) ==
LOC: ANHIMG 08:57
PROVIDERS: PCP Family Medicine; Visit Provider Family Medicine
DX: Z12.31 Encounter for screening mammogram for malignant neoplasm of breast (principal)
CPT/HCPCS: 77063; 77067

== ENCOUNTER 2022-09-08 08:46 | Emergency (ER) | payer MEDICARE, SELFPAY ==
--- NOTE | ~2022-09-08 | CT_ITS ---
EXAMINATION: CT soft tissue neck w con DATE: 09/08/2022 12:58 INDICATION: Left facial swelling. TECHNIQUE: Computed tomography (CT) of the neck was performed with 75 mL Omnipaque-350 intravenous co ntrast. Automated exposure control and iterative reconstruction technique were employed. The dose-nhung gth product was 508.27 mGy-cm. COMPARISON: None FINDINGS: There is mild scarring at the lung apices. There is mild emphysema. The orbits are normal. There is fat stranding in left cheek, consistent with edema versus inflammation. There is plaque in t he proximal internal carotid arteries. The paranasal sinuses are clear. The mastoid air cells are nor mal. IMPRESSION: 1. Left cheek fat stranding, consistent with edema versus inflammation. Reviewed, dictated and finalized at location A.
[2022-09-08 08:49] VITALS: BP 171/72; PULSE 108; RESP 20; TEMP 36.3; O2SAT 99
--- NOTE | 2022-09-08 10:30 | ED.GENADULT ---
HPI - General Adult General Chief complaint: Unspecified <MALENA Shultz Last Filed: 09/08/22 18:00> Stated complaint: Facial swelling/pain <MALENA Shultz Last Filed: 09/08/22 18:00> Time Seen by Provider: 09/08/22 09:06 <MALENA Shultz Last Filed: 09/08/22 18:00> Source: patient <MALENA Shultz Last Filed: 09/08/22 18:00> Mode of arrival: ambulatory <MALENA Shultz Last Filed: 09/08/22 18:00> Limitations: no limitations <MALENA Shultz Last Filed: 09/08/22 18:00> History of Present Illness HPI narrative: Patient is a 72 y/o female who presents to the ED with c/o L sided facial pain, swelling, blisters. Patient reports she first noticed scattered blisters to the left side of her mouth, her hard palate, and nose last Sunday. She experienced pain to the left side of her face, radiating into her L ear, left-sided teeth and mouth, and around her L eye. She denies any blisters around her eye or changes in her vision. Denies pain with eye movement. She was seen by her dentist on Sunday and thought she may have a dental infection causing symptoms. She was started on Flagyl at that time without improvement of symptoms. She was unable to get into see her primary care doctor and was referred to the ED for further evaluation. Patient denies any fever, nausea, vomiting, difficulty swallowing or breathing, ear drainage, eye drainage. Denies any facial droop, slurred speech, numbness. <MALENA Shultz Last Filed: 09/08/22 18:00> Related Data Home medications: Home Medications Medication Instructions Recorded Confirmed Zyrtec 10 mg PO DAILY ALLERGY 10/24/20 02/09/22 <MALENA Shultz Last Filed: 09/08/22 18:00> Allergies/adverse reactions: Allergies Allergy/AdvReac Type Severity Reaction Status Date / Time No Known Allergies Allergy Unknown Verified 09/08/22 08:52 <Tiffany Stoner PA-C - Last Filed: 09/08/22 18:00> Review of Systems Review of Systems: CONSTITUTIONAL: Denies fever, chills, or sweats. EYES: See HPI. ENT: See HPI. CARDIOVASCULAR: Denies chest pain. RESPIRATORY: Denies dyspnea. GASTROINTESTINAL: Denies abdominal pain, nausea, vomiting. SKIN: See HPI. NEUROLOGICAL: See HPI. <Tiffany Stoner PA-C - Last Filed: 09/08/22 18:00> All systems reviewed & are unremarkable except as noted in HPI and below <Tiffany Stoner PA-C - Last Filed: 09/08/22 18:00> [facility] Past Medical History Medical History: Medical History (Updated 09/08/22 @ 14:10 by Tiffany Stoner PA-C) Hepatitis C antibody test negative (03/06/17) Mixed hyperlipidemia Nicotine dependence, cigarettes, uncomplicated Overweight Spinal stenosis of lumbar region at multiple levels <Tiffany Stoner PA-C - Last Filed: 09/08/22 18:00> Surgical History Surgical History: Surgical History (Updated 09/08/22 @ 12:05 by Tiffany Stoner PA-C) No pertinent past surgical history <Tiffany Stoner PA-C - Last Filed: 09/08/22 18:00> Family History Family History: Family History Father Diabetes mellitus Family history of elevated blood lipids Family history of alcoholism Patient's father is , Onset Age: 59 Mother Family history of glaucoma Carcinoma of colon Family history of lung cancer <Tiffany Stoner PA-C - Last Filed: 09/08/22 18:00> Social History Social History: Social History Smoking packs per day: 1 Smoking cigarettes per day: 20.0 Years smoked: 50 Smoking pack-years: 50.00 Smoking status: Current every day smoker Tobacco type: cigarettes Alcohol intake: never Substance use: never Substance use type: does not use Living arrangements: alone Occupati
[2022-09-08 10:33] LABS: Basophils Absolute Auto 0.1 K/mm3 (0.0-0.1); Basophils Percent Auto 1.4 % (0.2-1.2); Eosinophils Absolute Auto 0.2 K/mm3 (0-0.3); Eosinophils Percent Auto 2.5 % (0-4.4); Hematocrit 45.6 % (37.0-47.0); Immature Granulocyte Absolute 0.02 K/mm3 (0.00-0.031); Immature Granulocyte Percent A 0.3 % (0-0.5); Lymphocytes Absolute Auto 1.27 K/mm3 (0.9-3.2); Lymphocytes Percent Auto 20.2 % (18.3-44.2); Mean Corpuscular HGB Conc 32.9 g/dl (32-36); Mean Corpuscular Hemoglobin 31.3 pg (26-34); Mean Platelet Volume 8.9 fl (7.4-10.4); Monocytes Absolute Auto 0.7 K/mm3 (0.1-0.6); Monocytes Percent Auto 11.3 % (2.6-8.5); Neutrophils Absolute Auto 4.1 K/mm3 (1.3-6.7); Neutrophils Percent Auto 64.3 % (45.5-73.1); Platelet Count Result 262 k/mm3 (150-375); Red Cell Distribution Width 13.6 % (11.5-14.5); White Blood Count 6.3 K/mm3 (4.5-10.0)
--- NOTE | 2022-09-08 11:58 | PC.NURSE ---
Phleb called for redraw of green top d/t multiple rejected specimens and multiple ED staff attempting to draw.
[2022-09-08 12:33] LABS: Alanine Aminotransferase 28 U/L (6-35); Albumin Level 4.8 g/dL (3.5-5.1); Alkaline Phosphatase 88 U/L (38-126); Anion Gap 12 mmol/L (8-16); Aspartate Amino Transferase 42 U/L (14-36); Bilirubin,Total 0.7 mg/dL (0.2-1.3); Blood Urea Nitrogen 12 mg/dL (7-17); Calcium 9.1 mg/dL (8.4-10.2); Carbon Dioxide 22 mmol/L (22-30); Chloride 103 mmol/L (98-107); Estimated CRCL calculation 68 ml/min; Estimated Glomerular Filt Rate > 60; Glucose 97 mg/dL (65-110); Potassium 3.9 mmol/L (3.4-5.0); Sodium 137 mmol/L (137-145)
[2022-09-08 14:32] VITALS: BP 120/77; PULSE 80; RESP 16; TEMP 36.8; O2SAT 100
== END 2022-09-08 14:33 | disposition home or self-care (01) ==
PROVIDERS: Emergency Provider Physician Assistant; PCP Family Medicine
DX: B02.9 Zoster without complications (principal); H66.002 Acute suppurative otitis media without spontaneous rupture of ear drum, left ear; E78.2 Mixed hyperlipidemia; E66.3 Overweight; Z68.27 Body mass index [BMI] 27.0-27.9, adult; F17.210 Nicotine dependence, cigarettes, uncomplicated
CPT/HCPCS: 36415; 70491; 80053; 85025; 99284; Q9967

== ENCOUNTER 2022-10-04 14:02 | Outpatient (CLI) | payer MEDICARE, SELFPAY ==
--- NOTE | ~2022-10-04 | US_ITS ---
EXAMINATION: US arterial ankle brachial ind DATE: 10/04/2022 14:51 INDICATION: Claudication. TECHNIQUE: Segmental pressures and plethysmographic and Doppler waveforms of the brachial and lower e xtremity arteries were obtained. COMPARISON: None. FINDINGS: Right and left brachial artery pressures of 159 mm Hg and 160 mm Hg, respectively, are concordant (no rmal difference <= 30 mmHg). The right ankle-brachial index (REBECA) is 1.0 (normal >= 0.9-1.0). The right great toe-brachial index ( TBI) is 0.94 (normal >= 0.65). Arterial Doppler waveforms are biphasic at the ankle. The left REBECA is 1.09. The left TBI is 0.71. Arterial Doppler waveforms are biphasic at the ankle. IMPRESSION: 1. No significant arterial occlusive disease. Reviewed, dictated and finalized at location A.
== END 2022-10-04 14:03 | disposition home or self-care (01) ==
PROVIDERS: PCP Family Medicine; Visit Provider Family Medicine
DX: M79.604 Pain in right leg (principal); I73.9 Peripheral vascular disease, unspecified
CPT/HCPCS: 93922

== ENCOUNTER 2023-11-14 11:00 | Outpatient (RCR) | payer MEDICARE, SELFPAY ==
--- NOTE | 2023-08-21 16:03 | PTOPEVAL1 ---
Assessment and note entered by Richar Moss, PT Evaluation Information Assessment Status Evaluation Diagnosis Lumbar Radiculopathy, Lumbar stenosis with claudication Onset June 21, 2023 Subjective Information Reports that she was losing strength in her legs prior to surgery. She no longer has severe weakness in her legs, but she has pain in her back when she walks. She will have occasional throbbing in her back. She is noticing more pain with activity. She has been having some shocking feelings in her back when she reaches or walks too far. If she sits too long she also has pain. Mornings are very rough when she first gets up and moving. Reported Pain Level Pain Score 5: Self Report Assessment PT Clinical Summary Patient presenting with poor hip mobility, poor core strength, and poor hip stability with transfer and functional activity. Overall she had a lot of difficulty at this time with bed transfer . Would recommend starting with seated activity until core strength is developed. Will benefit from skilled therapy to improve gross functional and postural strength for intermediate manager recovery. Plan of Care Interventions Aquatic Therapy,Electrical Stimulation,Gait Training,Hot Pack/Cold Pack,Manual Therapy,Neuro Re-education,Therapeutic Activities,Therapeutic Exercise PT Services Indicated Yes Treatment Frequency and 2x/week for 10 visits Duration These treatments will address the objective and functional deficits as defined above. The patient will be advanced safely and appropriately in order for the patient to progress towards his/her prior level of function. Additional exercises will be introduced and as well as a comprehensive home exercise program upon discharge, if needed, ?to ensure carryover of functional gains achieved in the clinic. This treatment plan has been reviewed and agreement upon by the patient.
--- NOTE | 2023-08-21 16:03 | OPREHPOC ---
Outpatient Therapy Plan of Care This is a Multidisciplinary Plan of Care that may contain components documented by all disciplines (PT, OT, and ST.) PT Problem 1 PT Problem #1 Knowledge Deficit PT Goal 1 Goal [place] with HEP Target Visit 4 PT Goal 2 Goal Patient will demonstrate ability to perform log roll transfer with no increased pain supine to sit . Target Visit 8 PT Problem 2 PT Problem #2 Impaired Strength PT Goal 1 Goal Improve tracy hip flexion strength to 4+/5 to improve foot clearance with gait activity Target Visit 10 PT Goal 2 Goal Improve tracy hip abduction strength to 4/5 to improve lateral stability with walking and transfers Target Visit 10 PT Problem 3 PT Problem #3 Impaired Gait PT Goal 1 Goal Patient will ambulate independent of AD for 300' with no increased pain
--- NOTE | 2023-09-21 13:35 | OPREHPOC ---
Outpatient Therapy Plan of Care This is a Multidisciplinary Plan of Care that may contain components documented by all disciplines (PT, OT, and ST.) PT Problem 1 PT Problem #1 Knowledge Deficit PT Goal 1 Goal [place] with HEP Target Visit 4 Progress Met PT Goal 2 Goal Patient will demonstrate ability to perform log roll transfer with no increased pain supine to sit . Target Visit 8 Progress Met PT Problem 2 PT Problem #2 Impaired Strength PT Goal 1 Goal Improve tracy hip flexion strength to 4+/5 to improve foot clearance with gait activity Target Visit 20 Progress Partially Met Comment Improving PT Goal 2 Goal Improve tracy hip abduction strength to 4/5 to improve lateral stability with walking and transfers Target Visit 20 Progress Partially Met Comment Improved but still lacking PT Problem 3 PT Problem #3 Impaired Gait PT Goal 1 Goal Patient will ambulate independent of AD for 300' with no increased pain Target Visit 20 Comment Progressive goal not yet met
--- NOTE | 2023-09-21 13:36 | PTOPPROG ---
Assessment and note entered by Richar Moss, PT Evaluation Information Assessment Status Evaluation Diagnosis Lumbar Radiculopathy, Lumbar stenosis with claudication Onset June 21, 2023 Subjective Information Reports that if she is active she does a little better, but if she stands at the stove and try's to cook she has notably increased pain. She is having a lot of issue with static postural activity. She does feels she is doing better with the supine activity. Assessment PT Clinical Summary Patient has made objective progress at this time. She is very concerned from a subjective standpoint that her progress has been slow. After objective measures she appears to understand that we are seeing improved gross strength and stability improvement with ADLs and walking. 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 Plan of Care Interventions Aquatic Therapy,Electrical Stimulation,Gait Training,Hot Pack/Cold Pack,Manual Therapy,Neuro Re-education,Therapeutic Activities,Therapeutic Exercise PT Services Indicated Yes Treatment Frequency and 2x/week for 10 visits Duration These treatments will address the objective and functional deficits as defined above. The patient will be advanced safely and appropriately in order for the patient to progress towards his/her prior level of function. Additional exercises will be introduced and as well as a comprehensive home exercise program upon discharge, if needed, ?to ensure carryover of functional gains achieved in the clinic. This treatment plan has been reviewed and agreement upon by the patient.
--- NOTE | 2023-10-26 14:40 | OPREHPOC ---
Outpatient Therapy Plan of Care This is a Multidisciplinary Plan of Care that may contain components documented by all disciplines (PT, OT, and ST.) PT Problem 1 PT Problem #1 Knowledge Deficit PT Goal 1 Goal [place] with HEP Target Visit 4 Progress Met PT Goal 2 Goal Patient will demonstrate ability to perform log roll transfer with no increased pain supine to sit . Target Visit 8 Progress Met PT Problem 2 PT Problem #2 Impaired Strength PT Goal 1 Goal Improve tracy hip flexion strength to 4+/5 to improve foot clearance with gait activity Target Visit 28 Progress Partially Met Comment Improving PT Goal 2 Goal Improve tracy hip abduction strength to 4/5 to improve lateral stability with walking and transfers Target Visit 28 Progress Partially Met Comment Improved but still lacking PT Problem 3 PT Problem #3 Impaired Gait PT Goal 1 Goal Patient will ambulate independent of AD for 300' with no increased pain Target Visit 28 Comment Progressive goal not yet met PT Problem 4 PT Problem #4 Pain PT Goal 1 Goal Patient will report no palpable tenderness to left upper rotator cuff complex. Comment New Goal PT Problem 5 PT Problem #5 Impaired Balance PT Goal 1 Goal Improve Tinetti score to 22/28 to reduce fall risk and improve gross mobility/safety Target Visit 28 Comment New Goal
--- NOTE | 2023-10-26 14:40 | PTOPPROG ---
Assessment and note entered by Richar Moss, PT Evaluation Information Assessment Status Progress Diagnosis Lumbar Radiculopathy, Lumbar stenosis with claudication, Left shoulder pain Onset June 21, 2023 Subjective Information Patient reports that she feels she is doing a lot better but is still very weak and unable to strand for more than a couple minutes or sit for more than about 15 minutes without increased pain. Reports that she has been trying to walk more. Followed up with her primary MD today and reported that she was having left shoulder pain posteriorly. He recommended initiating therapy to address it and sent over an order. She would like to continue therapy as she feels it is substantially helping to improve her strength and functional mobility including gait. Assessment PT Clinical Summary Patient has seen improvement in leg strength and function to the point that we were able to initiate Tinetti fall risk scores. She was unable to tolerate standing long enough to qualify for this evaluation prior. Her shoulder pain appears to ne soft tissue in nature as she has very good ROM at this time but very tender musculature in the upper rotator cuff. Jessica will continue to benefit from skilled therapy as she has made substantial progress to this point and shows potential to continue to do so. Plan of Care Interventions Aquatic Therapy,Electrical Stimulation,Gait Training,Hot Pack/Cold Pack,Manual Therapy,Neuro Re-education,Therapeutic Activities,Therapeutic Exercise PT Services Indicated Yes Treatment Frequency and 2x/week for 8 visits. Continue to address balance Duration and strength with addition of shoulder pain on left side as needed. These treatments will address the objective and functional deficits as defined above. The patient will be advanced safely and appropriately in order for the patient to progress towards his/her prior level of function. Additional exercises will be introduced and as well as a comprehensive home exercise program upon discharge, if needed, ?to ensure carryover of functional gains achieved in the clinic. This treatment plan has been reviewed and agreement upon by the patient.
== END 2023-11-19 09:34 | disposition still patient (30) ==
LOC: ANHGOSHPT 11:00
PROVIDERS: PCP Family Medicine
DX: M54.16 Radiculopathy, lumbar region (principal); M48.062 Spinal stenosis, lumbar region with neurogenic claudication
CPT/HCPCS: 97014; 97110; 97112; 97140; 97161; 97530; 97750; G0283

== ENCOUNTER 2024-02-20 10:15 | Outpatient (RCR) | payer MEDICARE, SELFPAY ==
--- NOTE | 2023-11-23 12:20 | OPREHPOC ---
Outpatient Therapy Plan of Care This is a Multidisciplinary Plan of Care that may contain components documented by all disciplines (PT, OT, and ST.) PT Goal 1 Goal Improve tracy hip flexion strength to 4+/5 to improve foot clearence Target Visit 38 Progress Partially Met PT Goal 2 Goal Improve tracy hip abduction strength to 4/5 to improve lateral stability and support with ADL performance Target Visit 38 PT Goal 1 Goal Ambulate for 300' with out increased pain and use of spc Target Visit 38 PT Goal 2 Goal Patient will improve Tinetti score to 22/28 for reduced fall risk and improved mobility Target Visit 38
--- NOTE | 2023-11-23 12:20 | PTOPPROG ---
Assessment and note entered by Richar Moss, PT Evaluation Information Assessment Status Progress Diagnosis Lumbar stenosis with claudication, Leg weakness Onset June 21, 2023 Subjective Information Reports that she has been doing majority of her walking short distance with a cane. Still using walker for long distance. Occasionally gets whatr she calls Zingers in her back which causes her to need to sit and not trust her legs. Overall feels she is progressing but still has weakness and slow getting around. Assessment PT Clinical Summary Patient has seen strength and functionality improvement at this time. Overall she has made functional progress with transition to use of single point cane for majority of ambulation. Still limited by occasional severe jolts of pain which she has learned to work through as advised from physician. Will continue to benefit from skilled therapy to address deficits and improve overall strength, mobility, and quality of life. Plan of Care PT Services Indicated Yes These treatments will address the objective and functional deficits as defined above. The patient will be advanced safely and appropriately in order for the patient to progress towards his/her prior level of function. Additional exercises will be introduced and as well as a comprehensive home exercise program upon discharge, if needed, ?to ensure carryover of functional gains achieved in the clinic. This treatment plan has been reviewed and agreement upon by the patient.
--- NOTE | 2023-12-18 12:49 | PCPTNOTE ---
Patient called to cancel due to having stomach issues.
--- NOTE | 2023-12-26 14:33 | PTOPPROG ---
Assessment and note entered by Sawyer Radford, PT, DPT Evaluation Information Assessment Status Progress Diagnosis Lumbar stenosis with claudication, Leg weakness Onset June 21, 2023 Subjective Information Pt states her therapy progress has been limited to other health issues she has like increased SOB and increased fatigue. She states she has been going to the [facility] once a week. She states she is still getting shocks when she turns a corner but this has become less frequent, she would still rate them as a10/10. Assessment PT Clinical Summary Patient has improved quality and speed of her gait , has also improved her Tinette score to where she is now in a low risk category. Overall she is making functional progress. She continues to get shocks of pain in her back and still has decreased core strength. Will continue to benefit from skilled therapy to address deficits and improve overall strength, mobility, and quality of life. Plan of Care Interventions Electrical Stimulation,Gait Training,Manual Therapy,Neuro Re-education,Patient/Caregiver Educati,Therapeutic Activities,Therapeutic Exercise PT Services Indicated Yes Treatment Frequency and 2x/wk for 8 visits Duration These treatments will address the objective and functional deficits as defined above. The patient will be advanced safely and appropriately in order for the patient to progress towards his/her prior level of function. Additional exercises will be introduced and as well as a comprehensive home exercise program upon discharge, if needed, ?to ensure carryover of functional gains achieved in the clinic. This treatment plan has been reviewed and agreement upon by the patient.
--- NOTE | 2024-01-23 10:00 | PCPTNOTE ---
Patient was canceled 01/18/24 due to therapist out with illness.
--- NOTE | 2024-01-28 11:56 | PTOPPROG ---
Assessment and note entered by Sawyer Radford, PT, DPT Evaluation Information Assessment Status Progress Diagnosis Lumbar stenosis with claudication, Leg weakness ICD-10 Condition Codes (PT) Pain in low back M54.50,Difficulty Walking R26.2, R26.9 Onset June 21, 2023 Subjective Information Pt states overall she is frustrated by her progress. She states she still cannot stand for any length of time without getting shocks in her back. She is up to walking 3/4 of a mile without a device. She states at home, it is hard to do her day to day tasks, cooking, cleaning, laundry, any thing that uses her arms and causes rotation, without an increase in pain. Cannot sit for more than an hour without an increase in pain to where she has extra pain for a while until she is loosened up again. She states the shocks have decreased in intensity and frequency but still occur. Assessment PT Clinical Summary Patient has completed 42 visits of skilled therapy . She reports improved pain reports and progressing exercise tolerance in the last month. She continues to have limited standing tolerance and poor tolerance with any type of weight shift or trunk motion. She continues to have debilitating shocks of pain in her back. Will continue to benefit from skilled therapy to address deficits and improve overall strength, mobility, and quality of life. Plan of Care Interventions Electrical Stimulation,Gait Training,Manual Therapy,Neuro Re-education,Patient/Caregiver Educati,Therapeutic Activities,Therapeutic Exercise PT Services Indicated Yes Treatment Frequency and 1x/wk for 6 visits Duration These treatments will address the objective and functional deficits as defined above. The patient will be advanced safely and appropriately in order for the patient to progress towards his/her prior level of function. Additional exercises will be introduced and as well as a comprehensive home exercise program upon discharge, if needed, ?to ensure carryover of functional gains achieved in the clinic. This treatment plan has been reviewed and agreement upon by the patient.
== END 2024-02-21 23:59 | disposition home or self-care (01) ==
LOC: ANHGOSHPT 10:15
PROVIDERS: PCP Family Medicine
DX: M54.16 Radiculopathy, lumbar region (principal); M48.062 Spinal stenosis, lumbar region with neurogenic claudication
CPT/HCPCS: 97014; 97110; 97112; 97530; G0283

== ENCOUNTER 2024-03-12 10:15 | Outpatient (RCR) | payer MEDICARE, SELFPAY ==
--- NOTE | 2024-03-12 11:16 | PTOPDC ---
Assessment and note entered by Sawyer Radford, PT, DPT Evaluation Information Assessment Status Discharge Diagnosis Lumbar stenosis with claudication, Leg weakness ICD-10 Condition Codes (PT) Difficulty Walking R26.2,R26.9,Pain in low back M54.50 Onset June 21, 2023 Subjective Information Pt states her surgeon placed her on a new medication for nerve pain which seems to be helping. She states at home she has been able to walk without a device but she still uses a walker when walking long distances out in the community. She states she climbs up the bleachers to watch her grandson play soccer. She goes to the [facility] to walk 1-2 times a week. She states her pain can still get high, up to a 7/10 but she has low pain rating much more to the time. Reported Pain Level Pain Score 0: Self Report Assessment PT Clinical Summary Patient has completed 48 visits of skilled therapy . She continues to report improved pain levels and progressing exercise tolerance. She continues to have limited standing tolerance but this continues to progress. Pt reports good understanding and compliance with her HEP. Pt plans to continue working on her exercises at home. She will be d/c' ed at this time. Plan of Care PT Services Indicated No
== END 2024-03-12 11:52 | disposition home or self-care (01) ==
LOC: ANHGOSHPT 10:15
PROVIDERS: PCP Family Medicine
DX: M54.16 Radiculopathy, lumbar region (principal); M48.062 Spinal stenosis, lumbar region with neurogenic claudication; S46.912A Strain of unspecified muscle, fascia and tendon at shoulder and upper arm level, left arm, initial encounter
CPT/HCPCS: 97014; 97110; 97530; G0283

== ENCOUNTER 2024-04-30 10:29 | Outpatient (CLI) | payer MEDICARE, SELFPAY ==
--- NOTE | ~2024-04-30 | MR_ITS ---
EXAMINATION: MR cervical spine wo con DATE: 04/30/2024 11:06 INDICATION: Neck pain. Cervical spinal stenosis. TECHNIQUE: Magnetic resonance imaging (MRI) of the cervical spine was performed without intravenous c ontrast. Sequences included sagittal T2-weighted FSE, sagittal T2-weighted FS FSE, sagittal T1-weight ed FSE, axial MERGE and axial T2-weighted FSE. COMPARISON: Neck CT dated 09/08/2022 FINDINGS: Slight reversal of the normal lordosis in the lower cervical spine. Vertebral body heights are normal . Severe disc height loss at C5-C6 and C6-C7. Moderate disc height loss at C4-C5 and T3-T4. Mild disc height loss at C3-C4 and C7-T1 through T2-T3. Mild fibrovascular degenerative endplate changes anter iorly at C5-C6. Marrow signal is otherwise normal. Cord signal intensity is normal. Visualized cervic al soft tissues are unremarkable. The following disc levels are specifically discussed: C2-C3: The disc does not extend beyond the endplate margin. There is no uncovertebral joint osteoarth ritis. There is mild bilateral facet joint osteoarthritis. There is mild right neural foraminal steno sis. There is no central canal stenosis. C3-C4: Very small central disc protrusion with annular fissure. There is mild bilateral uncovertebral joint osteoarthritis. There is moderate right and severe left facet joint osteoarthritis. There is m ild right and mild to moderate left neural foraminal stenosis. There is no central canal stenosis. C4-C5: Disc is mildly bulging with annular fissure. There is mild right and moderate left uncovertebr al joint osteoarthritis. There is mild bilateral facet joint osteoarthritis. There is mild bilateral neural foraminal stenosis. There is mild central canal stenosis. C5-C6: Posterior disc osteophyte complex with annular fissure and small central disc extrusion with d isc material extending 6 mm caudal to the level of the superior endplate of C6. There is severe bilat eral uncovertebral joint osteoarthritis. There is mild bilateral facet joint osteoarthritis. There is mild right and moderate left neural foraminal stenosis. There is mild central canal stenosis with in dentation of the central and left ventral surface of the cord. C6-C7: Disc is bulging with superimposed annular fissure and right paracentral disc protrusion. There is moderate bilateral, left greater than right, uncovertebral joint osteoarthritis. There is mild ri ght and moderate left facet joint osteoarthritis. There is moderate bilateral neural foraminal stenos is. There is mild central canal stenosis with mild indents the right ventral surface of the cord. C7-T1: Small left paracentral disc protrusion. There is no uncovertebral joint osteoarthritis. There is bilateral facet joint osteoarthritis. There is mild left neural foraminal stenosis. There is mild central canal stenosis. IMPRESSION: 1. Severe lower cervical spondylosis. Reviewed, dictated and finalized at location A. [employer]GER
== END 2024-04-30 10:30 | disposition home or self-care (01) ==
PROVIDERS: PCP Nurse Practitioner Family; Visit Provider Nurse Practitioner Family
DX: M48.02 Spinal stenosis, cervical region (principal); M43.02 Spondylolysis, cervical region
CPT/HCPCS: 72141

== ENCOUNTER 2024-08-21 10:15 | Outpatient (RCR) | payer MEDICARE, SELFPAY ==
--- NOTE | 2024-07-22 13:24 | OPREHPOC ---
Outpatient Therapy Plan of Care This is a Multidisciplinary Plan of Care that may contain components documented by all disciplines (PT, OT, and ST.) PT Problem 1 PT Problem #1 Knowledge Deficit PT Goal 1 Goal / Goal Update 1. Pt to be IND with issued HEP Target Visit 10 PT Problem 2 PT Problem #2 Pain PT Goal 1 Goal / Goal Update 1. Pt to report R shoulder pain no greater than 3/ 10 in the last week. 2. Pt to report no greater than 10% disability on the quickDash. Target Visit 10 PT Problem 3 PT Problem #3 Impaired Range of Motion PT Goal 1 Goal / Goal Update 1. Pt to improve active shoulder flexion and abduction to 150 deg Target Visit 10 PT Problem 4 PT Problem #4 Impaired Strength PT Goal 1 Goal / Goal Update 1. Pt to improve R shoulder strength to 4/5 2. Pt to be able to lift 5lb overhead without an increase in pain. Target Visit 10
--- NOTE | 2024-07-22 13:25 | PTOPEVAL1 ---
Assessment and note entered by Sawyer Radford, PT, DPT Evaluation Information Assessment Status Evaluation Diagnosis R shoulder pain ICD-10 Condition Codes (PT) Pain in right shoulder M25.511 Subjective Information Pt reports R shoulder pain, states last year in October she was having 8/10 pain in the shoulder, then the pain went away. Started in March again, states it was a 10/10 pain, so bad it sent her to the ER. States this is the same pain she has had since March. States she cannot do anything with her arm without causing a flair up. States she is avoiding using her arm at all cost. Has had 2 rounds of steroids packs to manage pain. States at times she cannot sleep or function d/t shoulder pain. Also reports numbness and cramping in both of her hands. States she has multiple other health concerns at this time. Reported Pain Level Pain Score 5: Self Report Assessment PT Clinical Summary Pt presents to therapy today for her initial evaluation with a diagnosis of R shoulder pain. Today she demonstrates decreased active shoulder ROM and strength d/t high reports of pain, when compared to her L shoulder. She reports decreased functional mobility and fear avoidance behaviors. She has equal ROM when measured passively. There is point tenderness and increased soft tissue density throughout her R biceps region. Skilled therapy services are indicated to improve ROM and strength, to limit pain reports, and to return to PLOF. Plan of Care Interventions Electrical Stimulation,Hot Pack/Cold Pack,Manual Therapy,Neuro Re-education,Patient/Caregiver Education,Therapeutic Activities,Therapeutic Exercise PT Services Indicated Yes Treatment Frequency and 2x/wk for 10 visits Duration These treatments will address the objective and functional deficits as defined above. The patient will be advanced safely and appropriately in order for the patient to progress towards his/her prior level of function. Additional exercises will be introduced and as well as a comprehensive home exercise program upon discharge, if needed, ?to ensure carryover of functional gains achieved in the clinic. This treatment plan has been reviewed and agreement upon by the patient.
--- NOTE | 2024-08-21 11:09 | OPREHPOC ---
Outpatient Therapy Plan of Care This is a Multidisciplinary Plan of Care that may contain components documented by all disciplines (PT, OT, and ST.) PT Problem 1 PT Problem #1 Knowledge Deficit PT Goal 1 Goal / Goal Update 1. Pt to be IND with issued HEP 08/21/24: 1.met Target Visit 10 PT Problem 2 PT Problem #2 Pain PT Goal 1 Goal / Goal Update 1. Pt to report R shoulder pain no greater than 3/ 10 in the last week. 2. Pt to report no greater than 10% disability on the quickDash. 08/21/24: 1. not met 2. progressing, 25% Target Visit 10 PT Problem 3 PT Problem #3 Impaired Range of Motion PT Goal 1 Goal / Goal Update 1. Pt to improve active shoulder flexion and abduction to 150 deg 08/21/24: 1. not met Target Visit 10 PT Problem 4 PT Problem #4 Impaired Strength PT Goal 1 Goal / Goal Update 1. Pt to improve R shoulder strength to 4/5 2. Pt to be able to lift 5lb overhead without an increase in pain. 08/21/24: 1-2. not met Target Visit 10
--- NOTE | 2024-08-21 11:09 | PTOPPROG ---
Assessment and note entered by Sawyer Radford, PT, DPT Evaluation Information Assessment Status Progress Diagnosis R shoulder pain ICD-10 Condition Codes (PT) Pain in right shoulder M25.511 Subjective Information Pt states she feels like her pain has decreased, but only because she is using it less to avoid the pain. She states her sleeping has improved, but is still not able to sleep on her R side. States her hands are not cramping like they were before, but are still tingling when she is gripping something. Pt states she is getting a lot of pain after therapy, sometimes a day other times 2 days. She states she is getting tested for progressive weakness in all 4 of her limbs. Assessment PT Clinical Summary Pt presents to therapy today for her progress report following 10 visits of skilled therapy to treat her diagnosis of R shoulder pain. Today she continues to demonstrates decreased active shoulder ROM and strength d/t high reports of pain . Performing exercises without substitutions requires lots of cues d/t fear avoidance behaviors . It is recommended that she follow up with her PCP to discuss getting an injection. Continuation of skilled therapy services are indicated to improve ROM and strength, to limit pain reports, and to return to PLOF. Plan of Care Interventions Electrical Stimulation,Hot Pack/Cold Pack,Manual Therapy,Neuro Re-education,Patient/Caregiver Education,Therapeutic Activities,Therapeutic Exercise PT Services Indicated Yes Treatment Frequency and 2x/wk for 8 visits, after cortisone injection Duration These treatments will address the objective and functional deficits as defined above. The patient will be advanced safely and appropriately in order for the patient to progress towards his/her prior level of function. Additional exercises will be introduced and as well as a comprehensive home exercise program upon discharge, if needed, ?to ensure carryover of functional gains achieved in the clinic. This treatment plan has been reviewed and agreement upon by the patient.
--- NOTE | 2024-10-07 08:43 | PTOPDC ---
Assessment and note entered by Richar Moss, PT Evaluation Information Assessment Status Discharge - Pt Not Present Diagnosis R shoulder pain ICD-10 Condition Codes (PT) Pain in right shoulder M25.511 Subjective Information Patient contacted clinic stating that she will be moving forward with an MRI and anticipates needing surgery. Requests discharge from therapy at this time. Assessment PT Clinical Summary Patient to be discharged from skilled therapy at this time per request. Please refer to last progress note for discharge status. Patient last present for therapy 08/29/24. Plan of Care PT Services Indicated Yes
== END 2024-10-07 10:26 | disposition home or self-care (01) ==
LOC: ANHGOSHPT 10:15
PROVIDERS: PCP Nurse Practitioner Family; Visit Provider Family Medicine Sports Medicine
DX: M75.41 Impingement syndrome of right shoulder (principal); M19.011 Primary osteoarthritis, right shoulder
CPT/HCPCS: 97110; 97140; 97161

== ENCOUNTER 2024-10-23 15:24 | Outpatient (CLI) | payer MEDICARE, SELFPAY ==
--- NOTE | ~2024-10-23 | MM_ITS ---
EXAMINATION: MM screening audie BI w jeremias HISTORY: Screening TECHNIQUE: Craniocaudal and mediolateral oblique 3-D tomosynthesis images were obtained and synthetic 2-D images were generated. CAD analysis was submitted and interpreted. COMPARISON: Comparison to multiple prior studies sequentially, with oldest reviewed study dated 02/13. BREAST PARENCHYMAL COMPOSITION: Not dense: There are scattered areas of fibroglandular density. FINDINGS: There is no evidence of suspicious mass, calcification, or architectural distortion to sugg est malignancy in either breast. There has been no suspicious interval change. IMPRESSION: 1. No mammographic evidence of malignancy. 2. Recommend routine screening mammography in one year. BI-RADS Category 1: Negative Reviewed, dictated and finalized at location B.
--- OUTSIDE RECORDS SUMMARY | 2024-10-23 15:29 | XMS_ITS | Encounter Summary ---
Author Organization [facility] Healthcare Address [address] [place] [address] Care Team Providers Care Supervisor Nutritional Yeast Name Role Phone Aria Flores NP Primary Care Provider [phone] Raphael Kirkland MD Unavailable Emerita Amado MD Unavailable Zuly Laguerre MD Unavailable [phone] Reason for Referral * Neurology (Routine) - Closed Specialty Diagnoses / Procedures Referred By Marco vargas Referred To Contact Diagnoses Cramping of hands Bilateral hand pain Numbness and tingling in both hands Procedures EMG/NCV - Aria Flores NP [address] [facility] [[email or web address] [address] [place] [address] Phone: tel: fax: [address] [phone] Referral ID Status Reason Start Date Expiration Date Visits Re quested Visits Authorized [id number] Closed 07/23/2024 08/22/2025 1 1 Reason for Visit * Neurology (Routine) - Closed Specialty Diagnoses / Procedures Referred By Marco vargas Referred To Contact Diagnoses Cramping of hands Bilateral hand pain Numbness and tingling in both hands Procedures EMG/NCV - Aria Flores NP [address] [facility] [place] [address] [place] [address] Phone: tel: fax: [facility] [address] [place] [address] Referral ID Status Reason Start Date Expiration Date Visits Re quested Visits Authorized [id number] Closed 07/23/2024 08/22/2025 1 1 Encounter Details Date Type Department Care Team (Latest Contact Info) Description 10/22/2024 12:39 PM CDT - 10/22/2024 11:59 PM CDT Hospital Encounter [facility] Neurological Disorders Testing [address] [place] [address] Cramping of hands; Bilateral hand pain; Numbness and tingling in both hands Discharge Disposition: Discharge to home or self care Social History Tobacco Use Types Packs/Day Years Used Date Smoking Tobacco: Former Cigarettes 0.8 52.6 0 1970 - 02/16/2023 Passive Smoke Exposure: Past Smokeless Tobacco: Never [facility] quitchen Answer Date Recorded In the past 12 months has [employer], gas, oil, or water [employer] threatened to shut off services in your home? No 09/02/2024 Social Connection and Isolation Panel [NHANES] A nswer Date Recorded In a typical week, how many times do you talk on the phone with family, friends, or neighbors? Twice a week 09/03/19 How often do you get togethe r with friends or relatives? Twice a week 09/02/2024 How often do you attend [facility] or evangelical services? 1 to 4 times per year 09/02/2024 Do you belong to any clubs o r organizations such as orthodox groups, unions, fraternal or athletic groups, or school groups? Yes 09/02/2024 How often do you attend meet ings of the clubs or organizations you belong to? 1 to 4 times per year 09/02/2024 Are you , , di vorced, , never , or living with a partner? 09/02/2024 AUDIT-C Answer Date Recorded Q1: How often do you have a drink containing alcohol? Never 05/19/2024 Q2: How many drinks containi ng alcohol do you have on a typical day when you are drinking? Patient does not drink Q3: How often do you have si x or more drinks on one occasion? Never 05/19/2024 Overall Financial Resource Strain (CARDIA) Answe r Date Recorded How hard is it for you to pa y for the very basics like food, housing, medical care, and heating? Not hard at all 09/02/2024 PHQ-2 Answer Date Recorded PHQ-2 Total Score (If total score is 3 or more points, staff should administer the PHQ-9) 2 09/03/2024 Hunger Vital Sign Answer Date Recorded Within the past 12 months, y ou worried that your food would run out before you got the money to buy more. Never true 09/03/19 Within the past 12 months, t he food you bought just didn't last and you didn't have money to get more. Never true 09/02/2024 PRAPARE - Transportation Answer Date Re corded In the past 12 months, has l ack of transportation kept you from medical appointments or from getting medications? No 06/2024 In the past 12 months, has l ack of transportation kept you from meetings, work, or from getting things needed for daily living? No 09/02/2024 PHQ-9 Answer Date Recorded PHQ-9 Total Score 13 04/22/2024 Housing Stability Vital Sign Answer Luisito e Recorded In the last 12 months, was t here a time when you were not able to pay the mortgage or rent on time? No 09/02/2024 In the past 12 months, how m any times have you moved where you were living? 0 09/02/2024 At any time in the past 12 m [facility], were you homeless or living in a mcc (including now)? No 09/02/2024 Personal Safety Answer Date Recorded Have you ever been in or are you currently in a harmful physical or emotional relationship or is someone making you feel afraid or unsafe? Denies 08/26/2024 Comments No Sex and Gender Information Value Date Recorded Sex Assigned at Not on file Legal Sex Female 11:40 AM SUTURE WINDER HAND Gender Identity Female 03/03/2024 7:19 AM CDT Sexual Orientation Not on file documented as of this encounter Medications at Time of Discharge acetaminophen (TYLENOL) 500 mg tabletIndication s:Pain Take 1 tablet (500 mg total) by mouth every 6 (six) hours as needed for pain Pt states she takes 3 tablets at night for pain as needed amLODIPine (NORVASC) 5 mg tabletIndication s:hypertension Take 1 tablet (5 mg total) by mouth every morning 90 tablet 1 06/25/2024 aspirin (Enteric Coated Aspirin) 81 mg enteric coated tablet Take 1 tablet (81 mg total) by mouth daily 90 tablet 3 03/20/2024 5 cetirizine (ZyrTEC) 10 mg tabletIndication s:Seasonal Allergic Rhinitis Take 1 tablet (10 mg total) by mouth every morning dicyclomine (BENTYL) 10 mg capsule Take 1 capsule (10 mg total) by mouth 4 (four) times a day before meals and nightly esomeprazole DR (NexIUM 24HR) 20 mg capsule Take 1 capsule (20 mg total) by mouth daily before breakfast fluvastatin (LESCOL) 40 mg capsule Take 1 capsule (40 mg total) by mouth nightly Can hold on starting until August capsule 3 07/15/2024 6 hydrALAZINE (APRESOLINE) 50 mg tabletIndication s:hypertension Take 1 tablet (50 mg total) by mouth 2 (two) times a day 180 tablet 1 06/25/2024 PreviDent 5000 Booster Plus 1.1 % pasteIndications :Dental Plaque Prevention Take 1 Application by mouth 2 (two) times a day 12/27/2022 Vitamin D3 50 mcg (2,000 unit) capsule Take 1 capsule (2,000 Units total) by mouth daily 100 capsule 3 02/19/2024 documented as of this encounter Discharge Disposition Disposition Code Departure Means Destination Discharge to home or self care documented in this encounter Plan of Treatment Upcoming Encounters Date Type Department Care Team (Late st Contact Info) Description 08/31/2025 8:25 AM CDT Hospital Encounter [address] [address] Zuly Laguerre MD [address] [facility] [address] [address] 08/31/2025 8:25 AM CDT - 08/31/2025 8:55 AM CDT Surgery [address] [address] Zuly Laguerre MD [address] [facility] [address] [place] [address] [place] [id number] COLONOSCOPY Pending Results Name Type Priority Associated Diagnoses Date /Time EMG/NCV - Neurology Routine Cramping of hands Bilateral hand pain Numbness and tingling in both hands 10/22/2024 3:32 PM CDT Scheduled Orders Name Type Priority Associated Diagnoses Orde r Schedule EMG/NCV - Neurology Routine Cramping of hands Bilateral hand pain Numbness and tingling in both hands Once for 1 Occurrences starting 10/22/2024 until 10/22/2024 Scheduled Procedures Name Priority Associated Diagnoses Date/Ti me COLONOSCOPY History of colonic polyps Diverticulosis 08/31/2025 8:25 AM CDT documented as of this encounter Visit Diagnoses Diagnosis History of colonic polyps- Primary Personal history of colonic polyps Diverticulosis Diverticulosis of colon (without mention of hemorrhage) Cramping of hands Cramp of limb Bilateral hand pain Numbness and tingling in both hands History of colonic polyps Personal history of colonic polyps Diverticulosis Diverticulosis of colon (without mention of hemorrhage) documented in this encounter Care Teams Supervisor Nutritional Yeast Relationship Specialty Start Date End Date Aria Flores NP PCP - General Family Medicine 01/24/24 Raphael Kirkland MD [address] [facility] [address] [place] [address] [place] [address] Consulting Physician Vascular Surgery 04/17/24 Emerita Amado MD [address] [place] [address] Consulting Physician Interventional Cardiology 05/05/24 Zuly Laguerre MD [address] [place] [address] [address] [place] [address] [place] [id number] Consulting Physician Gastroenterology 08/31/24 documented as of this encounter
--- OUTSIDE RECORDS SUMMARY | 2024-10-23 15:29 | XMS_ITS | Encounter Summary ---
Author Organization [facility] Healthcare Address [address] [place] [address] Care Team Providers Care Human Performance Consultant Name Role Phone Aria Flores NP Primary Care Provider Raphael Kirkland MD Unavailable Emerita Amado MD Unavailable Zuly Laguerre MD Unavailable [phone] Monique Lundy RN Unavailable [phone] Reason for Visit * Reason Onset Date Comments Diarrhea 08/25/2024 Encounter Details Date Type Department Care Team (Late st Contact Info) Description 08/25/2024 Nurse Triage [facility] Medical Group Primary Care at [address] [address] Aria Flores NP [address] [place] [address] [address] [place] [address] Social History Tobacco Use Types Packs/Day Years Used Date Smoking Tobacco: Former Cigarettes 0.8 52.6 0 1970 - 02/16/2023 Passive Smoke Exposure: Past Smokeless Tobacco: Never [facility] Utilities Answer Date Recorded In the past 12 months has [employer] electric, gas, oil, or water company threatened to shut off services in your home? No 08/27/2024 Social Connection and Isolat ion Panel [NHANES] Answer Date Recorded In a typical week, how many times do you talk on the phone with family, friends, or neighbors? More than three times a week 08/27/2024 How often do you get togethe r with friends or relatives? Once a week 08/27/2024 How often do you attend chur ch or druze services? Never 08/27/2024 Do you belong to any clubs o r organizations such as hoahaoism groups, unions, fraternal or athletic groups, or school groups? Yes 08/27/2024 How often do you attend meet ings of the clubs or organizations you belong to? More than 4 times per year 08/27/2024 Are you , , di vorced, , never , or living with a partner? 08/27/2024 AUDIT-C Answer Date Recorded Q1: How often [...] care, and heating? Not hard at all 08/27/2024 PHQ-2 Answer Date Recorded PHQ-2 Total Score (If total score is 3 or more points, staff should administer the PHQ-9) 3 04/22/2024 Hunger Vital Sign Answer Date Recorded Within the past 12 months, y ou worried that your food would run out before you got the money to buy more. Never true 08/28/19 25 Within the past 12 months, t he food you bought just didn't last and you didn't have money to get more. Never true 08/27/2024 PRAPARE - Transportation Answer Date Re corded In the past 12 months, has l ack of transportation kept you from medical appointments or from getting medications? No 08/03 In the past 12 months, has l ack of transportation kept you from meetings, work, or from getting things needed for daily living? No 08/27/2024 PHQ-9 Answer Date Recorded PHQ-9 Total Score 13 04/22/2024 Housing Stability Vital Sign Answer Luisito e Recorded In the last 12 months, was t here a time when you were not able to pay the mortgage or rent on time? No 08/27/2024 In the past 12 months, how m any times have you moved where you were living? 0 08/27/2024 At any time in the past 12 m [facility], were you homeless or living in a group home (including now)? No 08/27/2024 Personal Safety Answer Date Recorded Have you ever been in or are you currently in a harmful physical or emotional relationship or is someone making you feel afraid or unsafe? Denies 08/26/2024 Comments No Sex and Gender Information Value Date Recorded Sex Assigned at Not on file Legal Sex Female 11:40 AM LABOR TRAINER Gender Identity Female 03/03/2024 7:19 AM CDT Sexual Orientation Not on file documented as of this encounter Miscellaneous Notes * Telephone Encounter - Jewell Solares MA - 08/26/2024 4:57 PM CDT Called patient to check in. She ended up going to the [facility]. Feels really dehydrated and they are checking for a bacterial infection in her colon * Telephone Encounter - Aria Flores NP - 08/26/2024 12:15 PM CDT Noted. If she thinks she's getting dehydraydated then she needs to go to ER. Symptoms of stomach flu can last 4-7 days * Telephone Encounter - Jose Vincent - 08/26/2024 10:25 AM CDT Call Back Caller???s Concern: Patient called to provide an update. Patient immediately has cramping and diarrhea after eating or drinking anything. The diarrhea is clear and bubbly. The Pedialyte makes her stomach cramp. The Imodium is not helping at all. Still has a low grade fever of 100 degrees at night, but no fever during the day. Patient stated she has only eaten two Crackers, a 1/2 bananna, one scrambled egg and a piece of dry toast over the last few days. Does message need to be routed? Yes-Action Needed * Telephone Encounter - Aria Flores NP - 08/25/2024 1:45 PM CDT Continue immodium, increase fluid intake and rest. We have had a few cases of stomach flu/ diarrheaillness with stomach pain. Unlikely abx with fever present. More like the current virus going around. She can also use oral rehydration solutions such as pedialyte, liquid IV, or sugar free sports drinks. Watch for signs/ symptoms of worsening condition: Gastroenteritis alarm symptoms and signs Volume depletion/dehydration: ??Dry mucous membranes (dry mouth) ??Decreased skin turgor ??Increased thirst ??Altered mental status (confusion, lethargy) ??Dizziness, lightheadedness ??Headache ??Tachycardia, palpitations ??Hypotension, orthostasis ??Presyncope or syncope ??Weakness, fatigue ??Decreased urine output, concentrated urine (deep yellow or amisha color) Bloody stool/rectal bleeding Weight loss Severe abdominal pain Prolonged symptoms (more than a week) Recent hospitalization or antibiotics * Telephone Encounter - Mary Knight RN - 08/25/2024 10:44 AM CDT Delmy Mchugh calls into belt operator with c/o diarrhea that started late Sunday afternoon (7 or more times per day). She is also experiencing stomach cramps, fatigue, and chills. Highest temp has been 100.1. Pepto and imodium have not provided relief. She is also currently on day 6 of 7 of abxfor a tooth infection. Unsure if she has stomach flu or if this is s/e. Patient unable to come in to be seen. RN routing to clinical pool. Patient advised to drink plenty of fluids, eat bland diet, and to call back with any new/worsening sx or further concerns. FYI Patient would like advice. Unable to be seen due to current sx. Please advise. Reason for Disposition SEVERE diarrhea (e.g., 7 or more times / day more than normal) and present > 24 hours (1 day) Protocols used: [id number]-DS * Telephone Encounter - Mary Knight RN - 08/25/2024 10:38 AM CDT Regarding: diarrhea low grade temp, very fatigued ----- Message from Brooke Howe sent at 08/25/2024 8:48 AM CDT ----- Symptom Based Call Chief Complaint(s): diarrhea low grade temp, very fatigued Duration: about a week What type of symptom(s) is the patient experiencing? Non-Emergent. Is this a new or reoccurring symptom(s)? New What have you tried to help your symptom(s)? She has taken pepto bismol and imodium. Why was appointment not scheduled? Requesting advice from clinical steam fitter helper. Additional Comments: Patient says she has had diarrhea all weekend and still this morning. She alsohas a low grade temp, and is very fatigued. She is on an antibiotic for a tooth infection. She justfeels like she may have stomach flu. Please advise and thank you so much. Does message need to be routed? Yes-Action Needed documented in this encounter Plan of Treatment Upcoming Encounters Date Type Department Care Team (Late st Contact Info) Description 08/31/2025 8:25 AM CDT Hospital Encounter [address] [address] Zuly Laguerre MD [address] [place] [address] [address] 08/31/2025 8:25 AM CDT - 08/31/2025 8:55 AM CDT Surgery [address] [address] Zuly Laguerre MD [address] [place] [address] [address] [place] [address] COLONOSCOPY Scheduled Procedures Name Priority Associated Diagnoses Date/Ti me COLONOSCOPY History of colonic polyps Diverticulosis 08/31/2025 8:25 AM CDT documented as of this encounter Visit Diagnoses Not on filedocumented in this encounter Additional Health Concerns Infection Onset Date Last Indicated Resolved Time COVID: Suspected 08/26/2024 08/26/2024 08/26/2024 1:36 PM CDT C. difficile suspected 08/26/2024 08/26/202408/27 12:32 AM CDT documented as of this encounter Care Teams Human Performance Consultant Relationship Specialty Start Date End Date Aria Flores NP PCP - General Family Medicine 01/24/24 Raphael Kirkland MD [address] [facility] [address] [place] [address] Consulting Physician Vascular Surgery 04/17/24 Emerita Amado MD [address] [address] Consulting Physician Interventional Cardiology 05/05/24 Zuly Laguerre MD [address] [place] [address] [address] [place] [address] Consulting Physician Gastroenterology 08/31/24 Monique Lundy, JANES [address] [place] [address] [address] [place] [address] Phlebotomist Associate 09/02/24 10/09/24 documented as of this encounter
--- OUTSIDE RECORDS SUMMARY | 2024-10-23 15:29 | XMS_ITS | Clinical Summary ---
Author Organization [facility] Address [address] [place] [address] Phone Care Team Providers Care Glove Cuffer Name Role Phone Levon Finn MD Primary Care Provider [phone] Medications No known medications Social History Tobacco Use Types Packs/Day Years Used Date Smoking Tobacco: Never Assessed Comments No Sex and Gender Information Value Date Recorded Sex Assigned at Not on file Legal Sex Female 4:41 PM CDT Gender Identity Not on file Sexual Orientation Not on file Last Filed Vital Signs Vital Sign Reading Time Taken Comments Blood Pressure 130/53 05/26/2023 1:15 PM PAPER CONSERVATOR Pulse 95 05/26/2023 1:30 PM PAPER CONSERVATOR Temperature 36.8 C (98.2 F) 05/26/2023 11:24 AM PAPER CONSERVATOR Respiratory Rate 17 05/26/2023 11:24 AM PAPER CONSERVATOR Oxygen Saturation 98% 05/26/2023 1:30 PM PAPER CONSERVATOR Inhaled Oxygen Concentration - - Weight 74.8 kg (165 lb) 05/26/2023 11:24 AM PAPER CONSERVATOR Height 162.6 cm (5' 4 ) 05/26/2023 11:24 AM PAPER CONSERVATOR Body Mass Index 28.32 05/26/2023 11:24 AM PAPER CONSERVATOR Plan of Treatment Health Maintenance Due Date Last Done Comments DEXA Bone Density 1950 Hepatitis C Virus (HCV) Screening 1950 TdaP Immunization 1950 Pneumococcal Immunization (50+ years) (1 of 1 - PCV) 1998 Zoster Immunization (1 of 2) 1998 Respiratory Syncytial Virus (RSV) Immunization (Adult) (1 - 1-dose 75+ series) 2023 Influenza Immunization (#1) 2024 SARS-COV-2 Immunization ( season) 2024 11/22/2021, 03/21/2021, 08/16/2020, Additional history exists Hepatitis B Immunization Aged Out No longer eligible based on patient's age to complete this topic Meningococcal Immunization (ACWY) Aged Out No longer eligible based on patient's age to complete this topic Rotavirus Immunization Aged Out No lo nger eligible based on patient's age to complete this topic Insurance MEDICARE C [facility] Care Teams Glove Cuffer Relationship Specialty Start Date End Date Levon Finn MD [facility] [place] [address] PCP - General Pest Control Specialist 03/02/22
--- OUTSIDE RECORDS SUMMARY | 2024-10-23 15:29 | XMS_ITS | CONTINUITY OF CARE DOCUMENT ---
Author Name magali de los santos Address Unknown Organization [facility] Office Address [address] [place] [address] [address] [place] [address] Phone [phone] Care Team Providers Care Homeland Security Program Specialist Name Role Phone Nicolás Julian MD Unavailable Nicolás Julian MD Unavailable INSURANCE PROVIDERS Payer name Policy type / Coverage type [place] [employer] party ID AETNA [facility] MMAI do not use Medicare [id number]
--- OUTSIDE RECORDS SUMMARY | 2024-10-23 15:29 | XMS_ITS | Encounter Summary ---
Author Organization [facility] Healthcare Address [address] [place] [address] Care Team Providers Care Underground Mine Machinery Mechanic Name Role Phone Aria Flores NP Primary Care Provider [phone] Raphael Kirkland MD Unavailable Emerita Amado MD Unavailable Zuly Laguerre MD Unavailable [phone] Monique Lundy RN Unavailable [phone] Encounter Details Date Type Department Care Team (Late st Contact Info) Description 10/08/2024 Results Follow-Up [facility] Medical Group Primary Care at [address] [address] Aria Flores NP [address] [place] [address] [address] [place] [address] CBC with auto differential, Iron profile w/ IBC, Differential, auto Social History Tobacco Use Types Packs/Day Years Used Date Smoking Tobacco: Former Cigarettes 0.8 52.6 0 1970 - 02/16/2023 Passive Smoke Exposure: Past Smokeless Tobacco: Never [facility] Utilities Answer Date Recorded In the past 12 months has [employer] electric, gas, oil, or water company threatened [...] week 09/02/2024 How often do you attend chur ch or gnosticist services? 1 to 4 times per year 09/02/2024 Do you belong to any clubs o r organizations such as holiness groups, unions, fraternal or athletic groups, or [...] money to buy more. Never true 09/03/19 25 Within the past 12 months, t [...] any time in the past 12 m [place], were you homeless or living in a senior care (including now)? No 09/02/2024 Personal Safety Answer Date Recorded Have you ever been in or are you currently in a harmful physical or emotional relationship or is someone making you feel afraid or unsafe? Denies 08/26/2024 Comments No Sex and Gender Information Value Date Recorded Sex Assigned at Not on file Legal Sex Female 11:40 AM BAND LINING BANDER Gender Identity Female 03/03/2024 7:19 AM CDT Sexual Orientation Not on file documented as of this encounter Plan of Treatment Upcoming Encounters Date Type Department Care Team (Late st Contact Info) Description 08/31/2025 8:25 AM CDT Hospital Encounter [address] [address] Zuly Laguerre MD [address] [facility] [address] [place] [address] [place] [address] 08/31/2025 8:25 AM CDT - 08/31/2025 8:55 AM CDT Surgery [address] [address] Zuly Laguerre MD [address] [facility] [address] [place] [address] COLONOSCOPY Scheduled Procedures Name Priority Associated Diagnoses Date/Ti me COLONOSCOPY History of colonic polyps Diverticulosis 08/31/2025 8:25 AM CDT documented as of this encounter Visit Diagnoses Not on filedocumented in this encounter Care Teams Underground Mine Machinery Mechanic Relationship Specialty Start Date End Date Aria Flores NP PCP - General Family Medicine 01/24/24 Raphael Kirkland MD [address] [facility] [address] [place] [address] [place] [address] Consulting Physician Vascular Surgery 04/17/24 Emerita Amado MD [address] [facility] [address], [place] [address] Consulting Physician Interventional Cardiology 05/05/24 Zuly Laguerre MD [address] [place] [address] [address] [place] [address] Consulting Physician Gastroenterology 08/31/24 Monique Lundy RN [address] [place] [address] [address] [place] [address] Systems Spec 09/02/24 10/09/24 documented as of this encounter
--- OUTSIDE RECORDS SUMMARY | 2024-10-23 15:29 | XMS_ITS | Encounter Summary ---
Author Organization [facility] Healthcare Address [address] [place] [address] Care Team Providers Care Rn Chronic Name Role Phone Aria Flores NP Primary Care Provider [phone] Raphael Kirkland MD Unavailable Emerita Amado MD Unavailable [phone] Zuly Laguerre MD Unavailable [phone] Monique Lundy RN Unavailable [phone] Encounter Details Date Type Department Care Team (Late st Contact Info) Description 10/09/2024 Results Follow-Up [facility] Medical Group Sports Medicine and Primary Care at [address] [place] [address] Manda Duke MA MRI Shoulder Right WO Contrast Social History Tobacco Use Types Packs/Day Years Used Date Smoking Tobacco: Former Cigarettes 0.8 52.6 0 1970 - 02/16/2023 Passive Smoke Exposure: Past Smokeless Tobacco: Never [facility] Utilities Answer Date Recorded In the past 12 months has [employer] electric, gas, oil, or water company threatened [...] often do you attend chur ch or confucianism services? 1 to 4 times per year 09/02/2024 Do you belong to any clubs o r organizations such as confucianism groups, unions, fraternal or athletic groups, or [...] any time in the past 12 m [facility], were you homeless or living in a residential (including now)? No 09/02/2024 Personal Safety Answer Date Recorded Have you ever been in or are you currently in a harmful physical or emotional relationship or is someone making you feel afraid or unsafe? Denies 08/26/2024 Comments No Sex and Gender Information Value Date Recorded Sex Assigned at Not on file Legal Sex Female 11:40 AM MEDICAL LEADER Gender Identity Female 03/03/2024 7:19 AM CDT Sexual Orientation Not on file documented as of this encounter Miscellaneous Notes * Result Encounter Note - Manda Duke MA - 10/09/2024 12:08 PM CDT Spoke to patient she voiced understand a referral for Dr. Dunaway has been placed. documented in this encounter Plan of Treatment Upcoming Encounters Date Type Department Care Team (Late st Contact Info) Description 08/31/2025 8:25 AM CDT Hospital Encounter [address] [address] Zuly Laguerre MD [address] [place] [address] [address] [place] [address] 08/31/2025 8:25 AM CDT - 08/31/2025 8:55 AM CDT Surgery [address] [address] Zuly Laguerre MD [address] [place] [address] [address] [place] [address] COLONOSCOPY Scheduled Procedures Name Priority Associated Diagnoses Date/Ti me COLONOSCOPY History of colonic polyps Diverticulosis 08/31/2025 8:25 AM CDT documented as of this encounter Visit Diagnoses Not on filedocumented in this encounter Care Teams Rn Chronic Relationship Specialty Start Date End Date Aria Flores NP PCP - General Family Medicine 01/24/24 Raphael Kirkland MD [address] [facility] [address] [address] [place] [address] Consulting Physician Vascular Surgery 04/17/24 Emerita Amado MD [facility] [address] [place] [address] Consulting Physician Interventional Cardiology 05/05/24 Zuly Laguerre MD [address] [facility] [address] [place] [address] Consulting Physician Gastroenterology 08/31/24 Monique Lundy RN [address] [place] [address] [address] [place] [address] Docketing Specialist 09/02/24 10/09/24 documented as of this encounter
--- OUTSIDE RECORDS SUMMARY | 2024-10-23 15:29 | XMS_ITS | Encounter Summary ---
Author Organization [facility] Healthcare Address [address] [place] [address] Care Team Providers Care Bobtail Driver Name Role Phone Aria Flores NP Primary Care Provider [phone] Raphael Kirkland MD Unavailable Emerita Amado MD Unavailable Zuly Laguerre MD Unavailable [phone] Monique Lundy RN Unavailable [phone] Encounter Details Date Type Department Care Team (Latest Contact Info) Description 09/17/2024 Results Follow-Up [facility] Medical Group Gastroenterology at [address] [place] [address] Zuly Laguerre MD [address] [place] [address] [address] [place] [address] Surgical pathology Social History Tobacco Use Types Packs/Day Years Used Date Smoking Tobacco: Former Cigarettes 0.8 52.6 0 1970 - 02/16/2023 Passive Smoke Exposure: Past Smokeless Tobacco: Never [facility] Utilities Answer Date Recorded In the past 12 months has e electric, gas, oil, or water company threatened to shut off services in your home? No 09/02/2024 Social Connection and Isolation Panel [NHANES] A nswer Date Recorded In a typical week, how many times do you talk on the phone with family, friends, or neighbors? Twice a week 09/03/19 25 How often do you get togethe r with friends or relatives? Twice a week 09/02/2024 How often do you attend chur ch or rastafarian services? 1 to 4 times per year 09/02/2024 Do you belong to any clubs o r organizations such as evangelical groups, unions, fraternal or athletic groups, or [...] any time in the past 12 m [facility], were you homeless or living in a halfway (including now)? No 09/02/2024 Personal Safety Answer Date Recorded Have you ever been in or are you currently in a harmful physical or emotional relationship or is someone making you feel afraid or unsafe? Denies 08/26/2024 Comments No Sex and Gender Information Value Date Recorded Sex Assigned at Not on file Legal Sex Female 11:40 AM GLEASON OPERATOR Gender Identity Female 03/03/2024 7:19 AM CDT Sexual Orientation Not on file documented as of this encounter Plan of Treatment Upcoming Encounters Date Type Department Care Team (Late st Contact Info) Description 08/31/2025 8:25 AM CDT Hospital Encounter [address] [address] Zuly Laguerre MD [address] [place] [address] [address] [place] [address] 08/31/2025 8:25 AM CDT - 08/31/2025 8:55 AM CDT Surgery [address] [address] Zuly Laguerre MD [address] [place] [address] [address] [place] [address] COLONOSCOPY Scheduled Procedures Name Priority Associated Diagnoses Date/Ti me COLONOSCOPY History of colonic polyps Diverticulosis 08/31/2025 8:25 AM CDT documented as of this encounter Visit Diagnoses Not on filedocumented in this encounter Care Teams Bobtail Driver Relationship Specialty Start Date End Date Aria Flores NP PCP - General Family Medicine 01/24/24 Raphael Kirkland MD [address] [facility] [address] [place] [address] [place] [address] Consulting Physician Vascular Surgery 04/17/24 Emerita Amado MD [facility] [address] [facility] [address] [place] [address] Consulting Physician Interventional Cardiology 05/05/24 Zuly Laguerre MD [address] [place] [address] [address] [place] [address] Consulting Physician Gastroenterology 08/31/24 Monique Lundy, JANES [address] [place] [address] [address] [place] [address] Police Captain Senior 09/02/24 10/09/24 documented as of this encounter
--- OUTSIDE RECORDS SUMMARY | 2024-10-23 15:29 | XMS_ITS | Data Portability ---
Author Organization [place] [facility], Main Office Address [address] [place] [address] Assessment Encounter Date Assessment Date Assessment LastModified by Organization Details LastModified Time 11/13/2023 11/13/2023 Assessment: RUIZ Central sleep apnea PLMD Hypoventilation Plan: The following were reviewed and explained to the patient: primary care/referral note General information on sleep disordered breathing, evaluation of sleep disordered breathing, treatment with PAP therapy, and living with PAP therapy were covered. Chapter 1 of educational DVD was shown. PSG is medically necessary to determine the degree of and management of sleep apnea. We discussed with the patient the impact of weight on: Sleep disordered breathing Hypertension Hyperlipidemia Osteopenia Lumbar stenosis We discussed with the patient the benefit of PAP therapy on: Sleep disordered breathing Rhinitis Hypertension Educated the patient on sleep hygiene measures. Relaxing rituals to rest easy, understanding foods with positive and negative impact on sleep, creating a peaceful sleep environment, timing of exercise, using herbal sleep aids, and practicing sleep-friendly meditation were covered. To determine how much sleep is needed, the patient will assess where she falls on the spectrum, examine what lifestyle factor such as stress is affecting the quality and quantity of sleep. In general, adults need 7-9 hours of sleep. Educated the patient regarding foods that promote sleep. These include but are not limited to cherries, bananas, toast, oatmeal, and warm milk. Educated the patient regarding foods and drinks to avoid before bedtime. These include but are not limited to aged cheese, chocolate, spicy foods, tomato-based sauces, soy, ginseng tea and processed meat. Advocated influenza vaccination annually and pneumonia vaccination RADHA. Advocated weight loss through diet and exercise. Patient's ideal body weight according to height and gender is up to 130 lbs. Encouraged patient to adjust caloric intake to maintain/achieve ideal body weight, emphasizing on fruits, vegetables, whole grains, and fat-free or low-fat products. These include lean meats, poultry, fish, beans, eggs, and nuts and foods that are low in saturated fats, trans-fats, cholesterol, salt (sodium), and glycemic index. Stressed the importance of regular exercise up to the patient's capacity limits. In this case, we recommend regular (4 x a week or more) walking over cone, side stepping or other light activity. Patient to monitor BP daily and bring records to PCP for further management. Follow-up: 1 week after diagnostic sleep study Not available 11/13/2023 10:49:11 12/17/2023 12/17/2023 Assessment: Mild OSAHS, AHI = 2 PLMD Plan: The following were reviewed and explained to the patient: [facility] diagnostic sleep study 12/11/23 sleep onset = 33 minutes, REM onset = 301 minutes, AHI = 2, REM AHI = 21, PLMI = 36 Elevation in periodic limb movement index may be contributed by Zyrtec. Non-pharmacologi c therapy options for periodic limb movement disorder include avoidance of aggravating drugs and substances, mental alerting activities, short daily hemodialysis for patients in renal failure, exercise, leg massage, stretching calf muscles, use of a weighted blanket and applied heat. Patient will cut down on caffeine intake. We will check BUN, Creatinine, Vitamin E, Vitamin B12, RBC folate, Iron, TIBC, Ferritin, ESR, Magnesium, Hgb and Hct levels. General information on sleep disordered breathing and evaluation of sleep disordered breathing were covered. We discussed with the patient the impact of weight on: Sleep disordered breathing Hypertension Hyperlipidemia Osteopenia Lumbar stenosis Educated the patient on sleep hygiene measures. Relaxing rituals to rest easy, understanding foods with positive and negative impact on sleep, creating a peaceful sleep environment, timing of exercise, using herbal sleep aids, and practicing sleep-friendly meditation were covered. To determine how much sleep is needed, the patient will assess where she falls on the spectrum, examine what lifestyle factor such as stress is affecting the quality and quantity of sleep. In general, adults need 7-9 hours of sleep. Educated the patient regarding foods that promote sleep. These include but are not limited to cherries, bananas, toast, oatmeal, and warm milk. Educated the patient regarding foods and drinks to avoid before bedtime. These include but are not limited to aged cheese, chocolate, spicy foods, tomato-based sauces, soy, ginseng tea and processed meat. Advocated influenza vaccination annually and pneumonia vaccination RADHA. Advocated weight loss through diet and exercise. Patient's ideal body weight according to height and gender is up to 130 lbs. Encouraged patient to adjust caloric intake to maintain/achieve ideal body weight, emphasizing on fruits, vegetables, whole grains, and fat-free or low-fat products. These include lean meats, poultry, fish, beans, eggs, and nuts and foods that are low in saturated fats, trans-fats, cholesterol, salt (sodium), and glycemic index. Stressed the importance of regular exercise up to the patient's capacity limits. In this case, we recommend regular (4 x a week or more) walking over cone, side stepping or other light activity. Patient to monitor BP daily and bring records to PCP for further management. Follow-up: 3 weeks Not available 12/17/2023 10:24:26 01/07/2024 01/07/2024 Assessment: Mild OSAHS, AHI = 2 PLMD Iron deficiency Plan: The following were reviewed and explained to the patient: [facility] diagnostic sleep study 12/11/23 sleep onset = 33 minutes, REM onset = 301 minutes, AHI = 2, REM AHI = 21, PLMI = 36 Creatinine 12/23/23 1.02 mg% B12 12/23/23 1612 pg/mL Ferritin 12/23/23 15 ng/mL Elevation in periodic limb movement index may be contributed by Zyrtec. Non-pharmacologi c therapy options for periodic limb movement disorder include avoidance of aggravating drugs and substances, mental alerting activities, short daily hemodialysis for patients in renal failure, exercise, leg massage, stretching calf muscles, use of a weighted blanket and applied heat. Patient will cut down on caffeine intake. BUN, Creatinine, Vitamin E, RBC folate, Iron, TIBC, ESR, Magnesium, Hgb and Hct levels are within normal limits. Patient will take FeSO4 325 mg + Vit C 500 mg daily to keep the ferritin > 75 ng/ml. Patient will discontinue B12 supplements. Check ferritin one week before return. We will hold off on dopaminergic therapy for now. General information on sleep disordered breathing and evaluation of sleep disordered breathing were covered. We discussed with the patient the impact of weight on: Sleep disordered breathing Hypertension Hyperlipidemia Osteopenia Lumbar stenosis Educated the patient on sleep hygiene measures. Relaxing rituals to rest easy, understanding foods with positive and negative impact on sleep, creating a peaceful sleep environment, timing of exercise, using herbal sleep aids, and practicing sleep-friendly meditation were covered. To determine how much sleep is needed, the patient will assess where she falls on the spectrum, examine what lifestyle factor such as stress is affecting the quality and quantity of sleep. In general, adults need 7-9 hours of sleep. Educated the patient regarding foods that promote sleep. These include but are not limited to cherries, bananas, toast, oatmeal, and warm milk. Educated the patient regarding foods and drinks to avoid before bedtime. These include but are not limited to aged cheese, chocolate, spicy foods, tomato-based sauces, soy, ginseng tea and processed meat. Advocated influenza vaccination annually and pneumonia vaccination RADHA. Advocated weight loss through diet and exercise. Patient's ideal body weight according to height and gender is up to 130 lbs. Encouraged patient to adjust caloric intake to maintain/achieve ideal body weight, emphasizing on fruits, vegetables, whole grains, and fat-free or low-fat products. These include lean meats, poultry, fish, beans, eggs, and nuts and foods that are low in saturated fats, trans-fats, cholesterol, salt (sodium), and glycemic index. Stressed the importance of regular exercise up to the patient's capacity limits. In this case, we recommend regular (4 x a week or more) walking over cone, side stepping or other light activity. Patient to monitor BP daily and bring records to PCP for further management. Follow-up: 3 months, April 2024 Not available 01/07/2024 12:51:15 Plan of Treatment Reminders Order Date Submit Date Provider Last Modified By Organization Details Last Modified Time Details Appointments None recorded. Lab ferritin, serum or plasma 2023 [email or web address] [place] [address] - Outpatient Lab, [address] [place] [address], [address], 14:49:54 iron + TIBC + ferritin, serum 2023 [facility], [address], [place], [address], 4 21:36:51 folate, RBC 2023 [facility], [address], [place], [address], 4 21:36:53 vitamin B12, serum 2023 [facility], [address], [place], [address], 4 21:36:54 ESR (erythrocyt e sedimentati on rate), blood [email or web address], [address], [place], [address], 15:21:33 hemoglobin + hematocrit, blood 2023 [facility], [address], [place], [address], 4 21:36:53 bun (blood urea nitrogen), serum or plasma 2023 [facility], [address], [place], [address], 4 21:36:51 creatinine, serum or plasma 2023 [facility], [address], [place], [address], 4 21:36:52 magnesium, serum or plasma 2023 [facility], [address], [place], [address], 4 21:36:52 vitamin E, serum 2023 024 G[facility] [employer] [facility], [address], [place], [address], 4 21:36:54 urinalysis, dipstick [address], [place], [address], 4 13:37:41 culture, urine + sensitivity 2023 024 [email or web address] 2 [employer] [facility], [address], [place], [address], 4 08:35:37 urinalysis, dipstick [address], [place], [address], 4 16:32:55 culture, urine + sensitivity 2023 024 [facility] [employer] [facility], [address], [place], [address], 4 15:36:45 Referral physical therapist referral - left shoulder strain *PLease call pt to schedule* 2023 024 [facility], [address] [place] [address] , [place], [address], 4 15:36:19 sleep medicine referral - Please call patient to schedule an appointment . Thank you. 2023 024 [email or web address] [facility], [address] [place], [address], 4 08:54:09 Procedures None recorded. Surgeries None recorded. Imaging polysomnogr am, diagnostic, 6 yrs or older - [id number] 11/14/23-02/25 024 [email or web address] 82 [facility], [address] [place], [address], 4 08:34:46 US, extremity, nonvascular , complete - *Please call pt to schedule* 2023 024 [email or web address] 256 [facility]), [address] [place], [address], 4 09:55:51 Medication Orders ferrous sulfate 325 mg (65 mg iron) tablet 2023 024 JELLY [facility], [address], [place], [id number], 4 13:59:14 Vitamin C 500 mg tablet 2023 024 [facility]59213, [address], [place], [id number], 4 13:29:26 nitrofurant oin monohydrate /macrocryst als 100 mg capsule 2023 024 [facility], [address], [place], [id number], 4 10:54:57 mupirocin 2 % topical ointment 2023 024 [facility]815[facility], [address], [place], [id number], 4 10:54:53 Patient TargetsNo targets recorded. Patient InstructionsNo instructions recorded. Reason for Referral Sleep Medicine Referral for Snoring Please call patient to schedule an appointment. Thank you. Referring Physician: Moise Maria, Family Medicine, Encounter Date: 10/26/2023 Physical Therapist Referral for Strain of muscle of left shoulder left shoulder strain *PLease call pt to schedule* Referring Physician: Moise [facility], Encounter Date: 10/26/2023 Results Created Date Observation Date Name Description Value Unit Range Abnormal Flag Note LastModifiedBy Organization Detail LastModifiedTime 06/05/19 24 06/05/2023 urina lysis , dipst ick Leukocytes (reference range: negative yamilex/ l) Negati ve Not Available [address], [place], [address], 06/05/2023 13:49:16 06/05/1906/05/2023 urina lysis , dipst ick Nitrite (reference rage: negative mg/dl) negati ve Not Available [address], [place], [address], 06/05/2023 13:49:16 06/05/1906/05/2023 urina lysis , dipst ick Urobilinogen (reference range: 0.2-1 mg/dl) 0.2 Not Available [address] [address], [place], [address], 06/05/2023 13:49:16 06/05/1906/05/2023 urina lysis , dipst ick Protein (reference range: negative mg/dl) Negati ve Not Available [address], [place], [address], 06/05/2023 13:49:16 06/05/1906/05/2023 urina lysis , dipst ick pH (reference range: 5-7) 5.5 Not Available [address], [place], [address], 06/05/2023 13:49:16 06/05/19 24 06/05/2023 urina lysis , dipst ick Blood (reference range: negative Edward/ l) Negati ve Not Available [address], [place], [address], 06/05/2023 13:49:16 06/05/19 24 06/05/2023 urina lysis , dipst ick Specific [place] (reference range: 1.005-1.030) 1.015 Not Available [address], [place], [address], 06/05/2023 13:49:16 06/05/19 24 06/05/2023 urina lysis , dipst ick Ketone (reference range: negative mg/dl) Negati ve Not Available [address], [place], [address], 06/05/2023 13:49:16 06/05/19 24 06/05/2023 urina lysis , dipst ick Bilirubin (reference range: negative mg/dl) Negati ve Not Available [address], [place], [address], 06/05/2023 13:49:16 06/05/19 24 06/05/2023 urina lysis , dipst ick Glucose (reference range: negative mg/dl) Negati ve Not Available [address], [place], [address], 06/05/2023 13:49:16 06/05/19 24 06/05/2023 urina lysis , dipst ick Appearance Clear Not Available [address], [place], [address], 06/05/2023 13:49:16 06/05/19 24 06/05/2023 urina lysis , dipst ick Color Yellow Not Available [address], [place], [address], 06/05/2023 13:49:16 10/26/19 24 10/26/2023 urina lysis , dipst ick Leukocytes (reference range: negative yamilex/ l) Negati ve Not Available [address], [place], [address], 10/26/2023 13:16:36 10/26/19 24 10/26/2023 urina lysis , dipst ick Nitrite (reference rage: negative mg/dl) negati ve Not Available [address], [place], [address], 10/26/2023 13:16:36 10/26/19 24 10/26/2023 urina lysis , dipst ick Urobilinogen (reference range: 0.2-1 mg/dl) 0.2 Not Available [address], [place], [address], 10/26/2023 13:16:36 10/26/19 24 10/26/2023 urina lysis , dipst ick Protein (reference range: negative mg/dl) Negati ve Not Available [address], [place], [address], 10/26/2023 13:16:36 10/26/19 24 10/26/2023 urina lysis , dipst ick pH (reference range: 5-7) 5.5 Not Available [address], [place], [address], 10/26/2023 13:16:36 10/26/19 24 10/26/2023 urina lysis , dipst ick Blood (reference range: negative Edward/ l) Negati ve Not Available [address], [place], [address], 10/26/2023 13:16:36 10/26/19 24 10/26/2023 urina lysis , dipst ick Specific [place] (reference range: 1.005-1.030) 1.020 Not Available [address], [place], [address], 10/26/2023 13:16:36 10/26/19 24 10/26/2023 urina lysis , dipst ick Ketone (reference range: negative mg/dl) Negati ve Not Available [address], [place], [address], 10/26/2023 13:16:36 10/26/19 24 10/26/2023 urina lysis , dipst ick Bilirubin (reference range: negative mg/dl) Negati ve Not Available [address], [place], [address], 10/26/2023 13:16:36 10/26/19 24 10/26/2023 urina lysis , dipst ick Glucose (reference range: negative mg/dl) Negati ve Not Available [address], [place], [address], 10/26/2023 13:16:36 10/26/19 24 10/26/2023 urina lysis , dipst ick Appearance Clear Not Available [address], [place], [address], 10/26/2023 13:16:36 10/26/19 10/26/2023 urina lysis , dipst ick Color Pale Yellow Not Available [facility] [address], [place], [address], 10/26/2023 13:16:36 12/19/19 24 12/23/2023 IRON, TIBC AND MARIANO TIN PANEL iron, total 89 mcg/d L 45-160 normal Not Available [address], [address], 12/23/2023 21:36:51 12/19/19 24 12/23/2023 IRON, TIBC AND MARIANO TIN PANEL iron binding capacity 387 mcg/d L_(ca lc) 250-45 0 normal Not Available [address], [address], 12/23/2023 21:36:51 12/19/19 24 12/23/2023 IRON, TIBC AND MARIANO TIN PANEL % saturation 23 %_(ca lc) 16-45 normal Not Available [address], [address], 12/23/2023 21:36:51 12/19/19 24 12/23/2023 IRON, TIBC AND MARIANO TIN PANEL ferritin 15 NG/mL 16-288 low Not Available [address], [address], 12/23/2023 21:36:51 12/19/19 24 12/23/2023 IRON, TIBC AND MARIANO TIN PANEL copy(ies) sent to: ARUNA PLASCENCIA [address] [facility] [address] [address] Not Available [address], [address], 12/23/2023 21:36:51 12/19/19 24 12/23/2023 UREA NITRO GEN (BUN) urea nitrogen (BUN) 17 mg/dL 7-25 normal Not Available [facility] [address] [place], [address], 12/23/2023 21:36:51 12/19/19 24 12/23/2023 UREA NITRO GEN (BUN) copy(ies) sent to: ARUNA ON [address],[place] [address] Not Available [address], [address], 12/23/2023 21:36:51 12/19/19 24 12/23/2023 CREAT ININE creatinine 1.02 mg/dL 0.60-1 .00 high Not Available [address], [address], 12/23/2023 21:36:52 12/19/19 24 12/23/2023 CREAT ININE eGFR 57 mL/mi n/1.7 3m2 > or = 60 low Not Available [address], [address], 12/23/2023 21:36:52 12/19/19 24 12/23/2023 CREAT ININE copy(ies) sent [facility]: [facility] [address] [address] [place] [address] Not Available [place] [address] [place], [address], 12/23/2023 21:36:52 12/19/19 24 12/23/2023 MAGNE SIUM magnesium 2.3 mg/dL 1.5-2. 5 normal Not Available [employer] [place] [address] [place], [address], 12/23/2023 21:36:52 12/19/19 24 12/23/2023 MAGNE SIUM copy(ies) sent to: [facility] [address] [address] [place] [address] Not Available [employer] [address], [address], 12/23/2023 21:36:52 12/19/1912/23/2023 SED RATE BY MODIF IED WESTE RGREN sed rate by modified westergren 22 mm/h < or = 30 normal Not Available [address], [address], 12/23/2023 21:36:53 12/19/19 24 12/23/2023 SED RATE BY MODIF IED WESTE RGREN copy(ies) sent to: ARUNA ABERNATHY [address] [place] [address] Not Available [address], [address], 12/23/2023 21:36:53 12/19/19 24 12/23/2023 HEMOG LOBIN + HEMAT OCRIT hemoglobin 13.0 g/dL 11.7-1 5.5 normal Not Available [address], [address], 12/23/2023 21:36:53 12/19/19 24 12/23/2023 HEMOG LOBIN + HEMAT OCRIT hematocrit 41.3 % 35.0-4 5.0 normal Not Available [address], [address], 12/23/2023 21:36:53 12/19/19 24 12/23/2023 HEMOG LOBIN + HEMAT OCRIT copy(ies) sent to: ARUNA SKAGGS [address] [place] [address] Not Available [address], [address], 12/23/2023 21:36:53 12/19/19 24 12/23/2023 FOLAT E, RBC folate, RBC 525 NG/mL _RBC >280 normal Not Available [address] [place], [address], 12/23/2023 21:36:53 12/19/19 24 12/23/2023 FOLAT E, RBC copy(ies) sent to: ARUNA SKAGGS [address] [facility] [place] [address] Not Available [facility] [place] [address] [place], [address], 12/23/2023 21:36:53 12/19/19 24 12/23/2023 VITAM IN B12 vitamin B12 1612 pg/mL 200-11 00 high Not Available [facility] [place] [address] [place], [address], 12/23/2023 21:36:54 12/19/19 24 12/23/2023 VITAM IN B12 copy(ies) sent to: ARUNA ISABELA [address] [facility] [place] [address] Not Available [employer] [place] [address] [place], [address], 12/23/2023 21:36:54 12/19/19 24 12/23/2023 VITAM IN E (TOCO PHERO L) vitamin E, alpha tocopherol 9.8 mg/L 5.7-19 .9 Level s of alpha -toco phero l <5 mg/L are consi stent with Vitam in E defic iency in adult s. Not Available [facility] [employer] [place] [address] [place], [address], 12/23/2023 21:36:54 12/19/19 24 12/23/2023 VITAM IN E (TOCO PHERO L) vitamin E, beta gamma tocopherol 2.8 mg/L <4.4 (Note ) Vitam in suppl ement ation withi n 24 hours prior to blood draw may affec t the accur acy of resul ts. This test was devel oped and its yamile tical perfo rmanc e pastor cteri stics have been deter mined by [facility]. It has not been clear ed or appro ramiro by the FDA. This assay has been valid ated pursu ant to the CLIA regul ation s and is used for clini everette purpo ses. MDF med fusio n [address] [facility] [address] [place] [address] [phone] Donald Aponte MD, PhD Not Available [employer] [facility] [address] [place], [address], 12/23/2023 21:36:54 12/19/19 24 12/23/2023 VITAM IN E (TOCO PHERO L) copy(ies) sent to: ARUNA SKAGGS [facility] [address] [facility] [place] [address] Not Available [employer] [facility] [address] [address], [place], [address], 12/23/2023 21:36:54 06/05/19 24 06/05/2023 MAMMO , scree dennis, digit al, bilat eral No observ ation record ed. [email or web address] [place] [address] [address] [place], [address], 06/23/2023 20:33:57 12/13/19 24 12/11/2023 polys omnog kristy, diagn ostic , 6 yrs or older No observ ation record ed. [facility] [place] [address] [place], [address], 12/13/2023 15:00:48 Result Notes None recorded. Problems Name Problem SNOMED Code Status Onset Date Resolution Date Notes Provider Name and Address Organization Details Recorded Time Essential hypertension 38487158 Active 2021 Not Available [employer] 3 10:44:39 Herpes zoster 4614459 Active 2022 Levon Finn MD [address] [facility], [facility] [address], [place], [address] , [facility] 3 12:50:06 Spinal stenosis of lumbar region 82376060 Active 2022 Levon Finn MD [address], [address], [place], [address] , [place] [facility] 3 09:07:08 Hyperlipidemi a 15125134 Active 2022 Levon Finn MD [address], [address], [place], [address] , [place] [facility] 3 09:14:55 Cigarette smoker 18948373 Active 2022 Levon Finn MD [address], [address], [place], [address] , [place] [facility] 3 11:59:10 Screening for malignant neoplasm of breast Active 2022 SUMIT Carballo [address], [address], [place], [address] , [place] [facility] 3 12:30:28 Vitamin D deficiency 15787073 Active 2023 SUMIT Carballo [address], [address], [place], [address] , [place] [facility] 4 16:38:23 Sleep apnea 76698822 Active 2023 Wilian Oliva MD [address], [address], [place], [address] , [place] [facility] 4 10:49:16 Obstructive sleep apnea syndrome 40403082 Active 2023 Wilian Oliva MD [address], [address], [place], [address] , [place] [facility] 4 10:09:00 Periodic limb movement disorder 673615208 Active 2023 Wilian Oliva MD [address], [address], [place], [address] , [place] [facility] 4 10:09:10 Iron deficiency 88501692 Active 2023 Wilian Oliva MD [address], [address], [place], [address] , [facility] 4 12:43:14 Notes:Medical History: Rhini tis Obesity with mild OSAHS, AHI = 2, 12/11/23 Hypertension Hyperlipidemia PLMD Iron deficiency Vit B12 deficiency, resolved Vit D deficiency Hip osteopenia Lumbar stenosis Herpes zoster Procedure History: Lumbar laminectomy 2023 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 Procedures Surgical History Date Name Laterality Status Provider Name and Address Organization Details Recorded Time 3 Medicare Wellness CPT Code, subsequent completed Maria E Luna RN [facility] 05/29/2023 11:56:46 3 Most Recent Bone Density completed Maria E Luna RN [facility] [employer] [facility] 05/29/2023 12:12:07 2 Most Recent Mammogram completed Maria E Luna RN [facility] [employer] [facility] 05/29/2023 12:11:15 0 Date of Last Colonoscopy completed Maria E Luna RN [facility] [employer] [facility] 05/29/2023 12:12:22 Back Surgery completed Humera Urban RN [facility] [employer] [facility] 10/26/2023 12:53:04 Imaging Results Imaging Date Name Status LastModified by Organiz ation Details LastModified Time 06/05/2023 MAMMO, screening, digital, bilateral completed [email or web address] [place], [address], 06/23/2023 20:33:57 12/11/2023 polysomnogram, diagnostic, 6 yrs or older completed [facility] [address] [place], [address], 12/13/2023 15:00:48 Procedure Notes None recorded. Medical Equipment None Reported. Allergies No known drug allergies Medications Name Sig Start Date Stop Date Status Note LastModified by Organization Details LastModified Time antacid/dip hen/lido 111 mouthwas SWISH AND SPIT 5 ML FOUR TIMES DAILY 11/20 completed Not Available Not Available Not Available amoxicillin 500 mg capsule TAKE 1 CAPSULE BY MOUTH THREE TIMES DAILY FOR 7 DAYS 10/25 completed Not Available Not Available Not Available methocarbam ol 500 mg tablet TAKE 1 TABLET BY MOUTH THREE TIMES DAILY 12/16 completed Not Available Not Available Not Available atorvastati n 20 mg tablet TAKE 1 TABLET BY MOUTH DAILY active Not Available Not Available No t Available nicotine 14 mg/24 hr daily transdermal patch Apply 1 patch every day by transderm al route for 14 days. 05/29 completed Not Available Not Available Not Available clindamycin HCl 300 mg capsule 11/20 completed Not Available Not Available Not Available Vitamin C 500 mg tablet TAKE 1 TABLET BY MOUTH DAILY active Not Available Not Available No t Available azithromyci n 250 mg tablet 09/25 completed Not Available Not Available Not Available Lidocaine Viscous 2 % mucosal solution 05/29 completed Not Available Not Available Not Available benzonatate 200 mg capsule TAKE 1 CAPSULE BY MOUTH THREE TIMES DAILY NEEDED FOR COUGH 02/20 completed Not Available Not Available Not Available citalopram 10 mg tablet active Not Available Not Available Not Available valacyclovi r 1 gram tablet TAKE 1 TABLET BY MOUTH THREE TIMES DAILY FOR 7 DAYS 10/25 completed Not Available Not Available Not Available hydrocodone 5 mg-acetamin ophen 325 mg tablet TAKE 1 TABLET BY MOUTH EVERY 6 HOURS NEEDED FOR PAIN 05/29 completed Not Available Not Available Not Available metronidazo le 500 mg tablet TAKE 1 TABLET BY MOUTH FOUR TIMES DAILY 11/20 completed Not Available Not Available Not Available fluocinonid e 0.05 % topical ointment APPLY TO THE AFFECTED AREA(S) BY TOPICAL ROUTE 2 TIMES PER DAY 11/10 completed Not Available Not Available Not Available amlodipine 5 mg tablet TAKE 1 TABLET BY MOUTH EVERY DAY active Not Available Not Available No t Available ciprofloxac in 500 mg tablet TAKE 1 TABLET BY MOUTH EVERY 12 HOURS FOR 7 DAYS 09/13 completed Not Available Not Available Not Available sulfamethox azole 800 mg-trimetho prim 160 mg tablet TAKE 1 TABLET BY MOUTH TWICE DAILY 09/13 completed Not Available Not Available Not Available tramadol 50 mg tablet TAKE 1 TABLET BY MOUTH EVERY 4 TO 6 HOURS NEEDED FOR PAIN 05/29 completed Not Available Not Available Not Available triamcinolo ne acetonide 0.1 % topical cream 05/29 completed Not Available Not Available Not Available amoxicillin 875 mg tablet TAKE 1 TABLET BY MOUTH TWICE DAILY 11/20 completed Not Available Not Available Not Available clindamycin 1 % topical gel APPLY TOPICALLY TO THE AFFECTED AREA TWICE DAILY 02/20 completed Not Available Not Available Not Available oseltamivir 75 mg capsule TAKE 1 CAPSULE BY MOUTH TWICE DAILY FOR 5 DAYS 10/25 completed Not Available Not Available Not Available nicotine 21 mg/24 hr daily transdermal patch Apply 1 patch every day by transderm al route for 14 days. 05/29 completed Not Available Not Available Not Available gabapentin 300 mg capsule TAKE 1 CAPSULE BY MOUTH THREE TIMES DAILY 05/29 completed Not Available Not Available Not Available hydralazine 50 mg tablet TAKE 1 TABLET BY MOUTH TWICE DAILY active Not Available Not Available No t Available mupirocin 2 % topical ointment APPLY A SMALL AMOUNT TO THE AFFECTED AREA OF LIPS THREE TIMES DAILY 11/10 completed Not Available Not Available Not Available clobetasol 0.05 % topical ointment APPLY A THIN LAYER TO THE AFFECTED AREA(S chest lesions ) BY TOPICAL ROUTE 2 TIMES PER DAY 11/10 completed Not Available Not Available Not Available methylpredn isolone 4 mg tablets in a dose pack FOLLOW PACKAGE DIRECTION S 11/20 completed Not Available Not Available Not Available albuterol sulfate HFA 90 mcg/actuati on aerosol inhaler INHALE 2 PUFFS BY MOUTH EVERY 4 HOURS NEEDED FOR SHORTNESS OF BREATH OR WHEEZING 11/12 completed Not Available Not Available Not Available oxybutynin chloride 5 mg tablet TAKE 1 TABLET BY MOUTH THREE TIMES DAILY NEEDED FOR STENT PAIN 09/13 completed Not Available Not Available Not Available cefdinir 300 mg capsule TAKE 1 CAPSULE BY MOUTH EVERY 12 HOURS 09/13 completed Not Available Not Available Not Available amoxicillin 875 mg-potassiu m clavulanate 125 mg tablet TAKE 1 TABLET BY MOUTH TWICE DAILY 10/25 completed Not Available Not Available Not Available nicotine 7 mg/24 hr daily transdermal patch Apply 1 patch every day by transderm al route for 14 days. 05/29 completed Not Available Not Available Not Available Tylenol Extra Strength 500 mg tablet Take 2 tablets every 6 hours by oral route as needed for 10 days. 11/10 completed Not Available Not Available Not Available oxycodone 5 mg tablet 12/16 completed Not Available Not Available Not Available nitrofurant oin monohydrate /macrocryst als 100 mg capsule TAKE 1 CAPSULE BY MOUTH EVERY 12 HOURS FOR 10 DAYS 11/10 completed Not Available Not Available Not Available pregabalin 75 mg capsule TAKE 1 CAPSULE BY MOUTH EVERY 12 HOURS 12/16 completed Not Available Not Available Not Available FeroSul 325 mg (65 mg iron) tablet TAKE 1 TABLET BY MOUTH EVERY DAY active Not Available Not Available No t Available Zyrtec 10 mg capsule Take by oral route. active Not Available Not Available No t Available B12 1000mcg BID 11/12 completed Not Available Not Available Not Available Vitamin D3 50 mcg (2,000 unit) capsule TAKE ONE CAPSULE BY MOUTH EVERY DAY WITH MEAL active Not Available Not Available No t Available PreviDent 5000 Booster Plus 1.1 % dental paste USE TO BRUSH TEETH TWICE DAILY active Not Available Not Available No t Available Vitals Date Recorded Body height Provider Name an d Address Organization Details Last Updated DateTime 06/05/2023 162.56 cm Zarina zelaya MA [facility] 06/05/2023 10:40:15 Date Recorded Body height Body mass index (BMI) Body weight Body temperature Heart rate Oxygen saturation Oxygen saturation in Arterial blood by Pulse oximetry Respiratory rate Systolic blood pressure Diastolic blood pressure Provider Name and Address Organization Details Last Updated DateTime 4 162.56 cm 31.2 kg/m2 08379.8 1 g 98.3 [degF] 83 /min 94 % 94 % 16 /min 132 mm[Hg] 80 mm[Hg] Humera Urban RN [facility] 4 13:01:00 Date Recorded Body height Body mass index (BMI) Body weight Body temperature Heart rate Systolic blood pressure Diastolic blood pressure Provider Name and Address Organization Details Last Updated DateTime 4 162.56 cm 31.1 kg/m2 49379.2 2 g 97.8 [degF] 73 /min 120 mm[Hg] 64 mm[Hg] Marivel Vu CMA [facility] 4 10:22:36 Date Recorded Oxygen saturation Oxygen saturation in Arterial blood by Pulse oximetry Heart rate Respiratory rate Provider Name and Address Organization Details Last Updated DateTime 11/13/2023 95 % 95 % 73 /min 15 /min Wilian Oliva MD [address], [place], [address] , [place] [facility] 4 10:58:24 Date Recorded Body height Body mass index (BMI) Body weight Body temperature Systolic blood pressure Diastolic blood pressure Provider Name and Address Organization Details Last Updated DateTime 4 162.56 cm 30.9 kg/m2 43856.6 3 g 98 [degF] 120 mm[Hg] 70 mm[Hg] Marivel Vu [facility] [employer] [facility] 4 10:12:17 Date Recorded Respiratory rate Heart rate Heart rate Oxygen saturation Oxygen saturation in Arterial blood by Pulse oximetry Provider Name and Address Organization Details Last Updated DateTime 4 15 /min 94 /min 94 /min 95 % 95 % Wilian Oliva MD [address], [place], [address], [place] [facility] 4 10:33:51 Date Recorded Body height Body mass index (BMI) Body weight Heart rate Oxygen saturation Oxygen saturation in Arterial blood by Pulse oximetry Body temperature Systolic blood pressure Diastolic blood pressure Provider Name and Address Organization Details Last Updated DateTime 4 162.56 cm 30.7 kg/m2 20520.0 3 g 83 /min 96 % 96 % 97.6 [degF] 126 mm[Hg] 80 mm[Hg] Marivel Vu [facility] [employer] 4 12:14:59 Date Recorded Heart rate Respiratory rate Provider N fortino and Address Organization Details Last Updated DateTime 01/07/2024 83 /min 14 /min Wilian Oliva MD [address], [place], [address], [place] [facility] 01/07/2024 12:55:36 Social History Question Answer Notes LastModified by Organization Details LastModified Time Tobacco Smoking Status Former Smoker Maria E Luna RN [facility] [place], [place] [employer] 05/29/2023 12:04:10 Do You Have An Advance Directive? Yes Information not available 05/29/2023 Are You Blind Or Do You Have Difficulty Seeing? Yes Glasses [email or web address] Information not available 05/29/2023 What Is Your Level Of Caffeine Consumption? Moderate 3 Cups A Day [id number] Information not available 08/02/2022 In The 14 Days Before Symptom Onset, Have You Had Close Contact With A Laboratory-confi rmed COVID-19 While That Case Was Ill? No [email or web address] Information not available 05/29/2023 In The 14 Days Before Symptom Onset, Have You Had Close Contact With A Person Who Is Under Investigation For COVID-19 While That Person Was Ill? No [email or web address] Information not available 05/29/2023 Are You Deaf Or Do You Have Serious Difficulty Hearing? No [email or web address] Information not available 05/29/2023 What Type Of Diet Are You Following? REGULAR [id number] Information not available 08/02/2022 What Is The Highest Grade Or Level Of School You Have Completed Or The Highest Degree You Have Received? [id number] [email or web address] Information not available 05/29/2023 Have There Been Any Changes To Your Family Or Social Situation? No [email or web address] Information not available 05/29/2023 When Did You Quit Smoking? 1-5yearssincelastc igarette [email or web address] Information not available 05/29/2023 Do You Use Insect Repellent Routinely? Yes [email or web address] Information not available 05/29/2023 Where Do You Live? SingleLevelHouse [email or web address] Information not available 05/29/2023 Presence Of Domestic Violence No Information not available 05/29/2023 Guns Present In The Home? No [email or web address] Information not available 05/29/2023 Are You Able To Care For Yourself? Yes [email or web address] Information not available 05/29/2023 Are You Blind Or Do Yo Have Difficulty Seeing? Yes Glasses [email or web address] Information not available 05/29/2023 Are You Deaf Or Do You Have Serious Difficulty Hearing? No Information not available 05/29/2023 General Stress Level? Low Information not available 05/29/2023 Live Alone Of With Others? Alone [email or web address] Information not available 05/29/2023 Do You Have A Medical Power Of Sample Grader? Yes Daughter- Tori Information not available 05/29/2023 Do You Have Any Pets? No [email or web address] Information not available 05/29/2023 What Is Your Relationship Status? [email or web address] Information not available 05/29/2023 Do You Use Your Seat Belt Or Car Seat Routinely? Yes [email or web address] Information not available 11/13/2023 Do You Have Smoke And Carbon Monoxide Detectors In Your Home? Yes Information not available 05/29/2023 At What Age Did You Start Smoking Tobacco? 21 [id number] Information not available 08/02/2022 Are You Passively Exposed To Smoke? No [email or web address] Information not available 05/29/2023 Are There Any Smokers In Your House? No [email or web address] Information not available 05/29/2023 How Much Tobacco Do You Smoke? No 1/2 To 3/4 Pack Daily Information not available 05/29/2023 Do You Use Sunscreen Routinely? Yes [email or web address] Information not available 05/29/2023 How Many Years Have You Smoked Tobacco? 50 [id number].[id number] [id number] Information not available 08/02/2022 Have You Recently Traveled Abroad? No [email or web address] Information not available 05/29/2023 Do You Have Difficulty Walking Or Climbing Stairs? No [email or web address] Information not available 05/29/2023 Are You Currently In School? No [email or web address] Information not available 05/29/2023 Do You Have Any Dietary Restrictions? No [id number] [id number] Information not available 08/02/2022 Sex: Unknown Functional Status Question Answer Note LastModified by Organizat ion Details LastModified Time Do you use any illicit or recreational drugs? No [id number] Information not available 08/02/2022 Do you or have you ever used any other forms of tobacco or nicotine? No [id number] Information not available 08/02/2022 What is your level of alcohol consumption? None MIGRATION.[id number] Information not available 08/02/2022 Are you currently employed? No retired [email or web address] Information not available 05/29/2023 Do you have transportation difficulties? No Information not available 05/29/2023 Are you able to walk? YESWOREST [email or web address] Information not available 05/29/2023 Do you have difficulty doing errands alone? No Information not available 05/29/2023 Are you able to care for yourself? Yes Information n ot available 05/29/2023 Do you have difficulty dressing or bathing? No Information not available 05/29/2023 What is your exercise level? None [id number] Information not available 08/02/2022 Mental Status Question Answer Note LastModified by Organizat ion Details LastModified Time Do you feel stressed (tense, restless, nervous, or anxious, or unable to sleep at night)? [id number] [email or web address] Information not available 11/13/2023 Do you have difficulty concentrating, remembering or making decisions? No [email or web address] Information no t available 05/29/2023 Family History Relationship Description Onset Age of this Age Resolved Age Notes LastModified by Organization Details LastModified Time Father Alcoholism [email or web address] Not availa ble 12/17/2023 10:02:40 Father Myocardial infarction Not available 11/12 10:51:46 Mother Malignant neoplasm of lung [email or web address] Not available 2023 10:02:40 Sister Malignant tumor of breast [email or web address] Not available 2023 10:02:40 Sister Chronic obstructive pulmonary disease [email or web address] Not available 2023 10:02:40 Brother Malignant melanoma [email or web address] Not available 2023 10:02:40 Brother Atrial fibrillation [email or web address] Not available 10:02:40 Daughter Intracranial aneurysm [email or web address] Not available 2023 10:02:40 Medical History No medical history recorded. Gynecological History Statement/Question Response Date of Last Colonoscopy 04/04/2020 Most Recent Mammogram 04/04/2022 Most Recent Bone Density 02/09/2023 Obstetrics History GPAL:G 0 P 0 0 0 0 Past Encounters Encounter ID Performer Location Encounter Start Date Encounter Closed Date Diagnosis/Indication Diagnosis SNOMED-CT Code Diagnosis ICD10 Code Diagnosis Note [id number] Levon Finn MD [facility] [place] [address] [place] [address] 09/13/2021 00:00:00 09/13/2021 20:37:34 [id number] Levon Finn MD [facility] [place] [address] , [place] [address] 02/20/2022 00:00:00 02/20/2022 19:40:06 [id number] Levon Finn MD [facility] [place] [address] [place] [address] y , [place] [address] 03/13/2022 00:00:00 03/13/2022 21:21:20 [id number] Levon Finn MD [facility] [place] [address] , [place] [address] 03/24/2022 00:00:00 03/24/2022 16:09:55 [id number] Levon Finn MD [facility] [place] [address] , [place] [address] 08/02/2022 11:45:49 08/02/2022 11:50:52 Blood in urine 71688592 R31.9 [id number] Levon Finn MD [facility] [place] [address] , [place] [address] 09/12/2022 12:28:01 09/12/2022 14:01:05 Herpes zoster 1574828 B02.9 Use lidocaine patches to left side of face for pain. Has a mouth wash with viscus lidocaine from the dentist use this as often as needed.Jamin l start gabapentin for nerve pain. Finish out antibiotic s and valtrex. Use hydrocodon e for the pain. F/u in 3 weeks. [id number] Levon Finn MD [facility] [place] [place] [address] [place] [address] y , [place] [address] 09/26/2022 11:46:09 09/26/2022 12:19:56 Pain in bilateral legs 9336123755 0020788 M79.604 Herpes zoster 5258324 B0 2.9 Use lidocaine patches to left side of face for pain. Has a mouth wash with viscus lidocaine from the dentist use this as often as needed.Con tinue gabapentin and hydrocodon e for the pain as needed. [id number] Levon Finn MD [facility] [place] [address] 11/20/2022 08:51:59 11/20/2022 09:19:53 Spinal stenosis of lumbar region 74898441 M48.062 Continue gabapentin Muscle weakness 82650324 M62.81 Essential hypertension 42634492 I10 Hyperlipidemia 83836689 E78.5 [id number] Levon Finn MD [facility] [place] [address] 05/29/2023 11:55:21 05/29/2023 12:36:33 Adult health examination 170686236 Z00.00 Screening for disorder 944456538 Z13.9 Eruption 623051774 R21 Hypertensive disorder 38 570660 I10 Screening for malignant neoplasm of breast 757536650 Z12.39 Hyperlipidemia 29174803 E78.5 [id number] Levon Finn MD [facility] [place] [address] 06/05/2023 10:36:54 06/15/2023 15:09:58 Acute urinary tract infection 740925229 N39.0 [id number] Nelson Amado MD [facility] [place] [address] 10/26/2023 12:26:27 10/30/2023 08:06:27 Hyperlipidemia 76149623 E78.5 Hypertensive disorder 38 690170 I10 Lumbar radiculopathy 128 502720 M54.16 Snoring 40678924 R06.83 Acute urin steve tract infection 534764367 N39.0 Dry lips 348579927 K13.0 Strain of muscle of left shoulder 5233585521 4955333 S46.912A Cigarette smoker 9934429 7 F17.210 Spinal [place] nosis of lumbar region 56531230 M48.062 Vitamin D deficiency 347 31843 E55.9 [id number] iWlian Oliva MD [place] [address] 11/13/2023 10:03:07 11/14/2023 09:04:00 Sleep apnea 60412766 G47.30 G47.33 G47.61 G47.36 G47.31 [id number] Wilian Oliva MD [place] [address] 12/17/2023 10:01:18 12/18/2023 08:22:16 Obstructive sleep apnea syndrome 88764440 G47.33 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 D50.8 E83.42 [id number] Wilian Oliva MD [place] [address] 01/07/2024 12:03:58 01/07/2024 15:30:34 Obstructive sleep apnea syndrome 71064061 G47.33 Iron deficiency 14067520 E61.1 Health Concerns Section Related Observation LastModified by Organization Detai ls LastModified Time None Recorded Concern Status LastModified by Organization Details LastModified Time None Recorded Advance Directives Directive Y: Payers Encounter Date Sequence Insurance Name Policy Number Policy Contreras Covered Member ID Contreras Member ID Guarantor Name 06/05/2023 1 [employer] (MEDICARE REPLACEMENT/ ADVANTAGE - PPO) [id number] Delmy Mchugh [id number] Delmy Mchugh 10/26/2023 1 [employer] (MEDICARE REPLACEMENT/ ADVANTAGE - PPO) [id number] Delmy Mchugh [id number] Delmy Ayala Thirherrera 11/13/2023 1 [employer] (MEDICARE REPLACEMENT/ ADVANTAGE - PPO) [id number] Delmy Mchugh [id number] Jillanne E Thirion 12/17/2023 1 [employer] (MEDICARE REPLACEMENT/ ADVANTAGE - PPO) [id number] Jillanne E Thirion [id number] Jillanne E Thirion 01/07/2024 1 [employer] (MEDICARE REPLACEMENT/ ADVANTAGE - PPO) [id number] Jillanne E Thirion [id number] Jillanne E Thirion Notes Date Note Type Note Provider Name and Address Organization Details Recorded Time 06/05/2023 text/html [facility] [address], [address], [place], [address], [employer] 06/05/2023 13:50:49 10/26/2023 text/html 3 days gasping f or air; laminectomy in June. quit smoking Feb. has gained from 160 since surgery , was active [facility] [address], [place], [address], [employer] 11/14/2023 16:31:55 11/13/2023 text/html Primary care/Ref erring provider: Moise Maria PA-C At home, the patient sleeps from 10:30 pm to 6:30 am and wakes up without an alarm. Snoring: moderate, since . Snorting: no Choking: no Coughing: no Gasping: yes Gagging: no Sighing: no Witnessed apnea: yes Twitching or jerking of leg(s), arm(s), body, head: yes Teeth grinding: no Teeth clenching: no Sleeptalking: no Sleepwalking: no Sleep crying: no Bedwetting: no Tongue/lip/gum/cheek biting: no Sleeping with open mouth: yes Sleep paralysis: no Hypnagogic hallucinations: no Hypnopompic hallucinations: no Vivid dreams: no Difficulty with sleep onset: no Difficulty with sleep maintenance: yes Sleep interruptions: nocturia x 1 Patient wakes up with: fatigue, mobility impairment Daytime cataplexy: no Morning hypersomnolence: yes Afternoon hypersomnolence: yes Caffeine sources in diet: coffee 3 cups per day, soda 4 oz per day, chocolate 1/2 candy bar per week Associated medical and psychiatric conditions: Congestive heart failure: no Coronary artery disease: no Myocardial infarction: no Hypertension: yes Stroke: no Bronchial asthma: no Chronic obstructive pulmonary disease: no Depression: no Bipolar disorder: no Anxiety: no Panic disorder: no Posttraumatic stress disorder: no Attention deficit and hyperactivity disorder: no Obsessive Compulsive disorder: no Schizophrenia: no Schizoaffective disorder: no Personality disorder: no Chronic analgesic use: yes oxycodone Chronic sedative/hypnotic use: no EPWORTH SLEEPINESS SCALE (ESS) CHANCE OF DOZING SCORE 0 = would never doze 1 = slight chance of dozing 2 = moderate chance of dozing 3 = high chance of dozing SITUATION AND CHANCE OF DOZING Sitting and reading - 3 Watching television - 3 Sitting inactive in a public place (e.g. a theater or meeting) - 3 As a passenger in a car for an hour without a break - 3 Lying down to rest in the afternoon when circumstances permit - 3 Sitting and talking to someone - 0 Sitting quietly after lunch without alcohol - 3 In a car, while stopped for a few minutes in the traffic - 0 TOTAL SCORE 18 Subjectively, patient has a high chance of dozing. Wilian Oliva MD [address] [place] [address], [phone], [facility] [facility] [employer] 11/13/2023 10:59:01 12/17/2023 text/html Primary care/Ref erring provider: Moise Maria PA-C During the [facility] diagnostic sleep study on 12/11/23, sleep onset = 33 minutes, REM onset = 301 minutes, AHI = 2, REM AHI = 21, PLMI = 36. At home, the patient sleeps from 10:30 pm to 6:30 am and wakes up without an alarm. Snoring: moderate, since .Snorting: noChoking: noCoughing: noGasping: yesGagging: noSighing: noWitnessed apnea: yesTwitching or jerking of leg(s), arm(s), body, head: yesTeeth grinding: noTeeth clenching: noSleeptalking: noSleepwalking: noSleep crying: noBedwetting: noTongue/lip/gum/cheek biting: noSleeping with open mouth: yesSleep paralysis: noHypnagogic hallucinations: noHypnopompic hallucinations: noVivid dreams: noDifficulty with sleep onset: noDifficulty with sleep maintenance: yesSleep interruptions: nocturia x 1Patient wakes up with: fatigue, mobility impairmentDaytime cataplexy: noMorning hypersomnolence: yesAfternoon hypersomnolence: yesCaffeine sources in diet: coffee 3 cups per day, soda 4 oz per day, chocolate 1/2 candy bar per week Associated medical and psychiatric conditions:Congestive heart failure: noCoronary artery disease: noMyocardial infarction: noHypertension: yesStroke: noBronchial asthma: noChronic obstructive pulmonary disease: noDepression: noBipolar disorder: noAnxiety: noPanic disorder: noPosttraumatic stress disorder: noAttention deficit and hyperactivity disorder: noObsessive Compulsive disorder: noSchizophrenia: noSchizoaffective disorder: noPersonality disorder: noChronic analgesic use: yes oxycodoneChronic sedative/hypnotic use: no EPWORTH SLEEPINESS SCALE (ESS) CHANCE OF DOZING SCORE0 = would never doze1 = slight chance of dozing2 = moderate chance of dozing3 = high chance of dozing SITUATION AND CHANCE OF DOZINGSitting and reading - 2Watching television - 2Sitting inactive in a public place (e.g. a theater or meeting) - 2As a passenger in a car for an hour without a break - 2Lying down to rest in the afternoon when circumstances permit - 3Sitting and talking to someone - 0Sitting quietly after lunch without alcohol - 2In a car, while stopped for a few minutes in the traffic - 0TOTAL SCORE 13Subjectively, patient has a moderate chance of dozing. Wilian Oliva MD [address] [place] [address], [phone], [facility] [employer] 12/17/2023 10:34:09 01/07/2024 text/html Primary care/Ref erring provider: Moise Maria PA-C During the [facility] diagnostic sleep study on 12/11/23, sleep onset = 33 minutes, REM onset = 301 minutes, AHI = 2, REM AHI = 21. PLMI = 36 and she is here to go over her lab workup. At home, the patient sleeps from 10:30 pm to 6:30 am and wakes up without an alarm. Snoring: moderate, since .Snorting: noChoking: noCoughing: noGasping: yesGagging: noSighing: noWitnessed apnea: yesTwitching or jerking of leg(s), arm(s), body, head: yesTeeth grinding: noTeeth clenching: noSleeptalking: noSleepwalking: noSleep crying: noBedwetting: noTongue/lip/gum/cheek biting: noSleeping with open mouth: yesSleep paralysis: noHypnagogic hallucinations: noHypnopompic hallucinations: noVivid dreams: noDifficulty with sleep onset: noDifficulty with sleep maintenance: yesSleep interruptions: nocturia x 1Patient wakes up with: fatigue, mobility impairmentDaytime cataplexy: noMorning hypersomnolence: yesAfternoon hypersomnolence: yesCaffeine sources in diet: coffee 3 cups per day, soda 4 oz per day, chocolate 1/2 candy bar per week Associated medical and psychiatric conditions:Congestive heart failure: noCoronary artery disease: noMyocardial infarction: noHypertension: yesStroke: noBronchial asthma: noChronic obstructive pulmonary disease: noDepression: noBipolar disorder: noAnxiety: noPanic disorder: noPosttraumatic stress disorder: noAttention deficit and hyperactivity disorder: noObsessive Compulsive disorder: noSchizophrenia: noSchizoaffective disorder: noPersonality disorder: noChronic analgesic use: yes oxycodoneChronic sedative/hypnotic use: no EPWORTH SLEEPINESS SCALE (ESS) CHANCE OF DOZING SCORE0 = would never doze1 = slight chance of dozing2 = moderate chance of dozing3 = high chance of dozing SITUATION AND CHANCE OF DOZINGSitting and reading - 1Watching television - 2Sitting inactive in a public place (e.g. a theater or meeting) - 1As a passenger in a car for an hour without a break - 0Lying down to rest in the afternoon when circumstances permit - 3Sitting and talking to someone - 0Sitting quietly after lunch without alcohol - 1In a car, while stopped for a few minutes in the traffic - 0TOTAL SCORE 8Subjectively, patient has a slight chance of dozing. Wilian Oliva MD [address] [address], [place], [address], [place] [facility] 01/07/2024 12:56:11 OBGyn Episode No OBEpisode recorded.
--- OUTSIDE RECORDS SUMMARY | 2024-10-23 15:29 | XMS_ITS | Encounter Summary ---
Author Organization [facility] Healthcare Address [address] [place] [address] Care Team Providers Care Rn Radiology Name Role Phone Aria Flores NP Primary Care Provider Raphael Kirkland MD Unavailable Emerita Amado MD Unavailable [phone] Maria E Grier RN Unavailable [phone] Zuly Laguerre MD Unavailable [phone] Monique Lundy RN Unavailable [phone] Encounter Details Date Type Department Care Team (Late st Contact Info) Description 05/06/2024 Telephone [facility] Primary Care at [address] [place] [address] Aria Flores NP [address] [place] [address] [address] [place] [address] Social History Tobacco Use Types Packs/Day Years Used Date Smoking Tobacco: Former Cigarettes Q uit: 02/16/2023 Passive Smoke Exposure: Past Smokeless Tobacco: Never AUDIT-C Answer Date Recorded Q1: How often do you have a drink containing alcohol? Never 05/05/2024 Q2: How many drinks containi ng alcohol do you have on a typical day when you are drinking? Patient does not drink Q3: How often do you have si x or more drinks on one occasion? Never 05/05/2024 PHQ-2 Answer Date Recorded PHQ-2 Total Score (If total score is 3 or more points, staff should administer the PHQ-9) 3 04/22/2024 PHQ-9 Answer Date Recorded PHQ-9 Total Score 13 04/22/2024 Personal Safety Answer Date Recorded Have you ever been in or are you currently in a harmful physical or emotional relationship or is someone making you feel afraid or unsafe? 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 Gender Identity Female 03/03/2024 7:19 AM CDT Sexual Orientation Not on file documented as of this encounter Miscellaneous Notes * Telephone Encounter - Juana Gaspar - 05/06/2024 9:59 AM CST CLEANER documented in this encounter Plan of Treatment Upcoming Encounters Date Type Department Care Team (Late st Contact Info) Description 08/31/2025 8:25 AM CDT Hospital Encounter [address] [address] Zuly Laguerre MD [address] [place] [address] [address] [place] [address] [place] [address] 08/31/2025 8:25 AM CDT - 08/31/2025 8:55 AM CDT Surgery [address] [address] Zuly Laguerre MD [address] [place] [address] [address] [place] [address] [place] [address] COLONOSCOPY Scheduled Procedures Name Priority Associated Diagnoses [...] documented as of this encounter Care Teams Rn Radiology Relationship Specialty Start Date End Date Aria Flores NP PCP - General Family Medicine 01/24/24 Raphael Kirkland MD [address] [facility] [address] [place] [address] [place] [address] Consulting Physician Vascular Surgery 04/17/24 Emerita Amado MD [address] [facility] [address] [place] [address] Consulting Physician Interventional Cardiology 05/05/24 Maria E Grier RN [address] [place] [address] [address] [place] [address] [place] [address] Slab Off Mill Tender 05/21/24 06/02/24 Zuly Laguerre MD [address] [facility] [address] [place] [address] [place] [address] Consulting Physician Gastroenterology 08/31/24 Monique Lundy RN [address] [facility] [address] [place] [address] Slab Off Mill Tender 09/02/24 10/09/24 documented as of this encounter
--- OUTSIDE RECORDS SUMMARY | 2024-10-23 15:30 | XMS_ITS | Referral Summary ---
Author Organization [facility] Address [address] [place] [id number] Care Team Providers Care Practice Administrator Name Role Phone Aria Flores NP Primary Care Provider [phone] Raphael Kirkland MD Unavailable Emerita Amado MD Unavailable Zuly Laguerre MD Unavailable [phone] Encounters Date Type Department Care Team Description 10/22/2024 12:39 PM CDT - 10/22/2024 11:59 PM CDT Hospital Encounter [facility] Neurological Disorders Testing [address] [place] [address] Cramping of hands; Bilateral hand pain; Numbness and tingling in both hands Discharge Disposition: Discharge to home or self care 10/09/2024 Orders Only [facility] Sports Medicine and Primary Care at [address] [address] Diogo Silveira DO Subluxation of tendon of long head of right biceps (Primary Dx); Tear of right rotator cuff, unspecified tear extent, unspecified whether traumatic 10/09/2024 Results Follow-Up [facility] Sports Medicine and Primary Care at [address] [place] [address] Manda Duke MA MRI Shoulder Right WO Contrast 10/08/2024 Results Follow-Up [facility] Primary Care at [address] [address] Aria Flores NP CBC with auto differential, Iron profile w/ IBC, Differential, auto 10/08/2024 11:03 AM CDT - 10/08/2024 11:59 PM CDT Hospital Encounter [facility] [address] [place] [address] Subluxation of tendon of long head of right biceps Discharge Disposition: Discharge to home or self care 10/07/2024 11:03 AM CDT - 10/07/2024 11:59 PM [place] [address] Other iron deficiency anemia Discharge Disposition: Discharge to home or self care 10/07/2024 11:00 AM CDT Lab [facility] Outpatient Lab at [address] [phone] 09/29/2024 1:15 PM CDT Office Visit [facility] Sports Medicine and Primary Care at [address] [place] [address] Diogo Silveira DO Subluxation of tendon of long head of right biceps (Primary Dx); Cervical pain (neck) 09/19/2024 Telephone [facility] Gastroenterology at [address] [place] [address] Jossie Garcia 09/18/2024 Telephone [facility] Gastroenterology at [address] [place] [address] Kailyn Del Toro LPN 09/17/2024 Results Follow-Up [facility] Gastroenterology at [address] [place] [address] Zuly Laguerre MD Surgical pathology 09/03/2024 2:30 PM CDT Office Visit [facility] Primary Care at [address] [address] Aria Flores NP Hospital discharge follow-up (Primary Dx); Other iron deficiency anemia; Colitis 08/26/2024 4:12 PM CDT - 09/01/2024 1:20 PM CDT Hospital Encounter [address] [address] Vishnu Contreras MD Petters, Ekanga Sunday, MD Sargsyan, Narine, MD Colitis (Primary Dx); C. difficile enteritis; Dehydration Discharge Disposition: Discharge to home or self care 08/29/2024 11:52 AM CDT Anesthesia Event [address] [address] Celi Moscoso MD 08/29/2024 1:45 PM CDT - 08/29/2024 2:15 PM CDT Surgery [address] [address] Zuly Laguerre MD SIGMOID BIOPSY 08/26/2024 11:16 AM CDT - 08/26/2024 11:59 PM CDT Hospital Encounter [facility] Emergency, Room R Discharge Disposition: Discharge to home or self care 08/25/2024 Nurse Triage [facility] Primary Care at [address] [address] Aria Flores NP 08/20/2024 Results Follow-Up [facility] Primary Care at [address] [address] Aria Flores, ANTHONY CT Lung Cancer Screening 08/16/2024 11:00 AM CDT - 08/16/2024 11:59 PM CDT Hospital Encounter [address] [address] Personal history of nicotine dependence; Nicotine dependence, cigarettes, in remission Discharge Disposition: Discharge to home or self care 08/15/2024 Results Follow-Up [facility] Primary Care at [address] [address] Aria Flores NP US Thyroid 08/12/2024 3:02 PM CDT - 08/12/2024 11:59 PM CDT Hospital Encounter [address] [address] Thyroid nodule Discharge Disposition: Discharge to home or self care 08/11/2024 Telephone [facility] [address] [place] [address] Jewell Ferreira RN 2024 Orders Only [facility] Primary Care at [address] [address] Aria Flores NP 2024 Results Follow-Up [facility] Primary Care at [address] [address] Aria Flores, WHITE SOURER XR Hand Bilateral 3 or More Views of Each, Creatine kinase (CK), total, Urine culture Urine, bladder, Additional followed-up results: 5 from Last 3 Months Allergies Active Allergy Reactions Criticality Noted Date Comments Fluconazole Rash Medium 09/01/2024 Medications cetirizine (ZyrTEC) 10 mg tabletIndicatio ns:Seasonal Allergic Rhinitis Take 1 tablet (10 mg total) by mouth every morning Active PreviDent 5000 Booster Plus 1.1 % pasteIndication s:Dental Plaque Prevention Take 1 Application by mouth 2 (two) times a day 3 Active meclizine (ANTIVERT) 12.5 mg tablet Take 1 tablet (12.5 mg total) by mouth 2 (two) times a day as needed for dizziness for up to 14 days 0 4 Active Vitamin D3 50 mcg (2,000 unit) capsule Take 1 capsule (2,000 Units total) by mouth daily 100 capsule 3 4 Active aspirin (Enteric Coated Aspirin) 81 mg enteric coated tablet Take 1 tablet (81 mg total) by mouth daily 90 tablet 3 4 03/20/[address] (NexIUM 24HR) 20 mg capsule Take 1 capsule (20 mg total) by mouth daily before breakfast Active acetaminophen (TYLENOL) 500 mg tabletIndicatio ns:Pain Take 1 tablet (500 mg total) by mouth every 6 (six) hours as needed for pain Pt states she takes 3 tablets at night for pain as needed Active meloxicam (MOBIC) 15 mg tablet Take 1 tablet (15 mg total) by mouth daily 30 tablet 2 4 Active hydrALAZINE (APRESOLINE) 50 mg tabletIndicatio ns:hypertension Take 1 tablet (50 mg total) by mouth 2 (two) times a day 180 tablet 1 5 Active amLODIPine (NORVASC) 5 mg tabletIndicatio ns:hypertension Take 1 tablet (5 mg total) by mouth every morning 90 tablet 1 5 Active fluvastatin (LESCOL) 40 mg capsule Take 1 capsule (40 mg total) by mouth nightly Can hold on starting until August 90 capsule 3 5 07/15/19 26 Active Additional Information Patient not taking.Reported on 09/03/2024 potassium chloride ER (KLOR-CON) 20 mEq CR tablet Take 2 tablets (40 mEq total) by mouth daily for 7 days 14 tablet 5 Active dicyclomine (BENTYL) 10 mg capsule Take 1 capsule (10 mg total) by mouth 4 (four) times a day before meals and nightly Active Active Problems Problem Noted Date Diagnosed Date History of colonic polyps 09/19/2024 Diverticulosis 09/19/2024 Hospital discharge follow-up 09/03/2024 Assessment & Plan (09/03/2024 2:58 PM CDT): I have reviewed patient's admission records and discharge summary. Discussed relevant follow up testing and specialty follow-up needed. Referrals placed as needed. Will have patient follow up , october reschedule October appt to November or December for physical Absolute anemia 09/03/2024 Assessment & Plan (09/03/2024 3:01 PM CDT): History of iron deficiency. Will recheck CBC towards end of September. Colitis 08/26/2024 Assessment & Plan (09/03/2024 3:00 PM CDT): Improved. Finish flagyl. Finish prescribed 7 days lomotil, but may discontinue lomotil early if starts to have constipation. Has GI follow up scheduled in October Rotator cuff impingement syndrome of right shoul bev 07/15/2024 Assessment & Plan (07/15/2024 10:22 AM SECOND BUTLER): Advised by Dr. Silveira to do PT and advise her that if in 4-6 weeks there is limited to no improvement she may be a good candidate for a steroid injection. -continue her meloxicam -use the Nexium on the days that she needs to use the meloxicam. Dr. Silveira advised If there is any worsening before 4-6 weeks she should return to the office earlier Localized primary osteoarthritis of right should er region 07/15/2024 Assessment & Plan (07/15/2024 10:22 AM SECOND BUTLER): Advised by Dr. Silveira to do PT and advise her that if in 4-6 weeks there is limited to no improvement she may be a good candidate for a steroid injection. -continue her meloxicam -use the Nexium on the days that she needs to use the meloxicam. Dr. Silveira advised If there is any worsening before 4-6 weeks she should return to the office earlier Thyroid nodule 07/15/2024 Assessment & Plan (07/15/2024 12:43 PM SECOND BUTLER): 5mm nodule seen on thyroid from CT last April. Will order follow up ultrasound of thyroid Myalgia 07/15/2024 Assessment & Plan (07/23/2024 10:57 AM SECOND BUTLER): Hand cramping. NCS ordered. Referred to rheum due to positive NADIRA. -Rheumatoid factor: <10 -Erythrocyte sedimentation rate: 12 -CRP (acute phase): <3 -NADIRA: positive -JANIA: neg -dsDNA: <1.0 Assessment & Plan (07/15/2024 12:42 PM SECOND BUTLER): Will obtain arthritis labs Carotid stenosis, asymptomatic, right 05/19/2024 Dyspnea on exertion 05/15/2024 Carotid stenosis, right 04/23/2024 Assessment & Plan (04/29/2024 8:59 AM SECOND BUTLER): Asymptomatic high-grade right ICA stenosis, findings discussed with the patient and her family member, overall on her CT scan her carotid disease is low in the neck and heavily calcified, I have recommended a right CEA over a TCAR. Risks benefits alternatives discussed, risks including bleeding, infection, nerve injury, stroke, need further surgery. She wished to proceed. Continue risk factor modification with ASA statin therapy good blood pressure control. Pain in right arm 04/22/2024 Cervical radiculopathy 04/22/2024 Assessment & Plan (05/26/2024 1:59 PM SECOND BUTLER): Continue meloxicam. Reviewed MRI results with her. She does not have a appointment with pain management until August. Assessment & Plan (04/22/2024 10:11 AM SECOND BUTLER): Reviewed records from ER, previous MRI from 2016. Add prednisone taper Renewed pain meds, discussed short term use MRI cervical spine Refer to pain management Cervical stenosis of spinal canal 04/22/2024 History of right-sided carotid endarterectomy Assessment & Plan (07/15/2024 8:48 AM SECOND BUTLER): Continuing to do well status post right CEA. Current duplex shows the right internal carotid artery is patent. Shows moderate stenosis to the left internal carotid artery. Recommend continued aspirin statin therapy risk factor modifications and follow up in 6 months with vascular surgery for routine surveillance with carotid duplex. Sees vasc surg [place]. Assessment & Plan (07/03/2024 10:29 AM SECOND BUTLER): Continuing to do well status post right CEA. Continues to have mild numbness and pain to the site which she states is slowly improving. Denies any difficulty eating chewing or swallowing. Current duplex shows the right internal carotid artery is patent. Shows moderate stenosis to the left internal carotid artery. Recommend continued aspirin statin therapy risk factor modifications and follow up in 6 months for routine surveillance with carotid duplex. Assessment & Plan (05/26/2024 2:01 PM SECOND BUTLER): Healing. Follows with vascular surgery Assessment & Plan (04/09/2024 10:01 AM SECOND BUTLER): Severe greater than 80% stenosis of the right ICA and moderate 50-69% stenosis of the left ICA. Both are asymptomatic. Discussed management of carotid artery stenosis with the patient and her son with the recommendation typically for intervention when stenosis is greater than 80%. Continue risk factor modification with ASA statin therapy and good blood pressure control. CTA head and neck ordered for further evaluation. Airway obstruction 03/04/2024 Laryngopharyngeal reflux (LPR) 03/04/2024 History of lumbar laminectomy for spinal cord de compression 01/24/2024 Overview (01/24/2024): 2023 - Dr. Tapia [facility] Insomnia due to other mental disorder 01/24/2024 Assessment & Plan (07/15/2024 11:07 AM SECOND BUTLER): Trazodone helped some, but didn't like how it made her feel. Doesn't want to try any other sleep aid Assessment & Plan (05/26/2024 1:54 PM SECOND BUTLER): Will trial trazodone 25-50 mg at bedtime. Recurrent major depression 01/24/2024 Assessment & Plan (07/15/2024 8:44 AM SECOND BUTLER): Mood stable. Continue apresoline Sleep has been good. Continue trazodone Assessment & Plan (05/26/2024 2:02 PM SECOND BUTLER): Patient states she thinks her depression is related to her not sleeping. Assessment & Plan (02/22/2024 10:41 AM CDT): Chronic, about the same. Will continue lexapro. Has only taken it less than 2 weeks. I told her to send me a message after a few weeks and we could increase it to 10mg. Will have her f/u in 3 months. Assessment & Plan (01/24/2024 11:06 AM CDT): This is a new problem. States she has been crying frequently. Has been having a hard time ever since surgery last June. She use to be more active. Discussed starting a medication and pt is agreeable. Will start citalopram . Discussed starting dose and titration to full dose, possible SE and time frame for expected results. Call if any suicidal thoughts or questions concerning SE. Do not abruptly stop medication without calling office. Follow up in 3-4 weeks for recheck and continuation of medications. Mass of soft tissue of neck 01/24/2024 Assessment & Plan (02/22/2024 10:42 AM CDT): CT scan results pending. Will call patient when resulted, done on 02/19, so should be resulted any time now Assessment & Plan (01/24/2024 11:08 AM CDT): Will order CT soft tissue neck given mass is painful to palpation and she also feels short of breath and like it cuts her off with bending over or laying with head up. B12 deficiency 01/24/2024 Assessment & Plan (07/15/2024 8:44 AM SECOND BUTLER): Last B12 1,239. On the higher end. Decrease supplementation. Repeat labs ordered Assessment & Plan (01/24/2024 11:13 AM CDT): Hx B12 deficiency. No longer on oral medication. Will recheck B12 Iron deficiency 01/07/2024 Assessment & Plan (07/15/2024 10:17 AM SECOND BUTLER): Hgb 13.3 and Hct 41.5. continue to monitor and repeat CBC ordered. Assessment & Plan (02/22/2024 10:41 AM CDT): Improved. Will discontinue iron for now due to stomach upset. Will recheck iron profile and cbc in 3 months Assessment & Plan (01/24/2024 11:06 AM CDT): Hx of. Currently taking oral iron one daily. Orders to recheck iron level Vitamin D deficiency 08/16/2023 Assessment & Plan (07/15/2024 10:17 AM SECOND BUTLER): Last vit D 40. Continue 2000 units. Repeat Labs ordered. Not due for bone density scan at this time Assessment & Plan (01/24/2024 11:05 AM CDT): Hx of low vitamin D. Currently on oral otc. Will recheck vitamin D level. Lumbar radiculopathy 11/28/2022 Muscle weakness 11/20/2022 Assessment & Plan (05/26/2024 1:56 PM SECOND BUTLER): She is going to go back and see her orthopedic surgeon that she had back surgery with. I am not sure what the cause of her weakness in her lower legs is. I briefly discussed physical therapy. Weakness of both lower extremities 09/26/2022 Assessment & Plan (07/15/2024 11:06 AM SECOND BUTLER): MRI lumbar spine shows degenerative disc disease. Mild to severe. Patient has a message in to neurosurgeon - who ordered MRI. They had recommended an emg/ ncs of lower extremities if no improvement. Medrol dose katherine has helped with lower extremity weakness. She is also off of her statin right now. Herpes zoster 09/12/2022 Hypercholesteremia 04/25/2022 Assessment & Plan (07/15/2024 10:37 AM SECOND BUTLER): LDL was 108 in January. Pt reported that she is not taking her lipitor due to it causing muscle pain. Will start pt on fluvastatin as this one is the least likely to cause muscle pain. Repeat labs ordered Assessment & Plan (04/29/2024 8:59 AM SECOND BUTLER): Stable continue Lipitor Assessment & Plan (04/09/2024 10:01 AM SECOND BUTLER): Stable continue Lipitor Assessment & Plan (01/24/2024 11:05 AM CDT): Lipid abnormalities are stable, reviewed previous lipid levels in [facility]. Continue statin therapy. Lipitor (atorvastatin) Order for lipid panel was given today to be obtained. Pt voiced understanding of lab drawn and continuation of current medication regimen. Essential hypertension 04/25/2022 Assessment & Plan (07/15/2024 8:40 AM SECOND BUTLER): BP stable this visit. Continue norvasc. Monitor at home bp Assessment & Plan (05/26/2024 2:00 PM SECOND BUTLER): Blood pressure well-controlled. Continue amlodipine 5 mg. And hydralazine Assessment & Plan (04/29/2024 8:59 AM SECOND BUTLER): Stable continue amlodipine Assessment & Plan (04/09/2024 10:01 AM SECOND BUTLER): Stable continue amlodipine Assessment & Plan (01/24/2024 11:05 AM CDT): Stable/ Improved. Blood pressure is adequately controlled on amlodipine and hydralazine . We will not make any medication changes today. Will have her follow-up in 6 months for continued monitoring and management Quit smoking 04/25/2022 Overview (07/23/2024): 02/2023 50 * 12PPD Chronic back pain 04/25/2022 Assessment & Plan (04/25/2022 8:26 PM SECOND BUTLER): Pt has tenderness over the sacroiliac joint and lower back. This has been present for a long time now and has inhibited her overall function. She has decrease muscle tone that has likely led to her poor exercise tolerance. - will send for PT - will send for meloxicam for pain Resolved Problems Problem Noted Date Diagnosed Date Resolved Date Acute pain of right shoulder 05/26/2024 07/15/2024 Assessment & Plan (05/26/2024 2:00 PM SECOND BUTLER): We have focused on pain in her neck with radiculopathy however she was tender in her shoulder as well. She likely has osteoarthritis in her shoulder as well. Will get an x-ray of her right shoulder and refer to Orthopedics Pre-operative cardiovascular examination 05/15/2024 05/26/2024 Other specified soft tissue disorders 04/22/2024 05/26/2024 Sleep apnea 11/13/2023 01/24/2024 Neurogenic claudication 06/24/2023 082 07/2023 Cigarette smoker 02/09/2023 01/24/2024 Blood in urine 08/01/2022 01/24/2024 Weakness of both lower extremities 04/25/2022 01/24/2024 Numbness of upper extremity 03/08/2017 05/26/2024 Immunizations Immunization Administration Dates Next Due Influenza, Unspecified 06/04/2023(Deferr ed: Patient Refused),06/04/2022(Deferred: Patient Refused) Social History Tobacco Use Types Packs/Day Years Used Date Smoking Tobacco: Former Cigarettes 0.8 52.6 0 1970 - 02/16/2023 Passive Smoke Exposure: Past Smokeless Tobacco: Never Tobacco Cessation:Counseling Given: Not Answered [facility] Utilities Answer Date Recorded In the past 12 months has [employer], gas, oil, or water company threatened [...] often do you attend chur ch or sikh services? 1 to 4 times per year 09/02/2024 Do you belong to any clubs o r organizations such as mandaeism groups, unions, fraternal or athletic groups, or [...] time in the past 12 m [facility], were you homeless or living in a long-term (including now)? No 09/02/2024 Personal Safety Answer Date Recorded Have you ever been in or are you currently in a harmful physical or emotional relationship or is someone making you feel afraid or unsafe? Denies 08/26/2024 Comments No Sex and Gender Information Value Date Recorded Sex Assigned at Not on file Legal Sex Female 11:40 AM SECOND BUTLER Gender Identity Female 03/03/2024 7:19 AM CDT Sexual Orientation Not on file Last Filed Vital Signs Vital Sign Reading Time Taken Comments Blood Pressure 131/76 09/29/2024 1:18 PM CDT Pulse 55 09/29/2024 1:18 PM CDT Temperature 36.5 C (97.7 F) 09/03/2024 2:28 PM CDT Respiratory Rate 18 09/03/2024 2:28 PM CDT Oxygen Saturation 96% 09/03/2024 2:28 PM CDT Inhaled Oxygen Concentration - - Weight 75.8 kg (167 lb) 09/29/2024 1:18 PM CDT Height 162.6 cm (5' 4 ) 09/29/2024 1:18 PM CDT Body Mass Index 28.67 09/29/2024 1:18 PM CDT Plan of Treatment Upcoming Encounters Date Type Department Care Team (Late st Contact Info) Description 08/31/2025 8:25 AM CDT Hospital Encounter [facility] [address] [place] [address] Zuly Laguerre MD [address] [place] [address] [place] [id number] 08/31/2025 8:25 AM CDT - 08/31/2025 8:55 AM CDT Surgery [address] [address] Zuly Laguerre MD [address] [place] [address] [place] [id number] COLONOSCOPY Scheduled Procedures Name Priority Associated Diagnoses Date/Ti me COLONOSCOPY History of colonic polyps Diverticulosis 08/31/2025 8:25 AM CDT Medical Devices Implanted Type Area Repairer Shoe Sticks Device Identifier Shelf Expiration Date Model / Serial / Lot [employer] Patch Vascuguard 0.88cm [id number] - [id number] Implanted:Qty: 1 on 05/19/2024 by Raphael Kirkland MD at [facility] Right: Carotid [employer] [id number] 12/23/2025 [id number] / / [id number] Procedures Procedure Name Priority Date/Time Associated Diagnosis Comments MRI SHOULDER RIGHT WO CONTRAST Schedule Routine, Read Routine (OP Routine) 10/08/2024 12:02 PM CDT Subluxation of tendon of long head of right biceps DIFFERENTIAL AUTO Routine 10/07/2024 11: 03 AM CDT Other iron deficiency anemia IRON PROFILE W/ IBC Routine 10/07/2024 1 1:03 AM CDT Other iron deficiency anemia CBC WITH AUTO DIFFERENTIAL Routine 10/07/2024 11:03 AM CDT Other iron deficiency anemia EGFR Routine 09/01/2024 8:44 AM CDT COMPREHENSIVE METABOLIC PANEL Routine 09/01/2024 8:44 AM CDT EGFR Routine 08/31/2024 4:30 AM CDT COMPREHENSIVE METABOLIC PANEL Routine 08/31/2024 4:30 AM CDT EGFR Routine 08/30/2024 4:16 AM CDT DIFFERENTIAL AUTO Routine 08/30/2024 4:1 6 AM CDT CBC WITH AUTO DIFFERENTIAL Routine 08/30/2024 4:16 AM CDT COMPREHENSIVE METABOLIC PANEL Routine 08/30/2024 4:16 AM CDT SURGICAL PATHOLOGY STAT 08/29/2024 2: 53 PM CDT Colitis SIGMOID BIOPSY 08/29/2024 11:46 AM CDT Colitis FLEXIBLE SIGMOIDOSCOPY 10:41 AM CDT EGFR Routine 08/29/2024 5:21 AM CDT DIFFERENTIAL AUTO Routine 08/29/2024 5:2 1 AM CDT CBC WITH AUTO DIFFERENTIAL Routine 08/29/2024 5:21 AM CDT COMPREHENSIVE METABOLIC PANEL Routine 08/29/2024 5:21 AM CDT URINALYSIS, MICROSCOPIC ONLY Routine 08/28/2024 1:25 PM CDT URINALYSIS AND REFLEX TO MICROSCOPIC Routine 08/28/2024 1:25 PM CDT TISSUE TRANSGLUTAMINASE, IGA Routine 08/28/2024 4:19 AM CDT EGFR Routine 08/28/2024 4:19 AM CDT DIFFERENTIAL AUTO Routine 08/28/2024 4:1 9 AM CDT THYROID FUNCTION CASCADE Routine 08/28/2024 4:19 AM CDT CELIAC REFLEX PANEL Routine 08/28/2024 4 :19 AM CDT VITAMIN B12 Routine 08/28/2024 4:19 AM CDT CBC WITH AUTO DIFFERENTIAL Routine 08/28/2024 4:19 AM CDT MAGNESIUM Routine 08/28/2024 4:19 AM CDT COMPREHENSIVE METABOLIC PANEL Routine 08/28/2024 4:19 AM CDT RETICULOCYTES Add-On 08/27/2024 8:30 AM CDT FOLATE Add-On 08/27/2024 8:30 AM CDT IRON PROFILE W/ IBC Add-On 08/27/2024 8 :30 AM CDT EGFR Routine 08/27/2024 6:43 AM CDT DIFFERENTIAL AUTO Routine 08/27/2024 6:4 3 AM CDT CBC WITH AUTO DIFFERENTIAL Routine 08/27/2024 6:43 AM CDT MAGNESIUM Routine 08/27/2024 6:43 AM CDT COMPREHENSIVE METABOLIC PANEL Routine 08/27/2024 6:43 AM CDT CRYPTOSPORIDIUM AND GIARDIA ANTIGEN ASSAY Routine 08/26/2024 11:23 PM CDT C. DIFFICILE TESTING STAT 08/26/2024 11:23 PM CDT STOOL CULTURE STAT 08/26/2024 11:23 PM CDT URINALYSIS, MICROSCOPIC ONLY STAT 08/26/2024 10:23 PM CDT LIPASE Add-On 08/26/2024 10:23 PM CDT URINE CULTURE STAT 08/26/2024 10:23 PM CDT URINALYSIS AND REFLEX TO MICROSCOPIC AND CULTURE STAT 08/26/2024 10:[address] ABDOMEN PELVIS W CONTRAST ED 08/26/2024 8:22 PM CDT CRP (ACUTE PHASE) Add-On 08/26/2024 12: 49 PM CDT MANUAL DIFFERENTIAL STAT 08/26/2024 1 2:49 PM CDT EGFR STAT 08/26/2024 12:49 PM CDT CBC WITH AUTO DIFFERENTIAL STAT 08/26/2024 12:49 PM CDT COMPREHENSIVE METABOLIC PANEL STAT 08/26/2024 12:49 PM CDT INFLUENZA A/B, RSV, AND COVID-19 PCR STAT 08/26/2024 12:[address] LUNG CANCER SCREENING Schedule Routine, Read Routine (OP Routine) 08/16/2024 1:02 PM CDT Personal history of nicotine dependence Nicotine dependence, cigarettes, in remission US THYROID Schedule Routine, Read Routine (OP Routine) 08/12/2024 4:09 PM CDT Thyroid nodule HEPATITIS C ANTIBODY Routine 01/24/2024 11:32 AM CDT Encounter for hepatitis C screening test for low risk patient HM DEXA SCAN Routine 02/09/2023 MAMMOGRAPHY Routine 05/01/2022 COLONOSCOPY Routine 04/15/2020 from Last 3 Months or Most Recently Relevant to Health Maintenance Results * MRI Shoulder Right WO Contrast (10/08/2024 12:02 PM CDT) Anatomical Region Laterality Modality Upper Extremities Right Magnetic Reson ance 10/09/2024 8:45 AM CDT Narrative 10/09/2024 9:00 AM CDT EXAM DESCRIPTION: MRI SHOULDER RIGHT WO CONTRAST REASON FOR STUDY: r shoulder pain Right shoulder pain anterolateral pain since March 2024. Patient did 6 weeks of physical therapy and when she lifted a weight above her head in physical therapy she felt excruciating pain in her shoulder and bicep. No prior injury back in March 2024. TECHNIQUE: Multiplanar, multisequence MRI of the right shoulder was performed without contrast. COMPARISON: Right shoulder radiographs 05/26/2024 FINDINGS: Bones and Joint: There is subcortical cyst-like change in the greater tuberosity at the supraspinatus insertion. 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 Type 2 acromion. No acute fracture. Small glenohumeral joint effusion with mild synovial thickening and debris. Rotator Cuff: There is partial-thickness intrasubstance tear of the distal supraspinatus tendon at the footprint measuring 10 x 12 mm. No full-thickness rotator cuff tendon tear. There is partial-thickness articular surface tear of the superior subscapularis tendon. Biceps Tendon: The long head of biceps tendon is not seen intra-articularly therefore likely torn. Labrum: Inadequately evaluated without intraarticular contrast administration. Bursa: Small amount of fluid in the subacromial-subdeltoid bursa with borderline bursal thickening. Other: The suprascapular notch and quadrilateral space appear normal. Normal rotator cuff musculature volume. IMPRESSION: No full-thickness rotator cuff tendon tear. Partial-thickness intrasubstance supraspinatus tendon tear and partial-thickness articular surface subscapularis tendon tear. The long head of biceps tendon is not seen intra-articularly and should be torn. Mild subacromial-subdeltoid bursitis. THIS IS AN ELECTRONICALLY VERIFIED FINAL REPORT 10/09/2024 9:00 AM - Electronically signed by Jordan Wilson M.D. JR: Report ID: [id number] Reading Location: [id number] Procedure Note Jordan Wilson MD - 10/09/2024 EXAM DESCRIPTION: MRI SHOULDER RIGHT WO CONTRAST REASON FOR STUDY: r shoulder pain Right shoulder pain anterolateral pain since March 2024. Patient did 6weeks of physical therapy and when she lifted a weight above her head inphysical therapy she felt excruciating pain in her shoulder and bicep. No priorinjury back in March 2024. TECHNIQUE: Multiplanar, multisequence MRI of the right shoulder was performed without contrast. COMPARISON: Right shoulder radiographs 05/26/2024 FINDINGS: Bones and Joint: There is subcortical cyst-like change in the greater tuberosity at the supraspinatus insertion. 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 Type 2 acromion. No acute fracture. Smallglenohumeral joint effusion with mild synovial thickening and debris. Rotator Cuff: There is partial-thickness intrasubstance tear of thedistal supraspinatus tendon at the footprint measuring 10 x 12 mm. Nofull-thickness rotator cuff tendon tear. There is partial-thickness articular surfacetear of the superior subscapularis tendon. Biceps Tendon: The long head of biceps tendon is not seenintra-articularly therefore likely torn. Labrum: Inadequately evaluated without intraarticular contrastadministration. Bursa: Small amount of fluid in the subacromial-subdeltoid bursa with borderline bursal thickening. Other: The suprascapular notch and quadrilateral space appear normal.Normal rotator cuff musculature volume. IMPRESSION: No full-thickness rotator cuff tendon tear. Partial-thicknessintrasubstance supraspinatus tendon tear and partial-thickness articular surface subscapularis tendon tear. The long head of biceps tendon is not seen intra-articularly and shouldbe torn. Mild subacromial-subdeltoid bursitis. THIS IS AN ELECTRONICALLY VERIFIED FINAL REPORT 10/09/2024 9:00 AM - Electronically signed by Jordan Wilson M.D. JR: Report ID: [id number] Reading Location: [place] [address] Diogo Silveira DO IMG MRI PROCEDURES Fin al Result * Differential, auto (10/07/2024 11:03 AM CDT) Neutrophil abs 3.41 1.50 - 6.50 K/cumm Imm gran abs 0.02 0.00 - 0.10 K/cumm [facility] Lymphocyte abs 1.58 0.80 - 3.30 K/cumm [facility] Monocyte abs 0.62 0.20 - 0.80 K/cumm [facility] Eosinophil abs 0.19 0.00 - 0.50 K/cumm [facility] Basophil abs 0.07 0.00 - 0.10 K/cumm [facility] Neutrophil pct 58.0 % [facility] Comment: Interpretive Data Percent cell count reference ranges are not reported, since discordance with absolute values may lead to misinterpretation of CBC data. Current Interpretive Data was last revised on 2017. Imm gran pct 0.3 % [facility] Comment: Interpretive Data Percent cell count reference ranges are not reported, since discordance with absolute values may lead to misinterpretation of CBC data. Current Interpretive Data was last revised on 2017. Lymphocyte pct 26.8 % [facility] Comment: Interpretive Data Percent cell count reference ranges are not reported, since discordance with absolute values may lead to misinterpretation of CBC data. Current Interpretive Data was last revised on 2017. Monocyte pct 10.5 % [facility] Comment: Interpretive Data Percent cell count reference ranges are not reported, since discordance with absolute values may lead to misinterpretation of CBC data. Current Interpretive Data was last revised on 2017. Eosinophil pct 3.2 % [facility] Comment: Interpretive Data Percent cell count reference ranges are not reported, since discordance with absolute values may lead to misinterpretation of CBC data. Current Interpretive Data was last revised on 2017. Basophil pct 1.2 % [facility] Comment: Interpretive Data Percent cell count reference ranges are not reported, since discordance with absolute values may lead to misinterpretation of CBC data. Current Interpretive Data was last revised on 2017. Blood 10/07/2024 11:0 3 AM CDT 10/07/2024 6:17 PM CDT Aria Flores WHITE [employer]ER LAB BLOOD ORDERABLES Final Re sult Performing Organization Address [facility] Co de Phone Number [facility] [address] [place] [address] * (ABNORMAL) Iron profile w/ IBC (10/07/2024 11:03 AM CDT) Iron 48 35 - 145 mcg/dl TIBC 383 250 - 400 mcg/dL [facility] Transferrin saturation 13(L) 20 - 50 % [facility] Blood 10/07/2024 11:0 3 AM CDT 10/07/2024 6:17 PM CDT Aria Flores WHITE [employer]ER LAB BLOOD ORDERABLES Final Re sult Performing Organization Address [facility] de Phone Number SARAH [phone] [address] [place] [address] * (ABNORMAL) CBC with auto differential (10/07/2024 11:03 AM CDT) WBC 5.89 3.80 - 9.90 K/cumm Hgb 12.1 11.9 - 15.5 g/dL [facility] Hct 40.5 35.6 - 45.5 % [facility] Plt 403(H) 150 - 400 K/cumm [facility] MPV 10.1 9.1 - 12.3 fL [facility] RBC 4.45 3.90 - 5.20 M/cumm [facility] MCV 91.0 81.3 - 96.4 fL [facility] MCH 27.2 27.1 - 33.[address] [facility] MCHC 29.9(L) 32.3 - 35.7 g/dL [facility] RDW CV 18.0(H) 11.1 - 14.9 % SARAH RDW SD 60.0(H) 35.7 - 48.1 fL [facility] NRBC abs 0.00 0.00 - 0.01 K/cumm [facility] Blood 10/07/2024 11:0 3 AM CDT 10/07/2024 6:17 PM CDT Aria Flores NP LAB BLOOD ORDERABLES Final Re sult [facility] [place] [id number] [address] Department [place] [address] * eGFR (09/01/2024 8:44 AM CDT) eGFR 80 >=60 mL/min/1. 73 m2 Comment: Interpretive Data Reference Interval Normal >/= 90 mL/min/1.73m2 Mildly decreased* 60 - 89 mL/min/1.73m2 Mildly to moderately decreased 45 - 59 mL/min/1.73m2 Moderately to severely decreased 30 - 44 mL/min/1.73m2 Severely decreased 15 - 29 mL/min/1.73m2 Kidney Failure < 15 mL/min/1.73m2 *Relative to young adult level Estimated glomerular filtration rate is determined by the 2020 CKD-EPI equation recommended by the National Kidney Foundation (A Unifying Approach to GFR Estimation: Recommendations of the NKF-ASK Task Force on Reassessing the Inclusion of Race in Diagnosing Kidney Disease, JASN 2020). The CKD-EPI equation should not be used for patients with unstable renal function and has not been validated in children and those over 70. Current interpretive data was last reviewed 2021. Blood 09/01/2024 8:44 AM CDT 09/01/2024 9:11 AM CDT Zuly Laguerre MD LAB BLOOD ORDERABLES Final Result [facility] ([facility]) 1 [facility] Department [place] [address] * (ABNORMAL) Comprehensive metabolic panel (09/01/2024 8:44 AM CDT) Sodium 135 135 - 145 mmol/L Potassium, pl 4.1 3.3 - 4.9 mmol/L [facility] ([facility]) Chloride 100 97 - 110 mmol/L [facility] ([facility]) CO2 21(L) 22 - 32 mmol/L [facility] ([facility]) Anion gap 15 2 - 15 mmol/L [facility] ([place]) BUN 12 6 - 25 mg/dL [facility] ([place]) Creatinine 0.77 0.60 - 1.10 mg/dL [facility] ([facility]) Glucose 167 70 - 199 mg/dL [facility] ([facility]) Comment: Interpretive Data Fasting glucose >/= 126 mg/dl is diagnostic for diabetes. Fasting is defined as no caloric intake for at least 8 hours. Fasting glucose between 100 mg/dl to 125 mg/dl is diagnostic of prediabetes. In a patient with classic symptoms of hyperglycemia or hyperglycemic crisis, a random glucose >/= 200 mg/dl is diagnostic for diabetes. In the absence of unequivocal hyperglycemia, results should be confirmed by repeat testing. The classification and Diagnosis of Diabetes Diabetes Care 2021; 46: S19-S40. Current interpretive data was last revised 2022. Calcium 9.9 8.5 - 10.3 mg/dL [facility] ([place]) Bilirubin, total 0.3 0.1 - 1.2 mg/dL [facility] ([facility]) Protein, pl 7.2 6.5 - 8.5 g/dL [facility] ([facility]) Albumin 4.1 3.5 - 5.0 g/dL [facility] ([facility]) Alk phos 98 40 - 130 Units/L [facility] ([facility]) ALT 15 7 - 45 Units/L [facility]) AST 20 10 - 45 Units/L [facility] ([facility]) Blood 09/01/2024 8:44 AM CDT 09/01/2024 9:11 AM CDT Zuly Laguerre MD LAB BLOOD ORDERABLES Final Result [facility] ([facility]) 1 [place] [address] * eGFR (08/31/2024 4:30 AM CDT) eGFR 76 >=60 mL/min/1. 73 m2 Comment: Interpretive Data Reference Interval Normal >/= 90 mL/min/1.73m2 Mildly decreased* 60 - 89 mL/min/1.73m2 Mildly to moderately decreased 45 - 59 mL/min/1.73m2 Moderately to severely decreased 30 - 44 mL/min/1.73m2 Severely decreased 15 - 29 mL/min/1.73m2 Kidney Failure < 15 mL/min/1.73m2 *Relative to young adult level Estimated glomerular filtration rate is determined by the 2020 CKD-EPI equation recommended by the National Kidney Foundation (A Unifying Approach to GFR Estimation: Recommendations of the NKF-ASK Task Force on Reassessing the Inclusion of Race in Diagnosing Kidney Disease, JASN 2020). The CKD-EPI equation should not be used for patients with unstable renal function and has not been validated in children and those over 70. Current interpretive data was last reviewed 2021. Blood 08/31/2024 4:30 AM CDT 08/31/2024 5:03 AM CDT us Zuly Laguerre MD LAB BLOOD ORDERABLES Final Result [facility] ([facility]) 1 [facility] [place] [address] * (ABNORMAL) Comprehensive metabolic panel (08/31/2024 4:30 AM CDT) Sodium 136 135 - 145 mmol/L Potassium, pl 3.8 3.3 - 4.9 mmol/L [facility] ([facility]) Chloride 102 97 - 110 mmol/L [facility] ([facility]) CO2 20(L) 22 - 32 mmol/L [facility] ([facility]) Anion gap 14 2 - 15 mmol/L [facility] ([facility]) BUN 9 6 - 25 mg/dL [facility] ([facility]) Creatinine 0.80 0.60 - 1.10 mg/dL [facility] ([facility]) Glucose 98 70 - 199 mg/dL [facility] ([facility]) Comment: Interpretive Data Fasting glucose >/= 126 mg/dl is diagnostic for diabetes. Fasting is defined as no caloric intake for at least 8 hours. Fasting glucose between 100 mg/dl to 125 mg/dl is diagnostic of prediabetes. In a patient with classic symptoms of hyperglycemia or hyperglycemic crisis, a random glucose >/= 200 mg/dl is diagnostic for diabetes. In the absence of unequivocal hyperglycemia, results should be confirmed by repeat testing. The classification and Diagnosis of Diabetes Diabetes Care 2021; 46: S19-S40. Current interpretive data was last revised 2022. Calcium 9.6 8.5 - 10.3 mg/dL [facility] ([facility]) Bilirubin, total 0.3 0.1 - 1.2 mg/dL [facility] ([facility]) Protein, pl 6.9 6.5 - 8.5 g/dL [facility] ([facility]) Albumin 4.0 3.5 - 5.0 g/dL [facility] ([facility]) Alk phos 98 40 - 130 Units/L [facility] ([facility]) ALT 15 7 - 45 Units/L [facility]) AST 25 10 - 45 Units/L [facility] ([facility]) Blood 08/31/2024 4:30 AM CDT 08/31/2024 5:03 AM CDT us Zuly Laguerre MD LAB BLOOD ORDERABLES Final Result [facility] ([facility]) 1 [facility] Department of Laboratories [place], [place] [id number] * eGFR (08/30/2024 4:16 AM CDT) eGFR 74 >=60 mL/min/1. 73 m2 Comment: Interpretive Data Reference Interval Normal >/= 90 mL/min/1.73m2 Mildly decreased* 60 - 89 mL/min/1.73m2 Mildly to moderately decreased 45 - 59 mL/min/1.73m2 Moderately to severely decreased 30 - 44 mL/min/1.73m2 Severely decreased 15 - 29 mL/min/1.73m2 Kidney Failure < 15 mL/min/1.73m2 *Relative to young adult level Estimated glomerular filtration rate is determined by the 2020 CKD-EPI equation recommended by the National Kidney Foundation (A Unifying Approach to GFR Estimation: Recommendations of the NKF-ASK Task Force on Reassessing the Inclusion of Race in Diagnosing Kidney Disease, JASN 2020). The CKD-EPI equation should not be used for patients with unstable renal function and has not been validated in children and those over 70. Current interpretive data was last reviewed 2021. Blood 08/30/2024 4:16 AM CDT 08/30/2024 4:57 AM CDT us Zuly Laguerre MD LAB BLOOD ORDERABLES Final Result [facility] ([place] 1 [facility] Department [place] [address] * (ABNORMAL) Differential, auto (08/30/2024 4:16 AM CDT) Neutrophil abs 4.2 1.5 - 6.5 K/cumm Imm gran abs 0.1 0.0 - 0.1 K/cumm [facility] ([facility]) Lymphocyte abs 1.8 0.8 - 3.3 K/cumm [facility] ([facility]) Monocyte abs 1.1(H) 0.2 - 0.8 K/cumm [facility] ([facility]) Eosinophil abs 2.2(H) 0.0 - 0.5 K/cumm [facility] ([facility]) Basophil abs 0.1 0.0 - 0.1 K/cumm [facility] ([facility]) Neutrophil pct 44.8 % [facility] ([facility]) Comment: Interpretive Data Percent cell count reference ranges are not reported, since discordance with absolute values may lead to misinterpretation of CBC data. Current Interpretive Data was last revised on 2017. Imm gran pct 0.7 % [facility] ([facility]) Comment: Interpretive Data Percent cell count reference ranges are not reported, since discordance with absolute values may lead to misinterpretation of CBC data. Current Interpretive Data was last revised on 2017. Lymphocyte pct 19.5 % [facility] ([facility]) Comment: Interpretive Data Percent cell count reference ranges are not reported, since discordance with absolute values may lead to misinterpretation of CBC data. Current Interpretive Data was last revised on 2017. Monocyte pct 11.3 % [facility] ([facility]) Comment: Interpretive Data Percent cell count reference ranges are not reported, since discordance with absolute values may lead to misinterpretation of CBC data. Current Interpretive Data was last revised on 2017. Eosinophil pct 23.2 % [facility] ([facility]) Comment: Interpretive Data Percent cell count reference ranges are not reported, since discordance with absolute values may lead to misinterpretation of CBC data. Current Interpretive Data was last revised on 2017. Basophil pct 0.5 % [facility] ([facility]) Comment: Interpretive Data Percent cell count reference ranges are not reported, since discordance with absolute values may lead to misinterpretation of CBC data. Current Interpretive Data was last revised on 2017. Blood 08/30/2024 4:16 AM CDT 08/30/2024 4:56 AM CDT Zuly Laguerre MD LAB BLOOD ORDERABLES Final Result [facility] ([place]) 1 [facility] Department [place] [address] * (ABNORMAL) CBC with auto differential (08/30/2024 4:16 AM CDT) WBC 9.3 3.8 - 9.9 K/cumm Hgb 10.5(L) 11.9 - 15.5 g/dL [facility] ([facility]) Hct 33.2(L) 35.6 - 45.5 % [facility] ([facility]) Plt 319 150 - 400 K/cumm [facility] ([facility]) MPV 9.8 9.1 - 12.3 fL [facility] ([facility]) RBC 3.82(L) 3.90 - 5.20 M/cumm [facility] ([facility]) MCV 86.9 81.3 - 96.4 fL [facility] ([facility]) MCH 27.5 27.1 - 33.3 pg [facility] ([facility]) MCHC 31.6(L) 32.3 - 35.7 g/dL [facility] ([facility]) RDW CV 15.6(H) 11.1 - 14.9 % [facility] ([facility]) RDW SD 48.9(H) 35.7 - 48.1 fL [facility] ([facility]) NRBC abs 0.02(H) 0.00 - 0.01 K/cumm [facility] ([facility]) Blood 08/30/2024 4:16 AM CDT 08/30/2024 4:56 AM CDT Zuly Laguerre MD LAB BLOOD ORDERABLES Final Result [facility] 1 [facility] Department [place] [address] * (ABNORMAL) Comprehensive metabolic panel (08/30/2024 4:16 AM CDT) Sodium 140 135 - 145 mmol/L Potassium, pl 3.0(C) 3.3 - 4.9 mmol/L [facility] ([facility]) Comment:Critical Result call ed by [email or web address] at 2024-08-30 05:41:27. Result Read Back by Jossie Ford RN [facility] Chloride 102 97 - 110 mmol/L [facility] ([facility]) CO2 24 22 - 32 mmol/L [facility] ([facility]) Anion gap 14 2 - 15 mmol/L [facility] ([facility]) BUN 6 6 - 25 mg/dL [facility] ([facility]) Creatinine 0.82 0.60 - 1.10 mg/dL [facility] ([facility]) Glucose 87 70 - 199 mg/dL [facility] ([facility]) Comment: Interpretive Data Fasting glucose >/= 126 mg/dl is diagnostic for diabetes. Fasting is defined as no caloric intake for at least 8 hours. Fasting glucose between 100 mg/dl to 125 mg/dl is diagnostic of prediabetes. In a patient with classic symptoms of hyperglycemia or hyperglycemic crisis, a random glucose >/= 200 mg/dl is diagnostic for diabetes. In the absence of unequivocal hyperglycemia, results should be confirmed by repeat testing. The classification and Diagnosis of Diabetes Diabetes Care 2021; 46: S19-S40. Current interpretive data was last revised 2022. Calcium 9.1 8.5 - 10.3 mg/dL [facility] ([place]) Bilirubin, total 0.3 0.1 - 1.2 mg/dL [facility] ([facility]) Protein, pl 6.4(L) 6.5 - 8.5 g/dL [facility] ([facility]) Albumin 3.7 3.5 - 5.0 g/dL [facility] ([facility]) Alk phos 92 40 - 130 Units/L [facility] ([facility]) ALT 11 7 - 45 Units/L [facility] ([facility]) AST 23 10 - 45 Units/L [facility] ([facility]) Blood 08/30/2024 4:16 AM CDT 08/30/2024 4:57 AM CDT Zuly Laguerre MD LAB BLOOD ORDERABLES Final Result [facility] ([place]) [address] [place] [address] Department [place] [address] * Surgical pathology (08/29/2024 2:53 PM CDT) Tissue specimen (specimen) (Colon, Biopsy) 08/29/2024 12:07 PM CDT Narrative PATHOLOGY [facility] ([place]) - 09/01/2024 2:50 PM CDT EPIC results best viewed via link to PDF [facility] Department of Pathology [address] [place] [id number] Note to Patients: This report may contain a detailed description of human tissue sent by a health care provider to the laboratory for pathologic evaluation. The content of this report is essential for diagnosis and may provide important critical findings. This information may be unfamiliar to patients to review without a medical professional present. It is advised that the patient review this report in the presence of a health care provider who can answer questions and explain the details. Final Report Patient Name: CASA MEDINA Address: [address] [place] [address] [address], [place] [address] Gender: F : 1950 (Age: 74) Service: Medical Location: [facility] Hospital #: [id number] Patient Type: [facility] Taken: 08/29/2024 Received: 08/29/2024 Accessioned: 08/29/2024 Reported: 09/01/2024 Physician(s):Dr. Zuly Laguerre M.D. Diagnosis: Colon, random, biopsy: - Colonic mucosa with no significant histopathologic abnormalities. Theodore Nielson MD Report Electronically Reviewed and Signed Out By Theodore Nielson MD 09/01/2024 14:50:36 Specimen(s) Received: A: Random colon biopsy Microscopic Description: Microscopic examination shows fragments of colonic mucosa with no significant histopathologic abnormalities. There is no significant active inflammation. There is no significant intraepithelial lymphocytosis nor is there thickening of the subepithelial collagen layer. There is no evidence of dysplasia or malignancy. Clinical History: Colitis. Sigmoid biopsy. Gross Description: The specimen is submitted in a single formalin filled container labeled CASA MEDINA and random colon biopsy . It is 5 fragments of hernadez mucosa, 2-3 mm. All in one cassette. Pablo Corea/Mel Masters M.D. REPORT IMAGES AND SCANNED DOCUMENTS, IF INCLUDED, ONLY VIEWABLE IN PDF VERSION OF REPORT The performance characteristics of some immunohistochemical stains, fluorescence in-situ hybridization tests and immunophenotyping by flow cytometry cited in this report (if any) were determined by the Surgical Pathology Department at [facility] as part of an ongoing quality assurance lead program and in compliance with federally mandated regulations drawn from the Clinical Laboratory Improvement Act of 1988 (CLIA '88). Some of these tests rely on the use of analyte specific reagents and are subject to specific labeling requirements by the US Food and Drug Administration. Such diagnostic tests may only be performed in a facility that is certified by the Department of Health and Human Services as a high complexity laboratory under CLIA '88. The FDA has determined that such clearance or approval is not necessary. This test is used for clinical purposes. It should not be regarded as investigational or for research. Nevertheless, federal rules concerning the medical use of analyte specific reagents require that the following disclaimer be attached to the report: This test was developed and its performance characteristics determined by the Surgical Pathology Department [facility]. It has not been cleared or approved by the U. S. Food and Drug Administration. Note for decalcified specimens: This assay has not been validated on decalcified tissues. Results should be interpreted with caution given the possibility of false negativity on decalcified specimens Zuly Laguerre MD LAB PATHOLOGY ORDERABLES F inal Result PATHOLOGY [facility] ([place]) [address] [place], [place] [id number] * Flexible Sigmoidoscopy (08/29/2024 10:41 AM CDT) Anatomical Region Laterality Modality Other Narrative Procedure Note Zuly Laguerre MD - 08/29/2024 10:41 AM CDT [facility] Patient Name: Casa Medina Procedure Date: 08/29/2024 10:41 AM Date of : 1950 Admit Type: Inpatient Age: 74 Gender: Female Attending MD: Zuly Laguerre M.D. Room: [facility] ENDOSCOPY ROOM 1 Note Status: Finalized Patient Profile: This is a 74 year old female. Patient admitted with significant unexplained diarrhea. Sigmoidoscopy for evaluation Procedure: Flexible Sigmoidoscopy Indications: Diarrhea Referring MD: Alirio Amaor Providers: Zuly Laguerre M.D. Impression: - The entire examined colon is normal. Biopsied. - Diverticulosis in the distal sigmoid colon. - Internal and external hemorrhoids. Recommendation: Continue present medications. Lomotil 3 times a day as needed. Oral Flagyl for 7 days Dicyclomine 4 times daily Follow-up progress Follow up pathology report Medicines: Monitored Anesthesia Care Complications: No immediate complications. Estimated Blood Loss: Estimated blood loss: none. Procedure: Pre-Anesthesia Assessment: - Prior to the procedure, a History and Physicalwas performed, and patient medications and allergieswere reviewed. The patient's tolerance of previous anesthesia was also reviewed. The risks andbenefits of the procedure and the sedation options and risks were discussed with the patient. All questions were answered, and informed consent was obtained. Prior Anticoagulants: The patient has taken noanticoagulant or antiplatelet agents. ASA Grade Assessment: Per anesthesia note and evaluation. After reviewing the risks and benefits, the patient was deemed in satisfactory condition to undergo the procedure. The benefits, risks, and alternatives to theprocedure and sedation were discussed and informed consentwas obtained. The Endoscope [id number] was introduced through the anus and advanced to the the left transverse colon. The flexible sigmoidoscopywas accomplished without difficulty. The patienttolerated the procedure well. The quality of the bowel preparation was adequate. Findings: Large external hemorrhoids were found on perianal exam. The colon (entire examined portion) appeared normal all the way tothe distal transverse colon. Biopsies for histology were taken with acold forceps from the entire colon for evaluation of microscopiccolitis. A few small-mouthed diverticula were found in the distal sigmoidcolon. No inflammatory changes noted Internal hemorrhoids were found during retroflexion. The hemorrhoids were medium-sized Electronically signed by Zuly Laguerre M.D. Zuly Laguerre M.D. 08/29/2024 12:24:25 PM Number of Addenda: 0 Note Initiated On: 08/29/2024 10:41 AM Procedure Code(s): --- Professional --- 20873, Sigmoidoscopy, flexible; with biopsy, single or multiple Diagnosis Code(s): --- Professional --- K64.8, Other hemorrhoids R19.7, Diarrhea, unspecified K57.30, Diverticulosis of large intestine without perforation orabscess without bleeding CPT copyright 2020 [employer]. All rights reserved. The codes documented in this report are preliminary and upon agriculture laboratory technician reviewmay be revised to meet current compliance requirements. Recognized by the [employer] for promoting quality in endoscopy Zuly Laguerre MD ENDOSCOPY PROCEDURES Final Result * eGFR (08/29/2024 5:21 AM CDT) eGFR 90 >=60 mL/min/1. 73 m2 Comment: Interpretive Data Reference Interval Normal >/= 90 mL/min/1.73m2 Mildly decreased* 60 - 89 mL/min/1.73m2 Mildly to moderately decreased 45 - 59 mL/min/1.73m2 Moderately to severely decreased 30 - 44 mL/min/1.73m2 Severely decreased 15 - 29 mL/min/1.73m2 Kidney Failure < 15 mL/min/1.73m2 *Relative to young adult level Estimated glomerular filtration rate is determined by the 2020 CKD-EPI equation recommended by the National Kidney Foundation (A Unifying Approach to GFR Estimation: Recommendations of the NKF-ASK Task Force on Reassessing the Inclusion of Race in Diagnosing Kidney Disease, JASN 2020). The CKD-EPI equation should not be used for patients with unstable renal function and has not been validated in children and those over 70. Current interpretive data was last reviewed 2021. Blood 08/29/2024 5:21 AM CDT 08/29/2024 6:08 AM CDT us Nanette Juárez MD LAB BLOOD ORDERABLES Fi nal Result [facility] ([place]) 1 [facility] Department [place] [address] * (ABNORMAL) Differential, auto (08/29/2024 5:21 AM CDT) Neutrophil abs 5.0 1.5 - 6.5 K/cumm Imm gran abs 0.1 0.0 - 0.1 K/cumm [facility] ([place]) Lymphocyte abs 2.0 0.8 - 3.3 K/cumm [facility] ([place]) Monocyte abs 0.9(H) 0.2 - 0.8 K/cumm [facility] ([place]) Eosinophil abs 3.3(H) 0.0 - 0.5 K/cumm [facility] ([place]) Basophil abs 0.1 0.0 - 0.1 K/cumm [facility] ([place]) Neutrophil pct 44.2 % [facility] ([place]) Comment: Interpretive Data Percent cell count reference ranges are not reported, since discordance with absolute values may lead to misinterpretation of CBC data. Current Interpretive Data was last revised on 2017. Imm gran pct 0.6 % [facility] ([place]) Comment: Interpretive Data Percent cell count reference ranges are not reported, since discordance with absolute values may lead to misinterpretation of CBC data. Current Interpretive Data was last revised on 2017. Lymphocyte pct 17.6 % [facility] ([place]) Comment: Interpretive Data Percent cell count reference ranges are not reported, since discordance with absolute values may lead to misinterpretation of CBC data. Current Interpretive Data was last revised on 2017. Monocyte pct 8.2 % [facility] ([place]) Comment: Interpretive Data Percent cell count reference ranges are not reported, since discordance with absolute values may lead to misinterpretation of CBC data. Current Interpretive Data was last revised on 2017. Eosinophil pct 29.0 % [facility] ([place]) Comment: Interpretive Data Percent cell count reference ranges are not reported, since discordance with absolute values may lead to misinterpretation of CBC data. Current Interpretive Data was last revised on 2017. Basophil pct 0.4 % [facility] ([place]) Comment: Interpretive Data Percent cell count reference ranges are not reported, since discordance with absolute values may lead to misinterpretation of CBC data. Current Interpretive Data was last revised on 2017. Blood 08/29/2024 5:21 AM CDT 08/29/2024 6:08 AM CDT us Nanette Juárez MD LAB BLOOD ORDERABLES Fi nal Result [facility] ([place]) 1 [facility] Department [place] [address] * (ABNORMAL) CBC with auto differential (08/29/2024 5:21 AM CDT) WBC 11.2(H) 3.8 - 9.9 K/cumm Hgb 10.5(L) 11.9 - 15.5 g/dL [facility] ([place]) Hct 33.2(L) 35.6 - 45.5 % [facility] ([place]) Plt 324 150 - 400 K/cumm [facility] ([place]) MPV 10.0 9.1 - 12.3 fL [facility] ([place]) RBC 3.77(L) 3.90 - 5.20 M/cumm [facility] ([place]) MCV 88.1 81.3 - 96.4 fL [facility] ([place]) MCH 27.9 27.1 - 33.3 pg [facility] ([place]) MCHC 31.6(L) 32.3 - 35.7 g/dL [facility] ([place]) RDW CV 15.2(H) 11.1 - 14.9 % [facility] [place]) RDW SD 48.5(H) 35.7 - 48.1 fL [facility] ([place]) NRBC abs 0.00 0.00 - 0.01 K/cumm [facility] ([place]) Blood 08/29/2024 5:21 AM CDT 08/29/2024 6:08 AM CDT us Zuly Laguerre MD LAB BLOOD ORDERABLES Final Result [facility] ([place]) 1 [facility] Department [place] [address] * (ABNORMAL) Comprehensive metabolic panel (08/29/2024 5:21 AM CDT) Sodium 140 135 - 145 mmol/L Potassium, pl 3.4 3.3 - 4.9 mmol/L [facility] ([place]) Chloride 105 97 - 110 mmol/L [facility] [place]) CO2 23 22 - 32 mmol/L [facility] [place]) Anion gap 12 2 - 15 mmol/L [facility] ([place]) BUN 5(L) 6 - 25 mg/dL [facility] [place]) Creatinine 0.68 0.60 - 1.10 mg/dL [facility] ([place]) Glucose 102 70 - 199 mg/dL [facility] ([place]) Comment: Interpretive Data Fasting glucose >/= 126 mg/dl is diagnostic for diabetes. Fasting is defined as no caloric intake for at least 8 hours. Fasting glucose between 100 mg/dl to 125 mg/dl is diagnostic of prediabetes. In a patient with classic symptoms of hyperglycemia or hyperglycemic crisis, a random glucose >/= 200 mg/dl is diagnostic for diabetes. In the absence of unequivocal hyperglycemia, results should be confirmed by repeat testing. The classification and Diagnosis of Diabetes Diabetes Care 2021; 46: S19-S40. Current interpretive data was last revised 2022. Calcium 8.9 8.5 - 10.3 mg/dL [facility] ([place]) Bilirubin, total <0.2 0.1 - 1.2 mg/dL [facility] ([place]) Protein, pl 6.2(L) 6.5 - 8.5 g/dL [facility] ([place]) Albumin 3.5 3.5 - 5.0 g/dL [facility] ([place]) Alk phos 93 40 - 130 Units/L [facility] [place]) ALT 9 7 - 45 Units/L [facility] [place]) AST 20 10 - 45 Units/L [facility] ([place]) Blood 08/29/2024 5:21 AM CDT 08/29/2024 6:08 AM CDT us Zuly Laguerre MD LAB BLOOD ORDERABLES Final Result [facility] ([place]) 1 [facility] Department [place] [address] * (ABNORMAL) Urinalysis reflex to microscopic (08/28/2024 1:25 PM CDT) Color, ur Straw Yellow Clarity, ur Clear Clear [facility] ([place]) Specific gravity, ur 1.005 1.003 - 1.030 [facility] ([place]) pH, urine 6.0 [facility] ([place]) Comment: Interpretive Data U rine pH is affected by diet, medications, systemic acid-base disturbances, and renal tubular function. pH may affect urinary stone formation. For example, urine pH below 6.0 may help reduce the tendency for calcium phosphate stones and pH greater than 6.0 may reduce the tendency for uric acid stone formation. Source: [facility] Current Interpretive Data was last revised on 2017 Protein, ur ql Negative Negative [facility] ([place]) Glucose, ur ql Negative Negative [facility] ([place]) Ketones, ur Trace Negative [facility] ([place]) Bilirubin, ur Negative Negative [facility] ([place]) Blood, ur Trace(A) Negative [facility] ([place]) Urobilinogen, ur <2.0 <2.0 mg/dL [facility] ([place]) Nitrite, ur Negative Negative [facility] ([place]) Leukocyte esterase, ur Negative Negative [facility] ([place]) UA reflex comment Reflex to microscopic UA will be performed. [facility] ([place]) Urine 08/28/2024 1:25 PM CDT 08/28/2024 1:52 PM CDT Ally Kaplan MD LAB URINE ORDERABLES Final Re sult [facility] ([place]) 1 [facility] [place] [address] * (ABNORMAL) Urinalysis, microscopic only (08/28/2024 1:25 PM CDT) WBC, ur 0-5 0 - 5 /HPF RBC, ur 0-2 0 - 2 /HPF [facility] ([place]) Epithelial cells, squamous, ur 1-5 0 - 5 /HPF [facility] ([place]) Mucous, ur Present(A) [facility] ([place]) Urine 08/28/2024 1:25 PM CDT 08/28/2024 1:52 PM CDT Ally Kaplan MD LAB URINE ORDERABLES Final Re sult Performing Organization Address City/[facility]/ZIP Co de Phone Number [facility] ([place]) 1 [facility] [place] [address] * eGFR (08/28/2024 4:19 AM CDT) eGFR 73 >=60 mL/min/1. 73 m2 Comment: Interpretive Data Reference Interval Normal >/= 90 mL/min/1.73m2 Mildly decreased* 60 - 89 mL/min/1.73m2 Mildly to moderately decreased 45 - 59 mL/min/1.73m2 Moderately to severely decreased 30 - 44 mL/min/1.73m2 Severely decreased 15 - 29 mL/min/1.73m2 Kidney Failure < 15 mL/min/1.73m2 *Relative to young adult level Estimated glomerular filtration rate is determined by the 2020 CKD-EPI equation recommended by the National Kidney Foundation (A Unifying Approach to GFR Estimation: Recommendations of the NKF-ASK Task Force on Reassessing the Inclusion of Race in Diagnosing Kidney Disease, JASN 2020). The CKD-EPI equation should not be used for patients with unstable renal function and has not been validated in children and those over 70. Current interpretive data was last reviewed 2021. Blood 08/28/2024 4:19 AM CDT 08/28/2024 5:17 AM CDT us Nanette Juárez MD LAB BLOOD ORDERABLES Fi nal Result [facility] ([place]) 1 [facility] Department [place] [address] * (ABNORMAL) Differential, auto (08/28/2024 4:19 AM CDT) Neutrophil abs 4.9 1.5 - 6.5 K/cumm Imm gran abs 0.1 0.0 - 0.1 K/cumm [facility] ([place]) Lymphocyte abs 2.4 0.8 - 3.3 K/cumm [facility] ([place]) Monocyte abs 1.0(H) 0.2 - 0.8 K/cumm [facility] ([place]) Eosinophil abs 2.9(H) 0.0 - 0.5 K/cumm [facility] ([place]) Basophil abs 0.0 0.0 - 0.1 K/cumm [facility] ([place]) Neutrophil pct 43.1 % [facility] ([place]) Comment: Interpretive Data Percent cell count reference ranges are not reported, since discordance with absolute values may lead to misinterpretation of CBC data. Current Interpretive Data was last revised on 2017. Imm gran pct 0.6 % [facility] ([place]) Comment: Interpretive Data Percent cell count reference ranges are not reported, since discordance with absolute values may lead to misinterpretation of CBC data. Current Interpretive Data was last revised on 2017. Lymphocyte pct 21.0 % [facility] ([place]) Comment: Interpretive Data Percent cell count reference ranges are not reported, since discordance with absolute values may lead to misinterpretation of CBC data. Current Interpretive Data was last revised on 2017. Monocyte pct 9.0 % [facility] ([place]) Comment: Interpretive Data Percent cell count reference ranges are not reported, since discordance with absolute values may lead to misinterpretation of CBC data. Current Interpretive Data was last revised on 2017. Eosinophil pct 25.9 % [facility] ([place]) Comment: Interpretive Data Percent cell count reference ranges are not reported, since discordance with absolute values may lead to misinterpretation of CBC data. Current Interpretive Data was last revised on 2017. Basophil pct 0.4 % [facility] ([place]) Comment: Interpretive Data Percent cell count reference ranges are not reported, since discordance with absolute values may lead to misinterpretation of CBC data. Current Interpretive Data was last revised on 2017. Blood 08/28/2024 4:19 AM CDT 08/28/2024 5:15 AM CDT us Nanette Juárez MD LAB BLOOD ORDERABLES Fi nal Result [facility] ([place]) 1 [facility] [place] [address] * Thyroid Function [place] (08/28/2024 4:19 AM CDT) TSH 1.56 0.30 - 4.20 mcIUnit/mL Blood 08/28/2024 4:19 AM CDT 08/28/2024 5:17 AM CDT us Jessa ARANA LAB BLOOD ORDERABLES Fin al Result [facility] ([place]) 1 [facility] [place] [address] * (ABNORMAL) CBC with auto differential (08/28/2024 4:19 AM CDT) WBC 11.3(H) 3.8 - 9.9 K/cumm Hgb 10.7(L) 11.9 - 15.5 g/dL [facility] ([place]) Hct 34.8(L) 35.6 - 45.5 % [facility] ([place]) Plt 325 150 - 400 K/cumm [facility] ([place]) MPV 9.7 9.1 - 12.3 fL [facility] ([place]) RBC 3.93 3.90 - 5.20 M/cumm [facility] ([place]) MCV 88.5 81.3 - 96.4 fL [facility] ([place]) MCH 27.2 27.1 - 33.3 pg [facility] ([place]) MCHC 30.7(L) 32.3 - 35.7 g/dL [facility] ([place]) RDW CV 15.1(H) 11.1 - 14.9 % [facility] ([place]) RDW SD 49.1(H) 35.7 - 48.1 fL [facility] ([place]) NRBC abs 0.00 0.00 - 0.01 K/cumm [facility] ([place]) Blood 08/28/2024 4:19 AM CDT 08/28/2024 5:15 AM CDT us Zuly Laguerre MD LAB BLOOD ORDERABLES Final Result [facility] ([place]) 1 [facility] Department of [place] [id number] * Celiac reflex panel (08/28/2024 4:19 AM CDT) IgA 124 61 - 356 mg/dL [place] [facility] Celiac disease interpretation See Comment [facility] ([place]) Comment: See Comment: Negative serology. Celiac disease unlikely. However, approximately 10% of patients with celiac disease are seronegative. Also, patients who are already adhering to a gluten-free diet may be seronegative. If celiac disease is highly clinically suspected, consider HLA-DQ typing. Test Performed by: [address] [address] Product Safety Engineer: Katerin Kam Ph.D.; CLIA# [id number] Blood 08/28/2024 4:19 AM CDT 08/28/2024 5:17 AM CDT us Jessa ARANA LAB BLOOD ORDERABLES Fin al Result Performing Organization Address City/[facility]/ZIP Co de Phone Number [facility] ([place]) [address] [place] [address] [facility] * Tissue transglutaminase IgA (TGG-IgA Ab) (08/28/2024 4:19 AM CDT) TTG ab, IgA <1.2 <4.0 (Negative) units/mL Comment: Test Performed by: [facility] [address] [place] [address] Product Safety Engineer: Katerin Kam Ph.D.; CLIA# [id number] Interpretive data Negative: <15 units/mL Positive: > or equal to 15 units/mL Current interpretive data was last revised on 2016. Testing performed by: [facility], [address] [place] [address] Blood 08/28/2024 4:19 AM CDT 08/28/2024 5:17 AM CDT us Jessa ARANA LAB BLOOD ORDERABLES Fin al Result Performing Organization Address [facility] Co de Phone Number [facility] ([place]) 1 [facility] [place] [address] * Magnesium (08/28/2024 4:19 AM CDT) Pathologist [facility] Magnesium 2.2 1.4 - 2.5 mg/dL Blood 08/28/2024 4:19 AM CDT 08/28/2024 5:17 AM CDT us Nanette Juárez MD LAB BLOOD ORDERABLES Fi nal Result Performing Organization Address City/[facility]/ZIP Co de Phone Number [facility] ([place]) 1 [facility] [place] [address] * Vitamin B12 (08/28/2024 4:19 AM CDT) Vitamin B12 922 230 - 1,250 pg/mL Blood 08/28/2024 4:19 AM CDT 08/28/2024 5:17 AM CDT us Jessa ARANA LAB BLOOD ORDERABLES Fin al Result [facility] ([place]) 1 [facility] Department [place] [address] * (ABNORMAL) Comprehensive metabolic panel (08/28/2024 4:19 AM CDT) Sodium 142 135 - 145 mmol/L Potassium, pl 3.5 3.3 - 4.9 mmol/L [facility] ([place]) Chloride 106 97 - 110 mmol/L [facility] ([place]) CO2 23 22 - 32 mmol/L [facility] ([place]) Anion gap 14 2 - 15 mmol/L [facility] ([place]) BUN 10 6 - 25 mg/dL [facility] ([place]) Creatinine 0.83 0.60 - 1.10 mg/dL [facility] ([place]) Glucose 73 70 - 199 mg/dL [facility] ([place]) Comment: Interpretive Data Fasting glucose >/= 126 mg/dl is diagnostic for diabetes. Fasting is defined as no caloric intake for at least 8 hours. Fasting glucose between 100 mg/dl to 125 mg/dl is diagnostic of prediabetes. In a patient with classic symptoms of hyperglycemia or hyperglycemic crisis, a random glucose >/= 200 mg/dl is diagnostic for diabetes. In the absence of unequivocal hyperglycemia, results should be confirmed by repeat testing. The classification and Diagnosis of Diabetes Diabetes Care 2021; 46: S19-S40. Current interpretive data was last revised 2022. Calcium 8.8 8.5 - 10.3 mg/dL [facility] ([place]) Bilirubin, total <0.2 0.1 - 1.2 mg/dL [facility] ([place]) Protein, pl 6.3(L) 6.5 - 8.5 g/dL [facility] ([place]) Albumin 3.7 3.5 - 5.0 g/dL [facility] ([place]) Alk phos 100 40 - 130 Units/L [facility] ([place]) ALT 8 7 - 45 Units/L [facility] ([place]) AST 18 10 - 45 Units/L [facility] ([place]) Blood 08/28/2024 4:19 AM CDT 08/28/2024 5:17 AM CDT us Zuly Laguerre MD LAB BLOOD ORDERABLES Final Result [facility] ([place]) 1 [facility] [place] [address] * (ABNORMAL) Iron profile w/ IBC (08/27/2024 8:30 AM CDT) Iron 27(L) 35 - 145 mcg/dL TIBC 309 250 - 400 mcg/dL [facility]) Transferrin saturation 9(L) 20 - 50 % [facility] ([place]) Blood 08/27/2024 8:3 0 AM CDT 08/27/2024 8:41 AM CDT us Ally Kaplan MD LAB BLOOD ORDERABLES Final Re sult Performing Organization Address City/[facility]/ZIP Co de Phone Number [facility] ([place]) 1 [facility] [place] [address] * (ABNORMAL) Reticulocyte Count (08/27/2024 8:30 AM CDT) Retics, absolute 0.057 0.020 - 0.087 M/cumm Retics 1.4 0.4 - 2.9 % [facility] ([place]) Reticulocyte Hgb 29.2(L) 30.5 - 38.0 pg [facility] ([place]) Blood 08/27/2024 8:30 AM CDT 08/27/2024 8:41 AM CDT us Ally Kaplan MD LAB BLOOD ORDERABLES Final Re sult [facility] ([place]) 1 [facility] [place] [address] * Folate (08/27/2024 8:30 AM CDT) Folic acid 9.1 >=5.0 ng/mL Comment:Slightly Hemolyzed S pecimen. Results may be affected. Blood 08/27/2024 8:30 AM CDT 08/27/2024 8:41 AM CDT us Alyl Kaplan MD LAB BLOOD ORDERABLES Final Re sult [facility] ([place]) [address] [place] [address] * (ABNORMAL) eGFR (08/27/2024 6:43 AM CDT) Pathologist [facility] eGFR 57(L) >=60 mL/min/1. 73 m2 Comment: Interpretive Data Reference Interval Normal >/= 90 mL/min/1.73m2 Mildly decreased* 60 - 89 mL/min/1.73m2 Mildly to moderately decreased 45 - 59 mL/min/1.73m2 Moderately to severely decreased 30 - 44 mL/min/1.73m2 Severely decreased 15 - 29 mL/min/1.73m2 Kidney Failure < 15 mL/min/1.73m2 *Relative to young adult level Estimated glomerular filtration rate is determined by the 2020 CKD-EPI equation recommended by the National Kidney Foundation (A Unifying Approach to GFR Estimation: Recommendations of the NKF-ASK Task Force on Reassessing the Inclusion of Race in Diagnosing Kidney Disease, JASN 2020). The CKD-EPI equation should not be used for patients with unstable renal function and has not been validated in children and those over 70. Current interpretive data was last reviewed 2021. Blood 08/27/2024 6:43 AM CDT 08/27/2024 7:13 AM CDT us Nanette Juárez MD LAB BLOOD ORDERABLES Fi nal Result [facility] ([place]) 1 [facility] [place] [address] * (ABNORMAL) Differential, auto (08/27/2024 6:43 AM CDT) Neutrophil abs 7.0(H) 1.5 - 6.5 K/cumm Imm gran abs 0.1 0.0 - 0.1 K/cumm [facility] ([place]) Lymphocyte abs 2.4 0.8 - 3.3 K/cumm [facility] ([place]) Monocyte abs 1.5(H) 0.2 - 0.8 K/cumm [facility] ([place]) Eosinophil abs 2.6(H) 0.0 - 0.5 K/cumm [facility] ([place]) Basophil abs 0.0 0.0 - 0.1 K/cumm [facility] ([place]) Neutrophil pct 51.8 % [facility] ([place]) Comment: Interpretive Data Percent cell count reference ranges are not reported, since discordance with absolute values may lead to misinterpretation of CBC data. Current Interpretive Data was last revised on 2017. Imm gran pct 0.7 % [facility] ([place]) Comment: Interpretive Data Percent cell count reference ranges are not reported, since discordance with absolute values may lead to misinterpretation of CBC data. Current Interpretive Data was last revised on 2017. Lymphocyte pct 17.4 % [facility] ([place]) Comment: Interpretive Data Percent cell count reference ranges are not reported, since discordance with absolute values may lead to misinterpretation of CBC data. Current Interpretive Data was last revised on 2017. Monocyte pct 10.7 % [facility] ([place]) Comment: Interpretive Data Percent cell count reference ranges are not reported, since discordance with absolute values may lead to misinterpretation of CBC data. Current Interpretive Data was last revised on 2017. Eosinophil pct 19.1 % [facility] ([place]) Comment: Interpretive Data Percent cell count reference ranges are not reported, since discordance with absolute values may lead to misinterpretation of CBC data. Current Interpretive Data was last revised on 2017. Basophil pct 0.3 % [facility] ([place]) Comment: Interpretive Data Percent cell count reference ranges are not reported, since discordance with absolute values may lead to misinterpretation of CBC data. Current Interpretive Data was last revised on 2017. Blood 08/27/2024 6:43 AM CDT 08/27/2024 7:13 AM CDT us Nanette Juárez MD LAB BLOOD ORDERABLES Fi nal Result [facility] ([place]) 1 [facility] [place] [address] * (ABNORMAL) CBC with auto differential (08/27/2024 6:43 AM CDT) WBC 13.5(H) 3.8 - 9.9 K/cumm Hgb 10.9(L) 11.9 - 15.5 g/dL [facility] ([place]) Hct 35.0(L) 35.6 - 45.5 % [facility] ([place]) Plt 323 150 - 400 K/cumm [facility] ([place]) MPV 9.7 9.1 - 12.3 fL [facility] ([place]) RBC 3.97 3.90 - 5.20 M/cumm [facility] ([place]) MCV 88.2 81.3 - 96.4 fL [facility] ([place]) MCH 27.5 27.1 - 33.3 pg [facility] ([place]) MCHC 31.1(L) 32.3 - 35.7 g/dL [facility] ([place]) RDW CV 15.3(H) 11.1 - 14.9 % [facility] ([place]) RDW SD 49.6(H) 35.7 - 48.1 fL [facility] ([place]) NRBC abs 0.00 0.00 - 0.01 K/cumm [facility] ([place]) Blood 08/27/2024 6:43 AM CDT 08/27/2024 7:13 AM CDT us Zuly Laguerre MD LAB BLOOD ORDERABLES Final Result [facility] ([place]) 1 [facility] [place] [address] * Magnesium (08/27/2024 6:43 AM CDT) Pathologist [facility] Magnesium 2.0 1.4 - 2.5 mg/dL Blood 08/27/2024 6:43 AM CDT 08/27/2024 7:13 AM CDT us Nanette Juárez MD LAB BLOOD ORDERABLES Fi nal Result [facility] ([place]) 1 [facility] [place] [address] * (ABNORMAL) Comprehensive metabolic panel (08/27/2024 6:43 AM CDT) Sodium 137 135 - 145 mmol/L Potassium, pl 3.5 3.3 - 4.9 mmol/L [facility] ([place]) Chloride 102 97 - 110 mmol/L [facility] ([place]) CO2 21(L) 22 - 32 mmol/L [facility] ([place]) Anion gap 15 2 - 15 mmol/L [facility] ([place]) BUN 18 6 - 25 mg/dL [facility] ([place]) Creatinine 1.02 0.60 - 1.10 mg/dL [facility] ([place]) Glucose 72 70 - 199 mg/dL [facility] Comment: Interpretive Data Fasting glucose >/= 126 mg/dl is diagnostic for diabetes. Fasting is defined as no caloric intake for at least 8 hours. Fasting glucose between 100 mg/dl to 125 mg/dl is diagnostic of prediabetes. In a patient with classic symptoms of hyperglycemia or hyperglycemic crisis, a random glucose >/= 200 mg/dl is diagnostic for diabetes. In the absence of unequivocal hyperglycemia, results should be confirmed by repeat testing. The classification and Diagnosis of Diabetes Diabetes Care 2021; 46: S19-S40. Current interpretive data was last revised 2022. Calcium 9.0 8.5 - 10.3 mg/dL [facility] ([facility]) Bilirubin, total <0.2 0.1 - 1.2 mg/dL [facility] ([place]) Protein, pl 6.3(L) 6.5 - 8.5 g/dL [facility] ([place]) Albumin 3.6 3.5 - 5.0 g/dL [facility] ([place]) Alk phos 101 40 - 130 Units/L [facility] ([place]) ALT 7 7 - 45 Units/L [facility] ([place]) AST 12 10 - 45 Units/L [facility] ([place]) Blood 08/27/2024 6:43 AM CDT 08/27/2024 7:13 AM CDT us Zuly Laguerre MD LAB BLOOD ORDERABLES Final Result [facility] ([place]) 1 [facility] [place] [address] * C. difficile testing Stool (08/26/2024 11:23 PM CDT) Pathologist [facility] Result Negative Negative Toxin Result Negative Negative [facility] ([place]) C. diff result Negative, free toxin Negative, free toxin [facility] ([place]) C. diff interp Negative for toxigenic Clostridioides (Clostridium) difficile. Analysis was performed using a glutamate dehydrogenase antigen detection assay combined with a C. difficile toxin detection assay. [facility] ([place]) Stool 08/26/2024 11:2 3 PM CDT 08/26/2024 11:30 PM CDT us Nanette Juárez MD LAB MICROBIOLOGY - GENE RAL ORDERABLES Final Result [facility] ([place]) 1 [facility] [place] [address] * Cryptosporidium and Giardia antigen assay Stool (08/26/2024 11:23 PM CDT) Pathologist [facility] Giardia Ag Negative Negative Comment:Testing performed by : [facility], [address] [place] [place] [address] Cryptosporidium Ag Negative Negative [facility] ([place]) Comment: Interpretive data: Testing performed by the [facility] using an immunoassay that detects Cryptosporidium and Giardia antigens in stool specimens. If comprehensive examination for ova and parasites is required, please request Ova and Parasite Examination . Testing performed by: [facility], [address] [place] [address] Stool 08/26/2024 11:2 3 PM CDT 08/27/2024 12:27 PM CDT us Ally Kaplan MD LAB MICROBIOLOGY - GENERAL OR DERABLES Final Result [facility] ([place]) 1 [facility] [place] [address] * Stool culture Stool Rectum (08/26/2024 11:23 PM CDT) Direct Specimen Exam Shiga Toxin Testing: Antigen detection assay for Shiga-toxin NEGATIVE for Shiga Toxin 1 and Shiga Toxin 2. Comment:Testing performed by : [facility], [address] [place] [address] Report Final Report: No growth of enteric bacterial pathogens [facility] ([place]) Comment:Testing performed by : [facility], [address] [place] [address] Stool (Rectum) 08/26/2024 11 :23 PM CDT 08/27/2024 6:12 AM CDT Narrative [facility] ([place]) - 09/01/2024 11:15 AM CDT received in culture and sensitivity transport media Testing performed by [facility] ([phone]). Routine stool cultures include procedures to detect Salmonella, Shigella, Edwardsiella, Aeromonas, Pleisiomonas, Campylobacter, Yersinia, E. coli O157, and Shiga-like toxins. Vibrio is cultured only upon special request. If Vibrio is suspected, please call the laboratory at [phone]. Interpretive data was last updated October 09, 2016. us Nanette Juárez MD LAB MICROBIOLOGY - GENE RAL ORDERABLES Final Result Performing Organization Address City/[facility]/ZIP Co de Phone Number [facility] ([place]) 1 [facility] [employer] [place] [address] * (ABNORMAL) Urinalysis reflex to microscopic and culture Urine (08/26/2024 10:23 PM CDT) Color, ur Yellow Yellow Clarity, ur Clear Clear [facility] ([place]) Specific gravity, ur 1.025 1.003 - 1.030 [facility] ([place]) pH, urine 5.5 [facility] ([place]) Comment: Interpretive Data U rine pH is affected by diet, medications, systemic acid-base disturbances, and renal tubular function. pH may affect urinary stone formation. For example, urine pH below 6.0 may help reduce the tendency for calcium phosphate stones and pH greater than 6.0 may reduce the tendency for uric acid stone formation. Source: [facility] Current Interpretive Data was last revised on 2017 Protein, ur ql 1+(A) Negative [facility] ([place]) Glucose, ur ql Negative Negative [facility] ([place]) Ketones, ur 2+(A) Negative [facility] ([place]) Bilirubin, ur Negative Negative [facility] ([place]) Blood, ur Trace(A) Negative [facility] ([place]) Urobilinogen, ur <2.0 <2.0 mg/dL [facility] ([place]) Nitrite, ur Negative Negative [facility] ([place]) Leukocyte esterase, ur 2+(A) Negative [facility] ([place]) UA reflex comment Reflex to microscopic UA will be performed. [facility] ([place]) Urine 08/26/2024 10:2 3 PM CDT 08/26/2024 10:57 PM CDT us Nanette Juárez MD LAB MICROBIOLOGY - GENE RAL ORDERABLES Final Result [facility] ([place]) [address] Department [place] [address] * (ABNORMAL) Urinalysis, microscopic only (08/26/2024 10:23 PM CDT) WBC, ur 21-50(A) 0 - 5 /HPF RBC, ur 6-10(A) 0 - 2 /HPF [facility] ([place]) Epithelial cells, squamous, ur 1-5 0 - 5 /HPF [facility] ([place]) Bacteria, ur Trace(A) [facility] ([place]) Mucous, ur Present(A) [facility] A ([place]) Hyaline casts, ur 11-20(A) 0 - 10 /LPF [facility] ([place]) Culture Reflex Comment Reflex to urine culture will be performed. [facility] ([place]) Urine 08/26/2024 10:2 3 PM CDT 08/26/2024 10:57 PM CDT us Nanette Juárez MD LAB URINE ORDERABLES Fi nal Result Performing Organization Address [facility] Co de Phone Number [facility] ([place]) 1 [facility] [place] [address] * Urine culture Urine (08/26/2024 10:23 PM CDT) Report Final Report: Less than 100,000 colonies/mL (clinically insignificant growth based on current clinical standards) Comment:Testing performed by : [facility], [address] [place] [address] Organism (CLINICALLY INSIGNIFICANT GROWTH [facility] ([place]) Urine 08/26/2024 10:2 3 PM CDT 08/27/2024 6:11 AM CDT Narrative [facility] ([place]) - 08/28/2024 1:21 PM CDT Urine culture reflexed based upon urinalysis results. Testing performed by [facility] ([phone]) us Nanette Juárez MD LAB MICROBIOLOGY - GENE RAL ORDERABLES Final Result Performing Organization Address City/[facility]/ZIP Co de Phone Number [facility] ([place]) 1 [facility] [place] [address] * Lipase (08/26/2024 10:23 PM CDT) Lipase 11 10 - 99 Units/L Blood 08/26/2024 10:2 3 PM CDT 08/26/2024 10:57 PM CDT us Nanette Juárez MD LAB BLOOD ORDERABLES Fi nal Result Performing Organization Address [facility] Co de Phone Number [facility]) 1 [facility] [place] [address] * CT Abdomen Pelvis W Contrast (08/26/2024 8:22 PM CDT) Anatomical Region Laterality Modality Body N/A Computed Tomogra phy 08/26/2024 8:42 PM CDT Narrative 08/26/2024 9:03 PM CDT EXAM DESCRIPTION: CT ABDOMEN PELVIS W CONTRAST REASON FOR STUDY: Abdominal pain, acute, nonlocalized, diarrhea Patient presents with abdominal pain cramping and diarrhea onset 3 days ago. TECHNIQUE: CT scan of the abdomen and pelvis performed with intravenous and without oral contrast using helical scanning technique with dynamic intravenous contrast injection. Reconstructed coronal and sagittal MPR images reviewed. All images stored on PACS. Automated exposure control was used as a dose optimization technique for this examination. CONTRAST TYPE/DOSE: 100mL of IOVERSOL 350 MG IODINE/ML INTRAVENOUS SYRINGE injected via intravenous FINDINGS: LOWER CHEST: There is a 2 mm nodule in the left lower lobe seen on image 9. There is some atelectasis in the right middle lobe. No effusion. LIVER: Normal size. Low-density lesions in the liver are most likely cysts or hemangiomas. GALLBLADDER: Unremarkable. BILE DUCTS: No intrahepatic or extrahepatic ductal dilatation. SPLEEN: Normal size. A 1.1 cm liver lesion in the spleen is most likely a cyst or hemangioma. PANCREAS: No identified cystic or solid masses. No significant calcifications. No adjacent inflammation or peripancreatic fluid collections. Pancreatic duct not dilated. ADRENALS: Normal. KIDNEYS/URINARY TRACT: No identified significant cystic or solid masses. No visualized stones. No hydronephrosis or hydroureter. Symmetric enhancement. Urinary bladder is unremarkable. GI: There is fluid in the colon. No dilated bowel loops. No obvious wall thickening. The appendix extends into right upper quadrant anterior to the liver and appears normal. There are diverticula in the colon. PERITONEUM: No ascites or free air. RETROPERITONEUM: No mass or adenopathy. REPRODUCTIVE: No significant abnormality. VASCULATURE: Atherosclerotic disease in the aorta, aortic branches, and iliacs. MUSCULOSKELETAL: Multilevel degenerative changes are present with scoliosis without fracture. There are laminectomy changes at L3 and L4. There are mild subluxations at L2-L3 and L3-L4. No concerning lesions are present. OTHER: No other abnormality. IMPRESSION: Fluid in the colon may be consistent with diarrhea. Diverticulosis. 2 mm nodule in the left lower lobe. Per Fleischner Society Guidelines, no further investigation recommended. Additional findings as above. THIS IS AN ELECTRONICALLY VERIFIED FINAL REPORT 08/26/2024 9:03 PM - Electronically signed by Judy Lance M.D. LL: JENNIFER Report ID: [id number] Reading Location: [id number] Procedure Note Judy Lance MD - 08/26/2024 EXAM DESCRIPTION: CT ABDOMEN PELVIS W CONTRAST REASON FOR STUDY: Abdominal pain, acute, nonlocalized, diarrhea Patient presents with abdominal pain cramping and diarrhea onset 3 daysago. TECHNIQUE: CT scan of the abdomen and pelvis performed with intravenousand without oral contrast using helical scanning technique with dynamic intravenous contrast injection. Reconstructed coronal and sagittal MPRimages reviewed. All images stored on PACS. Automated exposure control was usedas a dose optimization technique for this examination. CONTRAST TYPE/DOSE: 100mL of IOVERSOL 350 MG IODINE/ML INTRAVENOUSSYRINGE injected via intravenous FINDINGS: LOWER CHEST: There is a 2 mm nodule in the left lower lobe seen on image9. There is some atelectasis in the right middle lobe. No effusion. LIVER: Normal size. Low-density lesions in the liver are most likelycysts or hemangiomas. GALLBLADDER: Unremarkable. BILE DUCTS: No intrahepatic or extrahepatic ductal dilatation. SPLEEN: Normal size. A 1.1 cm liver lesion in the spleen is most likelya cyst or hemangioma. PANCREAS: No identified cystic or solid masses. No significant calcifications. No adjacent inflammation or peripancreatic fluidcollections. Pancreatic duct not dilated. ADRENALS: Normal. KIDNEYS/URINARY TRACT: No identified significant cystic or solid masses.No visualized stones. No hydronephrosis or hydroureter. Symmetricenhancement. Urinary bladder is unremarkable. GI: There is fluid in the colon. No dilated bowel loops. No obviouswall thickening. The appendix extends into right upper quadrant anterior tothe liver and appears normal. There are diverticula in the colon. PERITONEUM: No ascites or free air. RETROPERITONEUM: No mass or adenopathy. REPRODUCTIVE: No significant abnormality. VASCULATURE: Atherosclerotic disease in the aorta, aortic branches, and iliacs. MUSCULOSKELETAL: Multilevel degenerative changes are present withscoliosis without fracture. There are laminectomy changes at L3 and L4. There aremild subluxations at L2-L3 and L3-L4. No concerning lesions are present. OTHER: No other abnormality. IMPRESSION: Fluid in the colon may be consistent with diarrhea. Diverticulosis. 2 mm nodule in the left lower lobe. Per Fleischner Society Guidelines, no further investigation recommended. Additional findings as above. THIS IS AN ELECTRONICALLY VERIFIED FINAL REPORT 08/26/2024 9:03 PM - Electronically signed by Judy Lance M.D. LL: JENNIFER Report ID: [id number] Reading Location: [id number] Shaina Mathur MD IM CT PROCEDURES Final R esult * Influenza A/B, RSV, and COVID-19 PCR Nasopharyngeal (08/26/2024 12:49 PM CDT) COVID-19 RNA Negative Negative Influenza A RNA Negative Negative [facility] ([place]) Influenza B RNA Negative Negative [facility] ([place]) RSV RNA Negative Negative [facility] ([place]) Comment: Interpretive data: Testing performed by [facility]. This test is performed using the gestigon Xpert Xpress CoV-2/Flu/RSV plus assay. This is a multiplex, real- time reverse transcriptase PCR assay intended for the qualitative detection of nucleic acid from SARS-CoV-2, influenza A, influenza B, and respiratory syncytial virus. This assay has been cleared by the [place] Food and Drug administration. The performance characteristics have been verified by the [facility]. Results must be considered in the clinical context, and a negative result does not rule out infection. Interpretive Data last revised 2023 Nasopharyngeal 08/26/2024 12 :49 PM CDT 08/26/2024 12:54 PM CDT Narrative [facility] ([place]) - 08/26/2024 1:34 PM CDT Is the Patient experiencing symptoms consistent with COVID?->Yes us Shaina Mathur MD LAB MICROBIOLOGY - GENERA L ORDERABLES Final Result [facility] ([place]) 1 [facility] [place] [address] * (ABNORMAL) eGFR (08/26/2024 12:49 PM CDT) eGFR 39(L) >=60 mL/min/1. 73 m2 Comment: Interpretive Data Reference Interval Normal >/= 90 mL/min/1.73m2 Mildly decreased* 60 - 89 mL/min/1.73m2 Mildly to moderately decreased 45 - 59 mL/min/1.73m2 Moderately to severely decreased 30 - 44 mL/min/1.73m2 Severely decreased 15 - 29 mL/min/1.73m2 Kidney Failure < 15 mL/min/1.73m2 *Relative to young adult level Estimated glomerular filtration rate is determined by the 2020 CKD-EPI equation recommended by the National Kidney Foundation (A Unifying Approach to GFR Estimation: Recommendations of the NKF-ASK Task Force on Reassessing the Inclusion of Race in Diagnosing Kidney Disease, JASN 2020). The CKD-EPI equation should not be used for patients with unstable renal function and has not been validated in children and those over 70. Current interpretive data was last reviewed 2021. Blood 08/26/2024 12:4 9 PM CDT 08/26/2024 12:54 PM CDT Shaina Mathur MD LAB BLOOD ORDERABLES Chloe ivy Result [facility] ([place]) 1 [facility] [place] [address] * (ABNORMAL) CBC with auto differential (08/26/2024 12:49 PM CDT) WBC 16.4(H) 3.8 - 9.9 K/cumm Hgb 13.2 11.9 - 15.5 g/dL [facility] ([place]) Hct 42.1 35.6 - 45.5 % [facility] ([place]) Plt 404(H) 150 - 400 K/cumm [facility] ([place]) MPV 9.4 9.1 - 12.3 fL [facility] ([place]) RBC 4.83 3.90 - 5.20 M/cumm [facility] ([place]) MCV 87.2 81.3 - 96.4 fL [facility] ([place]) MCH 27.3 27.1 - 33.3 pg [facility] ([place]) MCHC 31.4(L) 32.3 - 35.7 g/dL [facility] ([place]) RDW CV 15.2(H) 11.1 - 14.9 % [facility] ([place]) RDW SD 48.3(H) 35.7 - 48.1 fL [facility] ([place]) NRBC abs 0.00 0.00 - 0.01 K/cumm [facility] ([place]) Blood 08/26/2024 12:4 9 PM CDT 08/26/2024 12:54 PM CDT Shaina Mathur MD LAB BLOOD ORDERABLES Chloe l Result Performing Organization Address City/[facility]/ZIP Co de Phone Number [facility] ([place]) 1 [facility] [place] [address] * (ABNORMAL) Manual Differential (08/26/2024 12:49 PM CDT) Differential Manual Cells Counted 100 [facility] ([place]) Neutrophil abs 12.8(H) 1.5 - 6.5 K/cumm [facility] ([place]) Imm gran abs 0.2(H) 0.0 - 0.1 K/cumm [facility] ([place]) Lymphocyte abs 2.5 0.8 - 3.3 K/cumm [facility] ([place]) Monocyte abs 1.0(H) 0.2 - 0.8 K/cumm [facility] ([place]) Neutrophil pct 74.0 % [facility] ([place]) Comment: Interpretive Data Percent cell count reference ranges are not reported, since discordance with absolute values may lead to misinterpretation of CBC data. Current Interpretive Data was last revised on 2017. Lymphocyte pct 15.0 % [facility] ([place]) Comment: Interpretive Data Percent cell count reference ranges are not reported, since discordance with absolute values may lead to misinterpretation of CBC data. Current Interpretive Data was last revised on 2017. Monocyte pct 6.0 % [facility] ([place]) Comment: Interpretive Data Percent cell count reference ranges are not reported, since discordance with absolute values may lead to misinterpretation of CBC data. Current Interpretive Data was last revised on 2017. Band Neutrophil pct 4.0 0.0 - 5.0 % [facility] ([place]) Promyelocyte pct 1.0(H) 0.0 - 0.0 % [facility] ([place]) RBC morphology Consistent with RBC Indicies [facility] ([place]) Platelet estimate Adequate CE [facility] ([place]) Blood 08/26/2024 12:4 9 PM CDT 08/26/2024 12:54 PM CDT us Shaina Mathur MD LAB BLOOD ORDERABLES Chloe haynes Result [facility] ([place]) 1 [facility] [place] [address] * (ABNORMAL) CRP (acute phase) (08/26/2024 12:49 PM CDT) CRP 22.1(H) <=10.0 mg/L Blood 08/26/2024 12:4 9 PM CDT 08/26/2024 6:10 PM CDT us Vishnu Contreras MD LAB BLOOD ORDERABLES Final Result [facility] ([place]) 1 [facility] [place] [address] * (ABNORMAL) Comprehensive metabolic panel (08/26/2024 12:49 PM CDT) Sodium 136 135 - 145 mmol/L Potassium, pl 3.3 3.3 - 4.9 mmol/L [facility] ([place]) Chloride 95(L) 97 - 110 mmol/L [facility] ([place]) CO2 24 22 - 32 mmol/L [facility] ([place]) Anion gap 17(H) 2 - 15 mmol/L [facility] ([place]) BUN 18 6 - 25 mg/dL [facility] Creatinine 1.41(H) 0.60 - 1.10 mg/dL [facility] ([place]) Glucose 91 70 - 199 mg/dL [facility] ([place] Comment: Interpretive Data Fasting glucose >/= 126 mg/dl is diagnostic for diabetes. Fasting is defined as no caloric intake for at least 8 hours. Fasting glucose between 100 mg/dl to 125 mg/dl is diagnostic of prediabetes. In a patient with classic symptoms of hyperglycemia or hyperglycemic crisis, a random glucose >/= 200 mg/dl is diagnostic for diabetes. In the absence of unequivocal hyperglycemia, results should be confirmed by repeat testing. The classification and Diagnosis of Diabetes Diabetes Care 2021; 46: S19-S40. Current interpretive data was last revised 2022. Calcium 10.2 8.5 - 10.3 mg/dL [facility] ([place]) Bilirubin, total 0.3 0.1 - 1.2 mg/dL [facility] ([place]) Protein, pl 7.9 6.5 - 8.5 g/dL [facility] ([place]) Albumin 4.6 3.5 - 5.0 g/dL [facility] ([place]) Alk phos 140(H) 40 - 130 Units/L [facility] ([place]) ALT 8 7 - 45 Units/L [facility] ([place]) AST 14 10 - 45 Units/L [facility] ([place]) Blood 08/26/2024 12:4 9 PM CDT 08/26/2024 12:54 PM CDT Shaina Mathur MD LAB BLOOD ORDERABLES Chloe l Result [facility] ([place]) 1 [facility] [place] [address] * CT Lung Cancer Screening (08/16/2024 1:02 PM CDT) Anatomical Region Laterality Modality Chest N/A Computed Tomogra phy 08/20/2024 2:28 PM CDT Narrative 08/20/2024 2:39 PM CDT EXAM DESCRIPTION: CT LUNG CANCER SCREENING REASON FOR STUDY: Screening CT of the chest in a former smoker with a 40 pack year smoking history. Additional history: None. TECHNIQUE: Low dose CT scan of the chest was performed without intravenous contrast using helical scanning technique. The exam extends from the lung apices through the lung bases. Automatic exposure control was used as a dose optimization technique. NOTE: This study was performed for the specific purposes of lung cancer screening and is not an alternative to diagnostic chest CT. RADIATION DOSE: CT dose index volume (CTDIvol) = 2.36 mGy COMPARISON: Outside hospital CT dated 07/08/2020 FINDINGS: SMOKING RELATED LUNG DISEASE: Mild emphysema LUNG NODULES: Stable 3 mm right upper lobe nodule (46). Stable 5 mm central right lower lobe nodule (171). Stable 3 mm right lower lobe nodule (178). New possible 4 mm left lower lobe nodule versus vessel (160). OTHER: Chronic scarring within the medial segment right middle lobe. No pleural effusion or pneumothorax. Prominent mediastinal lymph nodes are unchanged. No hilar lymphadenopathy. The heart is normal in size with significant coronary calcification. The aorta is nonaneurysmal. No axillary lymphadenopathy. No chest wall mass. Images of the upper abdomen demonstrate no gross abnormality. Bone windows demonstrate no suspicious lytic or sclerotic lesion. No acute fracture seen. IMPRESSION: 1. Possible new 4 mm left lower lobe nodule compared to 2020. Lung-RADS category 3: Probably benign. Recommendation: Low dose CT of chest in 6 months. THIS IS AN ELECTRONICALLY VERIFIED FINAL REPORT 08/20/2024 2:39 PM - Electronically signed by Matt Alston M.D. AG: ANA Report ID: [id number] Reading Location: [place] [address] Procedure Note Matt Alston MD - 08/20/2024 EXAM DESCRIPTION: CT LUNG CANCER SCREENING REASON FOR STUDY: Screening CT of the chest in a former smoker with a40 pack year smoking history. Additional history: None. TECHNIQUE: Low dose CT scan of the chest was performed without intravenous contrast using helical scanning technique. The exam extends from the lung apices through the lung bases. Automatic exposure control was used as adose optimization technique. NOTE: This study was performed for the specific purposes of lung cancer screening and is not an alternative to diagnostic chest CT. RADIATION DOSE: CT dose index volume (CTDIvol) = 2.36 mGy COMPARISON: Outside hospital CT dated 07/08/2020 FINDINGS: SMOKING RELATED LUNG DISEASE: Mild emphysema LUNG NODULES: Stable 3 mm right upper lobe nodule (46). Stable 5 mm central right lower lobe nodule (171). Stable 3 mm right lower lobenodule (178). New possible 4 mm left lower lobe nodule versus vessel (160). OTHER: Chronic scarring within the medial segment right middle lobe. No pleural effusion or pneumothorax. Prominent mediastinal lymph nodes are unchanged. No hilar lymphadenopathy. The heart is normal in size with significant coronary calcification. The aorta is nonaneurysmal. Noaxillary lymphadenopathy. No chest wall mass. Images of the upper abdomendemonstrate no gross abnormality. Bone windows demonstrate no suspicious lytic or sclerotic lesion. No acute fracture seen. IMPRESSION: 1. Possible new 4 mm left lower lobe nodule compared to 2020. Lung-RADS category 3: Probably benign. Recommendation: Low dose CT of chest in 6 months. THIS IS AN ELECTRONICALLY VERIFIED FINAL REPORT 08/20/2024 2:39 PM - Electronically signed by Matt Alston M.D. AG: ANA Report ID: [id number] Reading Location: [place] [address] us Aria Flores [facility] IMG CT PROCEDURES Final Resul t * US Thyroid (08/12/2024 4:09 PM CDT) Anatomical Region Laterality Modality Head and Neck N/A Ultrasound 08/15/2024 6:55 AM CDT Narrative 08/15/2024 6:57 AM CDT EXAM DESCRIPTION: US THYROID REASON FOR STUDY: thyroid nodules TECHNIQUE: Ultrasound of the thyroid was performed with grayscale and color doppler. COMPARISON: None FINDINGS: RIGHT: The right thyroid lobe measures 4.3 x 1.2 x 1.7 cm. A 0.6 x 0.4 x 0.3 cm nodule seen within the superior right thyroid. This nodule is anechoic and cystic (TR 1). LEFT: The left thyroid lobe measures 3.6 x 1.3 x 1.4 cm. The left thyroid lobe is normal in echotexture. ISTHMUS: The isthmus measures 0.4 cm in AP dimension. The isthmus is normal in echotexture. VASCULARITY: Normal. OTHER: No other significant finding. IMPRESSION: 1. Subcentimeter cystic right thyroid nodule. No specific follow-up is required. ACR TI-RADS Risk Category: 1 REFERENCE: According to the ACR Thyroid Imaging, Reporting and Data System (TI-RADS): White Paper of the ACR TI-RADS Committee Oct, 2016 recommendations regarding the management of thyroid nodules are as follows: 1. TI-RADS 1: Risk of malignancy <2%, no FNA or follow up required. 2. TI-RADS 2: Risk of malignancy <2%, no FNA or follow up required. 3. TI-RADS 3: Risk of malignancy 2%-5%. Nodules 1.5 cm or greater follow up at 1, 3 and 5 years recommended, for nodules 2.5 cm or greater FNA recommended. 4. TI-RADS 4: Risk of malignancy 5%-20% Nodules 1.0 cm or greater follow up at 1, 2, 3 and 5 years recommended, for nodules 1.5 cm or greater FNA recommended 5. TI-RADS 5: Risk of malignancy >20%. Nodules 0.5 cm or greater annual follow up for 5 years recommended, for nodules 1.0 cm or greater FNA recommended. The ACT TI-RADS committee recommends targeting no more than two nodules for FNA. If three or more nodules meet criteria for FNA, the two with the most suspicious appearance based on ACR TI-RADS points should be sampled. THIS IS AN ELECTRONICALLY VERIFIED FINAL REPORT 08/15/2024 6:57 AM - Electronically signed by Matt Alston M.D. AG: ANA Report ID: [id number] Reading Location: [place] [address] Procedure Note Matt Alston MD - 08/15/2024 EXAM DESCRIPTION: US THYROID REASON FOR STUDY: thyroid nodules TECHNIQUE: Ultrasound of the thyroid was performed with grayscale andcolor doppler. COMPARISON: None FINDINGS: RIGHT: The right thyroid lobe measures 4.3 x 1.2 x 1.7 cm. A 0.6 x 0.4x 0.3 cm nodule seen within the superior right thyroid. This nodule isanechoic and cystic (TR 1). LEFT: The left thyroid lobe measures 3.6 x 1.3 x 1.4 cm. The leftthyroid lobe is normal in echotexture. ISTHMUS: The isthmus measures 0.4 cm in AP dimension. The isthmus isnormal in echotexture. VASCULARITY: Normal. OTHER: No other significant finding. IMPRESSION: 1. Subcentimeter cystic right thyroid nodule. No specific follow-up is required. ACR TI-RADS Risk Category: 1 REFERENCE: According to the ACR Thyroid Imaging, Reporting and Data System (TI-RADS): White Paper of the ACR TI-RADS Committee Oct, 2016recommendations regarding the management of thyroid nodules are as follows: 1. TI-RADS 1: Risk of malignancy <2%, no FNA or follow up required. 2. TI-RADS 2: Risk of malignancy <2%, no FNA or follow up required. 3. TI-RADS 3: Risk of malignancy 2%-5%. Nodules 1.5 cm or greater followup at 1, 3 and 5 years recommended, for nodules 2.5 cm or greater FNArecommended. 4. TI-RADS 4: Risk of malignancy 5%-20% Nodules 1.0 cm or greater followup at 1, 2, 3 and 5 years recommended, for nodules 1.5 cm or greater FNA recommended 5. TI-RADS 5: Risk of malignancy >20%. Nodules 0.5 cm or greater annual follow up for 5 years recommended, for nodules 1.0 cm or greater FNA recommended. The ACT TI-RADS committee recommends targeting no more than two nodulesfor FNA. If three or more nodules meet criteria for FNA, the two with themost suspicious appearance based on ACR TI-RADS points should be sampled. THIS IS AN ELECTRONICALLY VERIFIED FINAL REPORT 08/15/2024 6:57 AM - Electronically signed by Matt Alston M.D. AG: AG Report ID: [id number] Reading Location: [place] [address] us Aria Flores NP [facility] [place]ED[place] Final Resul t * Hepatitis C antibody Blood (01/24/2024 11:32 AM CDT) Hep C Ab Nonreactive Nonreactive Comment: Interpretive Data Nonreactive: Antibodies to HCV not detected. Does NOT exclude the possibility of recent exposure to HCV. Equivocal: Equivocal for HCV antibodies. Supplemental molecular testing will be automatically performed to determine infection status in accordance with current CDC screening recommendations. Reactive: Positive for HCV antibodies. This may represent current or past HCV infection. Supplemental molecular testing will be automatically performed to determine current infection status in accordance with current CDC screening recommendations. Interpretive data was last revised on 2019. Blood 01/24/2024 11:3 2 AM CDT 01/24/2024 7:56 PM CDT us Aria Flores NP LAB MICROBIOLOGY - GENERAL [place] [address] [address] Acosta Department [place] [address] * DEXA SCAN (02/09/2023) us Historical Provider HEALTH MAINTENANCE Final Result * HM MAMMOGRAPHY (05/01/2022) Historical Provider MD HEALTH MAINTENANCE Final Result * Colonoscopy (04/15/2020) Anatomical Region Laterality Modality Other Historical Provider ENDOSCOPY PROCEDURES Chloe l Result from Last 3 Months or Most Recently Relevant to Health Maintenance Insurance AETNA MEDICARE AETNA MEDICARE AETNA MEDICARE Advance Directives For more information, please contact: [phone] Documents on File Type Date Recorded Patient Manager Of Corporate Expl anation ADVANCE DIRECTIVE 06/11/2023 5:34 PM POWER OF HOME THEATER SPECIALIST-MEDICAL * Full Code (Latest Code Status on File) Date Activated Date Inactivated Comments 08/29/2024 10:48 AM 09/01/2024 5:26 PM * Full Code Date Activated Date Inactivated Comments 08/26/2024 10:52 PM 08/29/2024 10:48 AM * Full Code Date Activated Date Inactivated Comments 05/19/2024 5:29 PM 05/20/2024 3:20 PM * Full Code Date Activated Date Inactivated Comments 06/22/2023 7:32 AM 06/28/2023 8:04 PM Care Teams Practice Administrator Relationship Specialty Start Date End Date Aria Flores NP PCP - General Family Medicine 01/24/24 Raphael Kirkland MD [address] [place] [address] Consulting Physician Vascular Surgery 04/17/24 Emerita Amado MD [address] [place] [address] Consulting Physician Interventional Cardiology 05/05/24 Zuly Laguerre MD [address] [place] [address] [address] [place] [id number] Consulting Physician Gastroenterology 08/31/24
--- OUTSIDE RECORDS SUMMARY | 2024-10-23 15:30 | XMS_ITS | Clinical Summary ---
Author Organization [facility] Address [address] [place] [id number] Care Team Providers Care Spinning Bath Person Name Role Phone Aria Flores NP Primary Care Provider [phone] Raphael Kirkland MD Unavailable Emerita Amado MD Unavailable [phone] Zuly Laguerre MD Unavailable [phone] Allergies Active Allergy Reactions Criticality Noted Date [...] hold on starting until August capsule 3 5 07/15/19 26 Active Additional [...] needed. Will have patient follow up , may reschedule October appt to November or December [...] October Rotator cuff impingement syndrome of right delmis bev 07/15/2024 Assessment & Plan (07/15/2024 10:22 AM TRAFFIC CONTROL FLAGGER): Advised by Dr. Silveira to do PT [...] 07/15/2024 Assessment & Plan (07/15/2024 10:22 AM TRAFFIC CONTROL FLAGGER): Advised by Dr. Silveira to do PT [...] 07/15/2024 Assessment & Plan (07/15/2024 12:43 PM TRAFFIC CONTROL FLAGGER): 5mm nodule seen on thyroid from CT last April. Will order follow up ultrasound of thyroid Myalgia 07/15/2024 Assessment & Plan (07/23/2024 10:57 AM TRAFFIC CONTROL FLAGGER): Hand cramping. NCS ordered. Referred to rheum due to positive NADIRA. -Rheumatoid factor: <10 -Erythrocyte sedimentation rate: 12 -CRP (acute phase): <3 -NADIRA: positive -JANIA: neg -dsDNA: <1.0 Assessment & Plan (07/15/2024 12:42 PM TRAFFIC CONTROL FLAGGER): Will obtain arthritis labs Carotid stenosis, asymptomatic, right 05/19/2024 Dyspnea on exertion 05/15/2024 Carotid stenosis, right 04/23/2024 Assessment & Plan (04/29/2024 8:59 AM TRAFFIC CONTROL FLAGGER): Asymptomatic high-grade right ICA stenosis, findings discussed [...] 04/22/2024 Assessment & Plan (05/26/2024 1:59 PM TRAFFIC CONTROL FLAGGER): Continue meloxicam. Reviewed MRI results with her. She does not have a appointment with pain management until August. Assessment & Plan (04/22/2024 10:11 AM TRAFFIC CONTROL FLAGGER): Reviewed records from ER, previous MRI from 2016. Add prednisone taper Renewed pain meds, discussed short term use MRI cervical spine Refer to pain management Cervical stenosis of spinal canal 04/22/2024 History of right-sided carotid endarterectomy Assessment & Plan (07/15/2024 8:48 AM TRAFFIC CONTROL FLAGGER): Continuing to do well status post right CEA. Current duplex shows the right internal carotid artery is patent. Shows moderate stenosis to the left internal carotid artery. Recommend continued aspirin statin therapy risk factor modifications and follow up in 6 months with vascular surgery for routine surveillance with carotid duplex. Sees vasc surg December. Assessment & Plan (07/03/2024 10:29 AM TRAFFIC CONTROL FLAGGER): Continuing to do well status post right [...] duplex. Assessment & Plan (05/26/2024 2:01 PM TRAFFIC CONTROL FLAGGER): Healing. Follows with vascular surgery Assessment & Plan (04/09/2024 10:01 AM TRAFFIC CONTROL FLAGGER): Severe greater than 80% stenosis of the [...] 01/24/2024 Overview (01/24/2024): 2023 - Dr. Tapia [facility] Insomnia due to other mental disorder 01/24/2024 Assessment & Plan (07/15/2024 11:07 AM TRAFFIC CONTROL FLAGGER): Trazodone helped some, but didn't like how it made her feel. Doesn't want to try any other sleep aid Assessment & Plan (05/26/2024 1:54 PM TRAFFIC CONTROL FLAGGER): Will trial trazodone 25-50 mg at bedtime. Recurrent major depression 01/24/2024 Assessment & Plan (07/15/2024 8:44 AM TRAFFIC CONTROL FLAGGER): Mood stable. Continue apresoline Sleep has been good. Continue trazodone Assessment & Plan (05/26/2024 2:02 PM TRAFFIC CONTROL FLAGGER): Patient states she thinks her depression is [...] 01/24/2024 Assessment & Plan (07/15/2024 8:44 AM TRAFFIC CONTROL FLAGGER): Last B12 1,239. On the higher end. Decrease supplementation. Repeat labs ordered Assessment & Plan (01/24/2024 11:13 AM CDT): Hx B12 deficiency. No longer on oral medication. Will recheck B12 Iron deficiency 01/07/2024 Assessment & Plan (07/15/2024 10:17 AM TRAFFIC CONTROL FLAGGER): Hgb 13.3 and Hct 41.5. continue to [...] 08/16/2023 Assessment & Plan (07/15/2024 10:17 AM TRAFFIC CONTROL FLAGGER): Last vit D 40. Continue 2000 units. Repeat Labs ordered. Not due for bone density scan at this time Assessment & Plan (01/24/2024 11:05 AM CDT): Hx of low vitamin D. Currently on oral otc. Will recheck vitamin D level. Lumbar radiculopathy 11/28/2022 Muscle weakness 11/20/2022 Assessment & Plan (05/26/2024 1:56 PM TRAFFIC CONTROL FLAGGER): She is going to go back and see her orthopedic surgeon that she had back surgery with. I am not sure what the cause of her weakness in her lower legs is. I briefly discussed physical therapy. Weakness of both lower extremities 09/26/2022 Assessment & Plan (07/15/2024 11:06 AM TRAFFIC CONTROL FLAGGER): MRI lumbar spine shows degenerative disc disease. Mild to severe. Patient has a message in to neurosurgeon - who ordered MRI. They had recommended an emg/ ncs of lower extremities if no improvement. Medrol dose katherine has helped with lower extremity weakness. She is also off of her statin right now. Herpes zoster 09/12/2022 Hypercholesteremia 04/25/2022 Assessment & Plan (07/15/2024 10:37 AM TRAFFIC CONTROL FLAGGER): LDL was 108 in January. Pt reported that she is not taking her lipitor due to it causing muscle pain. Will start pt on fluvastatin as this one is the least likely to cause muscle pain. Repeat labs ordered Assessment & Plan (04/29/2024 8:59 AM TRAFFIC CONTROL FLAGGER): Stable continue Lipitor Assessment & Plan (04/09/2024 10:01 AM TRAFFIC CONTROL FLAGGER): Stable continue Lipitor Assessment & Plan (01/24/2024 11:05 AM CDT): Lipid abnormalities are stable, reviewed previous lipid levels in [facility]. Continue statin therapy. Lipitor (atorvastatin) Order for lipid panel was given today to be obtained. Pt voiced understanding of lab drawn and continuation of current medication regimen. Essential hypertension 04/25/2022 Assessment & Plan (07/15/2024 8:40 AM TRAFFIC CONTROL FLAGGER): BP stable this visit. Continue norvasc. Monitor at home bp Assessment & Plan (05/26/2024 2:00 PM TRAFFIC CONTROL FLAGGER): Blood pressure well-controlled. Continue amlodipine 5 mg. And hydralazine Assessment & Plan (04/29/2024 8:59 AM TRAFFIC CONTROL FLAGGER): Stable continue amlodipine Assessment & Plan (04/09/2024 10:01 AM TRAFFIC CONTROL FLAGGER): Stable continue amlodipine Assessment & Plan (01/24/2024 11:05 AM CDT): Stable/ Improved. Blood pressure is adequately controlled on amlodipine and hydralazine . We will not make any medication changes today. Will have her follow-up in 6 months for continued monitoring and management Quit smoking 04/25/2022 Overview (07/23/2024): 02/2023 50 * 12PPD Chronic back pain 04/25/2022 Assessment & Plan (04/25/2022 8:26 PM TRAFFIC CONTROL FLAGGER): Pt has tenderness over the sacroiliac joint [...] 07/15/2024 Assessment & Plan (05/26/2024 2:00 PM TRAFFIC CONTROL FLAGGER): We have focused on pain in her neck with radiculopathy however she was tender in her shoulder as well. She likely has osteoarthritis in her shoulder as well. Will get an x-ray of her right shoulder and refer to Orthopedics Pre-operative cardiovascular examination 05/15/2024 05/26/2024 Other specified soft tissue disorders 04/22/2024 05/26/2024 Sleep apnea 11/13/2023 01/24/2024 Neurogenic claudication 06/24/2023 0807/2023 Cigarette smoker 02/09/2023 01/24/2024 Blood in urine 08/01/2022 01/24/2024 Weakness of both lower extremities 04/25/2022 01/24/2024 Numbness of upper extremity 03/08/2017 05/26/2024 Encounters Date Type Department Care Team Description 10/22/2024 12:39 PM CDT - 10/22/2024 11:59 PM CDT Hospital Encounter [facility] Neurological Disorders Testing [address] [place] [address] Cramping of hands; Bilateral hand pain; Numbness and tingling in both hands Discharge Disposition: Discharge to home or self care 10/09/2024 Orders Only [facility] Sports Medicine and Primary Care at [address] [place] [phone] Diogo Silveira DO Subluxation of tendon of long head of right biceps (Primary Dx); Tear of right rotator cuff, unspecified tear extent, unspecified whether traumatic 10/09/2024 Results Follow-Up [facility] Sports Medicine and Primary Care at [address] [place] [phone] Manda Duke MA MRI Shoulder Right WO Contrast 10/08/2024 11:03 AM CDT - 10/08/2024 11:59 PM CDT Hospital Encounter [facility] [address] [place] [address] Subluxation of tendon of long head of right biceps Discharge Disposition: Discharge to home or self care 10/08/2024 Results Follow-Up [facility] Primary Care at [address] [phone] Aria Flores NP CBC with auto differential, Iron profile w/ IBC, Differential, auto 10/07/2024 11:03 AM CDT - 10/07/2024 11:59 PM CDT Hospital Encounter [address] [address] Other iron deficiency anemia Discharge Disposition: Discharge to home or self care 10/07/2024 11:00 AM CDT Lab [facility] Outpatient Lab at [address] [phone] 09/29/2024 1:15 PM CDT Office Visit [facility] Sports Medicine and Primary Care at [address] [place] [address] Diogo Silveira DO Subluxation of tendon of long head of right biceps (Primary Dx); Cervical pain (neck) 09/19/2024 Telephone [facility] Gastroenterology at [address] [place] [address] Jossie Garcia 09/18/2024 Telephone [facility] Gastroenterology at [address] [place] [address] Kailyn Del Toro LPN 09/17/2024 Results Follow-Up [facility] Gastroenterology at [address] [place] [address] Zuly Laguerre MD Surgical pathology 09/03/2024 2:30 PM CDT Office Visit [facility] Primary Care at [address] [phone] Aria Flores NP Hospital discharge follow-up (Primary Dx); Other iron deficiency anemia; Colitis 08/29/2024 1:45 PM CDT - 08/29/2024 2:15 PM CDT Surgery [address] [address] Zuly Laguerre MD SIGMOID BIOPSY 08/29/2024 11:52 AM CDT Anesthesia Event [address] [address] Celi Moscoso MD 08/26/2024 4:12 PM CDT - 09/01/2024 1:20 PM CDT Hospital Encounter [facility] Care [address] [place] [phone] Vishnu Contreras MD Petters, MD Eusebio Doran Narine, MD Colitis (Primary Dx); C. difficile enteritis; Dehydration Discharge Disposition: Discharge to home or self care 08/26/2024 11:16 AM CDT - 08/26/2024 11:59 PM CDT Hospital Encounter [facility] Emergency, Room R Discharge Disposition: Discharge to home or self care 08/25/2024 Nurse Triage [facility] Primary Care at [address] [phone] Aria Flores, PUBLISHING DIRECTOR 08/20/2024 Results Follow-Up [facility] Primary Care at [address] [phone] Aria Flores, ANTHONY CT Lung Cancer Screening 08/16/2024 11:00 AM CDT - 08/16/2024 11:59 PM CDT Hospital Encounter [address] [address] Personal history of nicotine dependence; Nicotine dependence, cigarettes, in remission Discharge Disposition: Discharge to home or self care 08/15/2024 Results Follow-Up [facility] Primary Care at [address] [phone] Aria Flores NP US Thyroid 08/12/2024 3:02 PM CDT - 08/12/2024 11:59 PM CDT Hospital Encounter [address] [address] Thyroid nodule Discharge Disposition: Discharge to home or self care 08/11/[address] [address] Jewell Ferreira RN 2024 Orders Only [facility] Primary Care at [address] [phone] Aira Flores, PUBLISHING DIRECTOR 2024 Results Follow-Up [facility] Primary Care at [address] [phone] Aria Flores NP XR Hand Bilateral 3 or More Views of Each, Creatine kinase (CK), total, Urine culture Urine, bladder, Additional followed-up results: 5 from Last 3 Months Immunizations Immunization Administration Dates Next Due Influenza, Unspecified 06/04/2023(Deferr ed: Patient Refused),06/04/2022(Deferred: Patient Refused) Surgical History Surgery Date Site/Laterality Comments COLONOSCOPY 04/2020 BACK SURGERY 06/2023 decompression LITHOTRIPSY years ago CAROTID ARTERY ANGIOPLASTY SPINE SURGERY 06/21/23 Medical History Medical History Date Comments Hypertension High cholesterol Osteopenia Motion sickness Vertigo Allergies Enlarged tonsils Obesity Emphysema lung (HCC) History of pneumonia years ago Migraine headache ocular, about 2 times a year PLMD (periodic limb movement disorder) Wears glasses History of shingles years ago History of kidney stones had lit hotripsy Bulging of cervical intervertebral disc Decreased ROM of neck due to bul ging discs Dental bridge present top front Carotid stenosis right Arthritis 2017 Neuromuscular disorder (HCC) 11/23/22 Kidney stone 10/24/20 Family History Medical History Relation Name Comments No Known Problems Brother 1 No Known Problems Brother 2 Cancer Brother 3 Abhilash Hinojosa Hypertension Brother 4 Dwayne Hyattran Alcohol abuse Father Dale Hinojosa Diabetes Father Dale Hinojosa Heart failure Father Dale Hinojosa Arthritis Mother Nancy Hinojosa Cancer Mother Nancy Hinojosa Lung cancer Mother Nancy Hinojosa Arthritis Sister 1 Annamarie Kreuiter Breast cancer Sister 1 Annamarie Kreuiter COPD Sister 1 Annamarie Kreuiter Breast cancer Sister 2 Lung cancer Sister 3 Arthritis Sister 4 Tera Kreuiter Cancer Sister 4 Tera Kreuiter COPD Sister 5 Melody Shaver Anesthesia problems Neg Hx Relation Name Status Comments Brother 1 Alive Brother 2 Alive Brother 3 Abhilash Hinojosa Brother 4 Bill Hinojosa Father Dale Hinojosa Mother Nancy Hinojosa Sister 1 Annamarie Gonzalezuiter Alive Sister 2 Alive Sister 3 Sister 4 Tera Kreuiter Sister 5 Melody Shaver Social History Tobacco Use Types Packs/Day Years Used Date Smoking Tobacco: Former Cigarettes 0.8 52.6 0 1970 - 02/16/2023 Passive Smoke Exposure: Past Smokeless Tobacco: Never Tobacco Cessation:Counseling Given: Not Answered [facility] Utilities Answer Date Recorded In the past 12 months has e [employer], gas, oil, or water company threatened to [...] often do you attend chur ch or restorationist services? 1 to 4 times per year 09/02/2024 Do you belong to any clubs o r organizations such as tenriism groups, unions, fraternal or athletic groups, or [...] any time in the past 12 m [facility], were you homeless or living in a longterm (including now)? No 09/02/2024 Personal Safety Answer Date Recorded Have you ever been in or are you currently in a harmful physical or emotional relationship or is someone making you feel afraid or unsafe? Denies 08/26/2024 Comments No Sex and Gender Information Value Date Recorded Sex Assigned at Not on file Legal Sex Female 11:40 AM TRAFFIC CONTROL FLAGGER Gender Identity Female 03/03/2024 7:19 AM CDT Sexual Orientation Not on file Obstetrics History Last Filed Vital Signs Vital Sign Reading [...] Description 08/31/2025 8:25 AM CDT Hospital Encounter [address] [address] Zuly Laguerre MD [address] [place] [address] [address] [place] [address] [place] [address] 08/31/2025 8:25 AM CDT - 08/31/2025 8:55 AM CDT Surgery [address] [place] [address] Zuly Laguerre MD [address] [place] [address] [place] [address] COLONOSCOPY Scheduled Procedures Name Priority Associated Diagnoses Date/Ti me COLONOSCOPY History of colonic polyps Diverticulosis 08/31/2025 8:25 AM CDT Health Maintenance Due Date Last Done Comments DTaP/Tdap/Td Vaccine (1 - Tdap) 1959 Pneumococcal vaccine 65+ (1 of 1 - PCV) 1998 Zoster Vaccine (1 of 2) 1998 Well Visit 65+ 2013 Covid-19 Vaccine (5 - 2023-2 5 season) 2024 11/22/2021, 03/21/2021, 08/16/2020, Additional history exists Influenza Vaccine (Season Ended) 2025 Osteoporosis Screening-Bone Density Scan 02/09/2025 02/09/2023 Lung Cancer Screening 02/12/2025 08/16/2024 Fall Risk Assessment 09/01/2025 09/01/2024, 02/22/2024, 01/24/2024 Depression Screening 09/03/2025 09/03/2024, 04/22/2024, 04/22/2024, Additional history exists Colon Cancer Screening-Colonoscopy Discontinued 04/15/2020 Breast Cancer Screening-Mammogram Discontinued 022, 05/01/2022 Hepatitis B Screening Completed 01/24/2024 Hepatitis C Screening Completed 01/24/2024 Colon Cancer Screening-CT Colonography Discontinued 08/29/2024, 04/15/2020 Colon Cancer Screening-DNA Stool Discontinued 08/30/19 25, 04/15/2020 Colon Cancer Screening-FIT Discontinued 08/29/2024, Colon Cancer Screening-FOBT Discontinued 08/29/2024, 1 06/15/2019 Colon Cancer Screening-Sigmoidoscopy Discontinued 08/29/2024, 04/15/2020 Colorectal Cancer Screening Discontinued Medical Devices Implanted Type Area Web Applications Administrator Device Identifier Shelf Expiration Date Model / Serial / Lot [id number] Patch Vascuguard 0.88cm [id number] - [id number] Implanted:Qty: 1 on 05/19/2024 by Raphael Kirkland MD at [facility] Right: Carotid Tower [employer] [facility] [id number] 12/23/2025 [id number] / / [id number] Procedures Procedure Name Priority Date/Time Associated Diagnosis [...] risk patient HM DEXA SCAN Routine 02/09/2023 HM MAMMOGRAPHY Routine 05/01/2022 COLONOSCOPY Routine 04/15/2020 from [...] by Jordan Wilson M.D. JR: Report ID: [id number] Reading Location: [id number] Procedure Note Jordan Wilson MD - 10/09/2024 [...] by Jordan Wilson M.D. JR: Report ID: [id number] Reading Location: [place] [address] Diogo Silveira DO IMG MRI PROCEDURES Fin [...] [facility] Neutrophil pct 58.0 % [facility] Comment: Interpretive Data Percent cell count reference ranges are not reported, since discordance with absolute values may lead to misinterpretation of CBC data. Current Interpretive Data was last revised on 2017. Imm gran pct 0.3 % [facility] Comment: Interpretive Data Percent cell count reference ranges are not reported, since discordance with absolute values may lead to misinterpretation of CBC data. Current Interpretive Data was last revised on 2017. Lymphocyte pct 26.8 % [facility] Comment: Interpretive Data Percent cell count reference ranges are not reported, since discordance with absolute values may lead to misinterpretation of CBC data. Current Interpretive Data was last revised on 2017. Monocyte pct 10.5 % [facility] Comment: Interpretive Data Percent cell count reference ranges are not reported, since discordance with absolute values may lead to misinterpretation of CBC data. Current Interpretive Data was last revised on 2017. Eosinophil pct 3.2 % [facility] Comment: Interpretive Data Percent cell count reference ranges are not reported, since discordance with absolute values may lead to misinterpretation of CBC data. Current Interpretive Data was last revised on 2017. Basophil pct 1.2 % [facility] Comment: Interpretive Data Percent cell count reference ranges are not reported, since discordance with absolute values may lead to misinterpretation of CBC data. Current Interpretive Data was last revised on 2017. Blood 10/07/2024 11:0 3 AM CDT 10/07/2024 6:17 PM CDT us Aria Flores NP LAB BLOOD ORDERABLES Final Re sult Performing Organization Address City/[facility] Co de Phone Number SARAH [phone] [address] Department [place] [address] * (ABNORMAL) Iron profile w/ IBC (10/07/2024 11:03 AM CDT) Iron 48 35 - 145 mcg/dl TIBC 383 250 - 400 mcg/dL SARAH Transferrin saturation 13(L) 20 - 50 % SARAH Blood 10/07/2024 11:0 3 AM CDT 10/07/2024 6:17 PM CDT Aria Flores NP LAB BLOOD ORDERABLES Final Re sult Performing Organization Address City/State/[facility] Co de Phone Number SARAH GAMBLE [phone] [address] Department [place] [address] * (ABNORMAL) CBC with auto differential (10/07/2024 11:03 AM CDT) Pathologist [facility] WBC 5.89 3.80 - 9.90 K/cumm Hgb 12.1 11.9 - 15.5 g/dL [facility] Hct 40.5 35.6 - 45.5 % [facility] Plt 403(H) 150 - 400 K/cumm [facility] MPV 10.1 9.1 - 12.3 fL [facility] RBC 4.45 3.90 - 5.20 M/cumm [facility] MCV 91.0 81.3 - 96.4 fL [facility] MCH 27.2 27.1 - 33.3 pg [facility] MCHC 29.9(L) 32.3 - 35.7 g/dL [facility] RDW CV 18.0(H) 11.1 - 14.9 % [facility] RDW SD 60.0(H) 35.7 - 48.1 fL [facility] NRBC abs 0.00 0.00 - 0.01 K/cumm [facility] Blood 10/07/2024 11:0 3 AM CDT 10/07/2024 6:17 PM CDT Aria Flores NP LAB BLOOD ORDERABLES Final Daysi green Performing Organization Address City/[facility]/ZIP Co de Phone Number SARAH GAMBLE [phone] [address] Department [place] [address] * eGFR (09/01/2024 8:44 AM CDT) Pathologist [facility] eGFR 80 >=60 mL/min/1. 73 m2 Comment: [...] 8:44 AM CDT 09/01/2024 9:11 AM CDT us Zuly Laguerre MD LAB BLOOD ORDERABLES Final Result [facility] ([place]) 1 [facility] Department [place] [address] * (ABNORMAL) Comprehensive metabolic panel (09/01/2024 8:44 AM CDT) Sodium 135 135 - 145 mmol/L Potassium, pl 4.1 3.3 - 4.9 mmol/L [facility] ([place]) Chloride 100 97 - 110 mmol/L [facility] CO2 21(L) 22 - 32 mmol/L [facility] ([place]) Anion gap 15 2 - 15 mmol/L [facility] BUN 12 6 - 25 mg/dL [facility] Creatinine 0.77 0.60 - 1.10 mg/dL [facility] ([place]) Glucose 167 70 - 199 mg/dL [facility] Comment: Interpretive Data Fasting glucose [...] classification and Diagnosis of Diabetes Diabetes Care 202; 46: S19-S40. Current interpretive data was last [...] ORDERABLES Final Result [facility] ([place]) 1 [facility] Department [place] [address] * eGFR (08/31/2024 4:30 AM CDT) eGFR [...] Laguerre MD LAB BLOOD ORDERABLES Final Result ASRAH [facility] ([place]) 1 [facility] Department [place] [address] * (ABNORMAL) Comprehensive metabolic panel (08/31/2024 4:30 [...] classification and Diagnosis of Diabetes Diabetes Care 202; 46: S19-S40. Current interpretive data was last [...] ([place]) AST 25 10 - 45 Units/L [facility] ([place]) Blood 08/31/2024 4:30 AM CDT 08/31/2024 5:03 AM CDT us Zuly Laguerre MD LAB BLOOD ORDERABLES Final Result SARAH [place] ([place]) 1 [facility] [place] [address] * eGFR (08/30/2024 4:16 AM CDT) eGFR [...] MD LAB BLOOD ORDERABLES Final Result [facility] [place] 1 [facility] [place] [address] * (ABNORMAL) Differential, auto (08/30/2024 4:16 AM [...] revised on 2017. Monocyte pct 11.3 % [facility] ([place]) Comment: Interpretive Data [...] revised on 2017. Basophil pct 0.5 % [facility] ([place]) Comment: Interpretive Data Percent cell count reference ranges are not reported, since discordance with absolute values may lead to misinterpretation of CBC data. Current Interpretive Data was last revised on 2017. Blood 08/30/2024 4:16 AM CDT 08/30/2024 4:56 AM CDT us Zuly Laguerre MD LAB BLOOD ORDERABLES Final Result [facility] ([place]) 1 [facility] Department [place] [address] * (ABNORMAL) CBC with auto differential (08/30/2024 4:16 AM CDT) WBC 9.3 3.8 - 9.9 K/cumm Hgb 10.5(L) 11.9 - 15.5 g/dL [facility] ([place]) Hct 33.2(L) 35.6 - 45.5 % [facility] ([place]) Plt 319 150 - 400 K/cumm [facility] ([place]) MPV 9.8 9.1 - 12.3 fL [...] 4:16 AM CDT 08/30/2024 4:56 AM CDT us Zuly Laguerre MD LAB BLOOD ORDERABLES Final Result SARAH [facility] ([place]) 1 [facility] Department [place] [address] * (ABNORMAL) Comprehensive metabolic panel (08/30/2024 4:16 AM CDT) Sodium 140 135 - 145 mmol/L Potassium, pl 3.0(C) 3.3 - 4.9 mmol/L [facility] Comment:Critical Result call ed by [email or web address] at 2024-08-30 05:41:27. Result Read Back by [...] 9.1 8.5 - 10.3 mg/dL [facility] ([facility]) [...] MD LAB BLOOD ORDERABLES Final Result [facility] 1 [facility] Department [place] [address] * Surgical pathology (08/29/2024 2:53 PM CDT) Tissue specimen (specimen) (Colon, Biopsy) 08/29/2024 12:07 PM CDT Narrative PATHOLOGY [facility] [place] - 09/01/2024 2:50 PM CDT EPIC results best viewed via link to PDF [facility] [employer] [facility] Department of Pathology [address] [place] [id number] Note to Patients: This report may contain [...] Final Report Patient Name: CASA MEDINA Address: [address] [place] [address] Gender: F : 1950 (Age: 74) Service: Medical Location: [facility] Hospital #: [id number] Patient Type: [facility] Taken: 08/29/2024 Received: 08/29/2024 Accessioned: 08/29/2024 Reported: [...] determined by the Surgical Pathology Department at [facility] as part of an ongoing rn clinical quality program and in compliance with federally mandated [...] characteristics determined by the Surgical Pathology Department [facility]. It has not been cleared or approved by the U. S. Food and Drug Administration. Note for decalcified specimens: This assay has not been validated on decalcified tissues. Results should be interpreted with caution given the possibility of false negativity on decalcified specimens Zuly Laguerre MD LAB PATHOLOGY ORDERABLES F inal Result Performing Organization Address City/State/[facility] Co de Phone Number PATHOLOGY [address] [address] * Flexible Sigmoidoscopy (08/29/2024 10:41 AM CDT) Anatomical Region Laterality Modality Other Narrative Procedure Note Zuly Laguerre MD - 08/29/2024 10:41 AM CDT [facility] Patient Name: Casa Medina Procedure Date: 08/29/2024 10:41 AM Date of : 1950 Admit Type: Inpatient Age: 74 Gender: Female Attending MD: Zuly Laguerre M.D. Room: [facility] END[facility] 1 Note Status: Finalized Patient Profile: This is a 74 year old female. Patient admitted with significant unexplained diarrhea. Sigmoidoscopy for evaluation Procedure: Flexible Sigmoidoscopy Indications: Diarrhea Referring MD: Alirio Amaro Providers: Zuly Laguerre M.D. Impression: - The [...] and informed consentwas obtained. The Endoscope [id number] was introduced through the anus and advanced [...] 10:41 AM Procedure Code(s): --- Professional --- 40475, Sigmoidoscopy, flexible; with biopsy, single or multiple Diagnosis Code(s): --- Professional --- K64.8, Other hemorrhoids R19.7, Diarrhea, unspecified K57.30, Diverticulosis of large intestine without perforation orabscess without bleeding CPT copyright 2020 [employer]. All rights reserved. The codes documented in this report are preliminary and upon transformation analyst reviewmay be revised to meet current compliance requirements. Recognized by the [employer] for promoting quality in endoscopy us Zuly Laguerre MD ENDOSCOPY PROCEDURES Final Result [...] MD LAB BLOOD ORDERABLES Fi nal Result [facility] 1 [facility] Department [place] [address] * (ABNORMAL) Differential, auto (08/29/2024 5:21 AM CDT) Pathologist [facility] Neutrophil abs 5.0 1.5 - 6.5 K/cumm Imm gran abs 0.1 0.0 - 0.1 K/cumm [facility]) Lymphocyte abs 2.0 0.8 - 3.3 K/cumm [facility] ([facility]) Monocyte abs 0.9(H) 0.2 - 0.8 K/cumm [facility]) Eosinophil abs 3.3(H) 0.0 - 0.5 K/cumm [facility] ([facility]) Basophil abs 0.1 0.0 - 0.1 K/cumm [facility]) Neutrophil pct 44.2 % [facility] ([facility]) Comment: Interpretive Data Percent cell count reference ranges are not reported, since discordance with absolute values may lead to misinterpretation of CBC data. Current Interpretive Data was last revised on 2017. Imm gran pct 0.6 % [facility] ([facility]) Comment: Interpretive Data Percent cell count reference ranges are not reported, since discordance with absolute values may lead to misinterpretation of CBC data. Current Interpretive Data was last revised on 2017. Lymphocyte pct 17.6 % [facility] R [facility] ([facility]) Comment: Interpretive Data Percent cell count reference ranges are not reported, since discordance with absolute values may lead to misinterpretation of CBC data. Current Interpretive Data was last revised on 2017. Monocyte pct 8.2 % [facility] ([facility]) Comment: Interpretive Data Percent cell count reference ranges are not reported, since discordance with absolute values may lead to misinterpretation of CBC data. Current Interpretive Data was last revised on 2017. Eosinophil pct 29.0 % [facility] R [facility] ([facility]) Comment: Interpretive Data Percent cell count reference ranges are not reported, since discordance with absolute values may lead to misinterpretation of CBC data. Current Interpretive Data was last revised on 2017. Basophil pct 0.4 % [facility] ([facility]) Comment: Interpretive Data Percent cell count reference ranges are not reported, since discordance with absolute values may lead to misinterpretation of CBC data. Current Interpretive Data was last revised on 2017. Blood 08/29/2024 5:21 AM CDT 08/29/2024 6:08 AM CDT us Nanette Juárez MD LAB BLOOD ORDERABLES Fi nal Result [facility]) 1 [facility] Department of Laboratories [place], [place] [id number] * (ABNORMAL) CBC with auto differential (08/29/2024 [...] ORDERABLES Final Result [facility] 1 [facility] Department [place] [address] * (ABNORMAL) Comprehensive metabolic panel (08/29/2024 5:21 [...] 5:21 AM CDT 08/29/2024 6:08 AM CDT Zuly Laguerre MD LAB BLOOD ORDERABLES Final Result [facility] 1 [facility] Department [place] [address] * (ABNORMAL) Urinalysis reflex to microscopic (08/28/2024 1:25 PM CDT) Color, ur Straw Yellow Clarity, ur Clear Clear [facility]AH A ([facility]) Specific gravity, ur 1.005 1.003 [...] tendency for uric acid stone formation. Source: [facility] Current Interpretive Data was last revised on [...] [facility] ([facility]) Leukocyte esterase, ur Negative Negative [facility]) UA reflex comment Reflex to microscopic UA will be performed. [facility] Urine 08/28/2024 1:25 PM CDT 08/28/2024 1:52 PM CDT Ally Kaplan MD LAB URINE ORDERABLES Final Re sult Performing Organization Address [facility] Co de Phone Number [facility] 1 [facility] [place] [address] * (ABNORMAL) Urinalysis, microscopic only (08/28/2024 1:25 PM CDT) WBC, ur 0-5 0 - 5 /HPF RBC, ur 0-2 0 - 2 /HPF [facility] Epithelial cells, squamous, ur 1-5 0 - 5 /HPF [facility]) Mucous, ur Present(A) [facility] ([facility]) Urine 08/28/2024 1:25 PM CDT 08/28/2024 1:52 PM CDT Ally Kaplan MD LAB URINE ORDERABLES Final Re sult Performing Organization Address City/[facility]/ZIP Co de Phone Number [facility] ([facility]) 1 [facility] [place] [address] * eGFR (08/28/2024 4:19 AM CDT) eGFR [...] us Nanette Juárez MD LAB BLOOD ORDERABLES [facility] Result [facility] 1 [facility] Department [place] [address] * (ABNORMAL) Differential, auto (08/28/2024 4:19 AM CDT) Neutrophil abs 4.9 1.5 - 6.5 K/cumm Imm gran abs 0.1 0.0 - 0.1 K/cumm [facility]) Lymphocyte abs 2.4 0.8 - 3.3 K/cumm [facility]) Monocyte abs 1.0(H) 0.2 - 0.8 K/cumm [facility]) Eosinophil abs 2.9(H) 0.0 - 0.5 K/cumm [facility]) Basophil abs 0.0 0.0 - 0.1 K/cumm [facility]) Neutrophil pct 43.1 % [facility] ([facility]) Comment: Interpretive [...] LAB BLOOD ORDERABLES Fi nal Result [facility] 1 [facility] Department [place] [address] * Thyroid Function [place] (08/28/2024 4:19 AM CDT) TSH 1.56 0.30 - 4.20 mcIUnit/mL Blood 08/28/2024 4:19 AM CDT 08/28/2024 5:17 AM CDT us Jessa ARANA LAB BLOOD ORDERABLES Fin al Result [facility] 1 [facility] Department [place] [address] * (ABNORMAL) CBC with auto differential (08/28/2024 4:19 AM CDT) WBC 11.3(H) 3.8 - 9.9 K/cumm Hgb 10.7(L) 11.9 - 15.5 g/dL [facility] Hct 34.8(L) 35.6 - 45.5 % [facility] Plt 325 150 - 400 K/cumm [facility] MPV 9.7 9.1 - 12.3 fL [facility] RBC 3.93 3.90 - 5.20 M/cumm [facility]) MCV 88.5 81.3 - 96.4 fL [facility]) MCH 27.2 27.1 - 33.3 pg [facility] MCHC 30.7(L) 32.3 - 35.7 g/dL [facility]) RDW CV 15.1(H) 11.1 - 14.9 % [facility] RDW SD 49.1(H) 35.7 - 48.1 fL [facility] NRBC abs 0.00 0.00 - 0.01 K/cumm [facility]) Blood 08/28/2024 4:19 AM CDT 08/28/2024 5:15 AM CDT us Zuly Laguerre MD LAB BLOOD ORDERABLES Final Result [facility] 1 [facility] [place] [address] * Celiac reflex panel (08/28/2024 4:19 AM CDT) IgA 124 61 - 356 mg/dL [place] [facility] Celiac disease interpretation See Comment [facility] ([facility]) Comment: See Comment: Negative serology. Celiac disease unlikely. However, approximately 10% of patients with celiac disease are seronegative. Also, patients who are already adhering to a gluten-free diet may be seronegative. If celiac disease is highly clinically suspected, consider HLA-DQ typing. Test Performed by: [place] [address] Continuity Tester: Katerin Kam Ph.D.; CLIA# [id number] Blood 08/28/2024 4:19 AM CDT 08/28/2024 5:17 AM CDT Jessa ARANA LAB BLOOD ORDERABLES Fin al Result Performing Organization Address [facility] Co de Phone Number [facility] ([facility]) 1 [facility] [place] [address] [facility] [facility] * Tissue transglutaminase IgA (TGG-IgA Ab) (08/28/2024 4:19 AM CDT) TTG ab, IgA <1.2 <4.0 (Negative) units/mL Comment: Test Performed by: [place] [address] Continuity Tester: Katerin Kam Ph.D.; CLIA# [id number] Interpretive data Negative: <15 units/mL Positive: > or equal to 15 units/mL Current interpretive data was last revised on 2016. Testing performed by: [facility], 1 [facility], [place]., [address] Blood 08/28/2024 4:19 AM CDT 08/28/2024 5:17 AM CDT Jessa ARANA LAB BLOOD ORDERABLES Fin al Result Performing Organization Address [facility] Co de Phone Number [facility] 1 [facility] [place] [address] * Magnesium (08/28/2024 4:19 AM CDT) [facility] Magnesium 2.2 1.4 - 2.5 mg/dL Blood 08/28/2024 4:19 AM CDT 08/28/2024 5:17 AM CDT Nanette Juárez MD LAB BLOOD ORDERABLES Fi nal Result [facility] 1 [facility] [place] [address] * Vitamin B12 (08/28/2024 4:19 AM CDT) [facility] Vitamin B12 922 230 - 1,250 pg/mL Blood 08/28/2024 4:19 AM CDT 08/28/2024 5:17 AM CDT Jessa ARANA LAB BLOOD ORDERABLES Fin al Result [facility] 1 [place] [address] * (ABNORMAL) Comprehensive metabolic panel (08/28/2024 4:19 AM CDT) [facility] Sodium 142 135 - 145 mmol/L Potassium, pl 3.5 3.3 - 4.9 mmol/L [facility] Chloride 106 97 - 110 mmol/L [facility] ([facility]) CO2 23 22 - 32 mmol/L [facility] ([facility] Anion gap 14 2 - 15 mmol/L [facility] ([facility]) BUN 10 6 - 25 mg/dL [facility] Creatinine 0.83 0.60 - 1.10 mg/dL [facility] ([facility]) Glucose 73 70 - 199 mg/dL [facility] Comment: Interpretive Data Fasting glucose >/= 126 [...] Laguerre MD LAB BLOOD ORDERABLES Final Result Performing Organization Address City/[facility]/ZIP Co de Phone Number [facility] ([facility]) 1 [facility] [place] [address] * (ABNORMAL) Iron profile w/ IBC (08/27/2024 8:30 AM CDT) Iron 27(L) 35 - 145 mcg/dL TIBC 309 250 - 400 mcg/dL [facility] Transferrin saturation 9(L) 20 - 50 % [facility] Blood 08/27/2024 8:30 AM CDT 08/27/2024 8:41 AM CDT us Ally Kaplan MD LAB BLOOD ORDERABLES Final Re sult [facility] 1 [place] [address] * (ABNORMAL) Reticulocyte Count (08/27/2024 8:30 AM CDT) [facility] Retics, absolute 0.057 0.020 - 0.087 M/cumm Retics 1.4 0.4 - 2.9 % [facility] Reticulocyte Hgb 29.2(L) 30.5 - 38.[address] [facility] Blood 08/27/2024 8:30 AM CDT 08/27/2024 8:41 AM CDT Ally Kaplan MD LAB BLOOD ORDERABLES Final Re sult [facility] 1 [place] [address] * Folate (08/27/2024 8:30 AM CDT) [facility] Folic acid 9.1 >=5.0 ng/mL Comment:Slightly Hemolyzed S pecimen. Results may be affected. Blood 08/27/2024 8:30 AM CDT 08/27/2024 8:41 AM CDT us Ally Kaplan MD LAB BLOOD ORDERABLES Final Re sult [facility] 1 [place] [address] * (ABNORMAL) eGFR (08/27/2024 6:43 AM CDT) [facility] eGFR 57(L) >=60 mL/min/1. 73 m2 Comment: [...] BLOOD ORDERABLES Fi nal Result [facility] 1 [facility] [place] [address] * (ABNORMAL) Differential, auto (08/27/2024 6:43 AM [...] Neutrophil pct 51.8 % [facility] ([facility]) Comment: Interpretive [...] Lymphocyte pct 17.4 % [facility] Comment: Interpretive Data Percent cell count reference ranges are not reported, since discordance with absolute values may lead to misinterpretation of CBC data. Current Interpretive Data was last revised on 2017. Monocyte pct 10.7 % [facility] Comment: Interpretive Data Percent cell count reference ranges are not reported, since discordance with absolute values may lead to misinterpretation of CBC data. Current Interpretive Data was last revised on 2017. Eosinophil pct 19.1 % [facility] ([facility] Comment: Interpretive Data Percent cell count reference ranges are not reported, since discordance with absolute values may lead to misinterpretation of CBC data. Current Interpretive Data was last revised on 2017. Basophil pct 0.3 % [facility] Comment: Interpretive Data Percent cell count reference ranges are not reported, since discordance with absolute values may lead to misinterpretation of CBC data. Current Interpretive Data was last revised on 2017. Blood 08/27/2024 6:43 AM CDT 08/27/2024 7:13 AM CDT us Nanette Juárez MD LAB BLOOD ORDERABLES Fi nal Result [facility] 1 [facility] [place] [address] * (ABNORMAL) CBC with auto differential (08/27/2024 [...] ([facility]) MCV 88.2 81.3 - 96.4 fL [facility] MCH 27.5 27.1 - 33.3 pg [facility] MCHC 31.1(L) 32.3 - 35.7 g/dL [facility]) RDW CV 15.3(H) 11.1 - 14.9 % [facility] RDW SD 49.6(H) 35.7 - 48.1 fL [facility] NRBC abs 0.00 0.00 - 0.01 K/cumm [facility] Blood 08/27/2024 6:4 3 AM CDT 08/27/2024 7:13 AM CDT Zuly Laguerre MD LAB BLOOD ORDERABLES Final Result Performing Organization Address City/[facility]/ZIP Co de Phone Number [facility] ([facility]) 1 [facility] [place] [address] * Magnesium (08/27/2024 6:43 AM CDT) Pathologist [facility] Magnesium 2.0 1.4 - 2.5 mg/dL Blood 08/27/2024 6:43 AM CDT 08/27/2024 7:13 AM CDT Nanette Juárez MD LAB BLOOD ORDERABLES Fi nal Result Performing Organization Address City/[facility]/ZIP Co de Phone Number [facility] ([facility]) 1 [facility] [place] [address] * (ABNORMAL) Comprehensive metabolic panel (08/27/2024 6:43 AM CDT) Sodium 137 135 - 145 mmol/L Potassium, pl 3.5 3.3 - 4.9 mmol/L [facility] ([facility]) Chloride 102 97 - 110 mmol/L [facility] ([facility]) CO2 21(L) 22 - 32 mmol/L [facility] ([facility]) Anion gap 15 2 - 15 mmol/L [facility] ([facility]) BUN 18 6 - 25 mg/dL [facility] Creatinine 1.02 0.60 - 1.10 mg/dL [facility] Glucose 72 70 - 199 mg/dL [facility] [...] - 8.5 g/dL [facility]) Albumin 3.6 3.5 - 5.0 g/dL [facility]) Alk phos 101 40 - 130 Units/L [facility] ALT 7 7 - 45 Units/L [facility] AST 12 10 - 45 Units/L [facility] Blood 08/27/2024 6:43 AM CDT 08/27/2024 7:13 AM CDT us Zuly Laguerre MD LAB BLOOD ORDERABLES Final Result [facility] ([facility]) 1 [facility] [place] [address] * C. difficile testing Stool (08/26/2024 11:23 PM CDT) [facility] Result Negative Negative Toxin Result Negative Negative [facility] ([facility]) C. diff result Negative, free toxin Negative, free toxin [facility]) C. diff interp Negative for toxigenic Clostridioides (Clostridium) difficile. Analysis was performed using a glutamate dehydrogenase antigen detection assay combined with a C. difficile toxin detection assay. [facility] ([facility]) Stool 08/26/2024 11:2 3 PM CDT 08/26/2024 11:30 PM CDT Nanette Juárez MD LAB MICROBIOLOGY - GENE RAL ORDERABLES Final Result Performing Organization Address City/[facility]/ZIP Co de Phone Number [facility] ([place]) 1 [facility] [place] [address] * Cryptosporidium and Giardia antigen assay Stool (08/26/2024 11:23 PM CDT) Giardia Ag Negative Negative Comment:Testing performed by : [facility], [address] [place] [address]., [address] Cryptosporidium Ag Negative Negative [facility] ([place]) Comment: Interpretive data: Testing performed by the [facility] using an immunoassay that detects Cryptosporidium and Giardia antigens in stool specimens. If comprehensive examination for ova and parasites is required, please request Ova and Parasite Examination . Testing performed by: [facility], [address] [place] [address], [place]., [id number] Stool 08/26/2024 11:2 3 PM CDT 08/27/2024 12:27 PM CDT us Ally Kaplan MD LAB MICROBIOLOGY - GENERAL OR DERABLES Final Result Performing Organization Address City/[facility]/ZIP Co de Phone Number [facility] ([facility]) 1 [facility] [place] [address] * Stool culture Stool Rectum (08/26/2024 11:23 PM CDT) Direct Specimen Exam Shiga Toxin Testing: Antigen detection assay for Shiga-toxin NEGATIVE for Shiga Toxin 1 and Shiga Toxin 2. Comment:Testing performed by : [facility], [address] [place] [address], [place]., [address] Report Final Report: No growth of enteric bacterial pathogens [facility] ([facility]) Comment:Testing performed by : [facility], 1 [facility], [place]., [address] Stool (Rectum) 08/26/2024 11 :23 PM CDT 08/27/2024 6:12 AM CDT Narrative [facility] ([facility]) - 09/01/2024 11:15 AM CDT received in culture and sensitivity transport media Testing performed by [facility] ([phone]). Routine stool cultures include procedures to detect Salmonella, Shigella, Edwardsiella, Aeromonas, Pleisiomonas, Campylobacter, Yersinia, E. coli O157, and Shiga-like toxins. Vibrio is cultured only upon special request. If Vibrio is suspected, please call the laboratory at [phone]. Interpretive data was last updated October 09, 2016. Nanette Juárez MD LAB MICROBIOLOGY - [facility] ORDERABLES Final Result [facility] ([facility]) 1 [facility] [place] [address] * (ABNORMAL) Urinalysis reflex to microscopic and culture Urine (08/26/2024 10:23 PM CDT) Color, ur Yellow Yellow Clarity, ur Clear Clear [facility] ([facility]) Specific gravity, ur 1.025 1.003 - 1.030 [facility] ([facility]) pH, urine 5.5 [facility] ([facility]) Comment: Interpretive Data U rine pH is affected by diet, medications, systemic acid-base disturbances, and renal tubular function. pH may affect urinary stone formation. For example, urine pH below 6.0 may help reduce the tendency for calcium phosphate stones and pH greater than 6.0 may reduce the tendency for uric acid stone formation. Source: [facility] Current Interpretive Data was last revised on 2017 Protein, ur ql 1+(A) Negative [facility] ([facility]) Glucose, ur ql Negative Negative [facility] ([facility]) Ketones, ur 2+(A) Negative [facility] ([facility]) Bilirubin, ur Negative Negative [facility]) Blood, ur Trace(A) Negative [facility] Urobilinogen, ur <2.0 <2.0 mg/dL [facility] ([facility]) Nitrite, ur Negative Negative [facility] A ([facility]) Leukocyte esterase, ur 2+(A) Negative [facility] ([facility]) UA reflex comment Reflex to microscopic UA will be performed. [facility] ([facility]) Urine 08/26/2024 10:2 3 PM CDT 08/26/2024 10:57 PM CDT Nanette Juárez MD LAB MICROBIOLOGY - GENE RAL ORDERABLES Final Result Performing Organization Address City/[facility]/ZIP Co de Phone Number [facility] 1 [facility] [place] [address] * (ABNORMAL) Urinalysis, microscopic only (08/26/2024 10:23 PM CDT) WBC, ur 21-50(A) 0 - 5 /HPF RBC, ur 6-10(A) 0 - 2 /HPF [facility] Epithelial cells, squamous, ur 1-5 0 - 5 /HPF [facility] Bacteria, ur Trace(A) [facility] ([facility] Mucous, ur Present(A) [facility] A ([facility]) Hyaline casts, ur 11-20(A) 0 - 10 /LPF [facility] Culture Reflex Comment Reflex to urine culture will be performed. [facility] ([facility]) Urine 08/26/2024 10:2 3 PM CDT 08/26/2024 10:57 PM CDT Nanette Juárez MD LAB URINE ORDERABLES Fi nal Result Performing Organization Address [facility] Co de Phone Number [facility] ([facility]) 1 [facility] [place] [address] * Urine culture Urine (08/26/2024 10:23 PM CDT) Report Final Report: Less than 100,000 colonies/mL (clinically insignificant growth based on current clinical standards) Comment:Testing performed by : [facility], 1 [place] [address] Organism (CLINICALLY INSIGNIFICANT GROWTH [facility] ([facility]) Urine 08/26/2024 10:2 3 PM CDT 08/27/2024 6:11 AM CDT Narrative [facility] ([facility]) - 08/28/2024 1:21 PM CDT Urine culture reflexed based upon urinalysis results. Testing performed by [facility] ([phone]) Nanette Juárez MD LAB MICROBIOLOGY - GENE RAL ORDERABLES Final Result [facility] 1 [facility] [place] [address] * Lipase (08/26/2024 10:23 PM CDT) Lipase 11 10 - 99 Units/L Blood 08/26/2024 10:2 3 PM CDT 08/26/2024 10:57 PM CDT Nanette Juárez MD LAB BLOOD ORDERABLES Fi nal Result Performing Organization Address City/[facility]/ZIP Co de Phone Number [facility] [address] [place] [address] [place] [address] * CT Abdomen Pelvis W Contrast (08/26/2024 [...] Judy Lance M.D. LL: JENNIFER Report ID: [id number] Reading Location: [id number] Procedure Note Judy Lance MD - 08/26/2024 [...] Electronically signed by Judy Lance M.D. LL: LL Report ID: [id number] Reading Location: [id number] Shaina Mathur MD IMG CT PROCEDURES Final R esult * Influenza A/B, RSV, and COVID-19 PCR Nasopharyngeal (08/26/2024 12:49 PM CDT) Pathologist [facility] [place] COVID-19 RNA Negative Negative Influenza A RNA Negative Negative [facility] Influenza B RNA Negative Negative [facility] ([place]) RSV RNA Negative Negative [facility] ([place]) Comment: Interpretive data: Testing performed by [facility]. This test is performed using the [employer] Xpert Xpress CoV-2/Flu/RSV plus assay. This is a multiplex, real- time reverse transcriptase PCR assay intended for the qualitative detection of nucleic acid from SARS-CoV-2, influenza A, influenza B, and respiratory syncytial virus. This assay has been cleared by the [place] Food and Drug administration. The performance characteristics have been verified by the [facility]. Results must be considered in the clinical context, and a negative result does not rule out infection. Interpretive Data last revised 2023 Nasopharyngeal 08/26/2024 12 :49 PM CDT 08/26/2024 12:54 PM CDT Narrative [facility] ([place]) - 08/26/2024 1:34 PM CDT Is the Patient experiencing symptoms consistent with COVID?->Yes Shaina Mathur MD LAB MICROBIOLOGY - GENERA L ORDERABLES Final Result [facility] ([place]) 1 [facility] Department [place] [address] * (ABNORMAL) eGFR (08/26/2024 12:49 PM CDT) [...] MD LAB BLOOD ORDERABLES Chloe l Result [facility] 1 [facility] [place] [address] * (ABNORMAL) CBC with auto differential (08/26/2024 [...] RDW CV 15.2(H) 11.1 - 14.9 % [facility] RDW SD 48.3(H) 35.7 - 48.1 fL [facility] NRBC abs 0.00 0.00 - 0.01 K/cumm [facility] Blood 08/26/2024 12:4 9 PM CDT 08/26/2024 12:54 PM CDT us Shaina Mathur MD LAB BLOOD ORDERABLES Chloe haynes Result [facility] ([place]) 1 [facility] [place] [address] * (ABNORMAL) Manual Differential (08/26/2024 12:49 PM CDT) Differential Manual Cells Counted 100 [facility] ([place] Neutrophil abs 12.8(H) 1.5 - 6.5 K/cumm [facility] ([place]) Imm gran abs 0.2(H) 0.0 - 0.1 K/cumm [facility] ([place]) Lymphocyte abs 2.5 0.8 - 3.3 K/cumm [facility] ([place]) Monocyte abs 1.0(H) 0.2 - 0.8 K/cumm [facility] ([place] Neutrophil pct 74.0 % [facility] [...] Neutrophil pct 4.0 0.0 - 5.0 % [facility] ([place]) Promyelocyte pct 1.0(H) 0.0 - 0.0 % [facility] ([place]) RBC morphology Consistent with RBC Indicies [facility] ([place]) Platelet estimate Adequate [facility] ([place]) Blood 08/26/2024 12:4 9 PM CDT 08/26/2024 12:54 PM CDT Shaina Mathur MD LAB BLOOD ORDERABLES Chloe l Result [facility] ([place]) 1 [facility] [place] [address] * (ABNORMAL) CRP (acute phase) (08/26/2024 12:49 PM CDT) [facility] CRP 22.1(H) <=10.0 mg/L Blood 08/26/2024 12:4 9 PM CDT 08/26/2024 6:10 PM CDT Vishnu Contreras MD LAB BLOOD ORDERABLES Final Result Performing Organization Address City/[facility]/ZIP Co de Phone Number [facility] ([place]) [address] [place] [phone] * (ABNORMAL) Comprehensive metabolic panel (08/26/2024 12:49 PM CDT) [facility] Sodium 136 135 - 145 mmol/L Potassium, pl 3.3 3.3 - 4.9 mmol/L [facility] ([place]) Chloride 95(L) 97 - 110 mmol/L [facility] ([place]) CO2 24 22 - 32 mmol/L [facility] ([place]) Anion gap 17(H) 2 - 15 mmol/L [facility] ([place]) BUN 18 6 - 25 mg/dL [facility] ([place]) Creatinine 1.41(H) 0.60 - 1.10 mg/dL [facility] ([place]) Glucose 91 70 - 199 mg/dL [facility] ([place]) Comment: Interpretive Data Fasting glucose >/= [...] MD LAB BLOOD ORDERABLES Chloe l Result [facility] ([place]) 1 [facility] [place] [address] * CT Lung Cancer Screening (08/16/2024 1:02 [...] Matt Alston M.D. AG: ANA Report ID: [id number] Reading Location: [place] [address] Procedure Note Matt Alston MD - 08/20/2024 [...] Matt Alston M.D. AG: AG Report ID: [id number] Reading Location: [place] [address] us Aria Flores NP IMG CT PROCEDURES Final Resul t * [...] Matt Alston M.D. AG: ANA Report ID: [id number] Reading Location: [id number] Procedure Note Matt Alston MD - 08/15/2024 [...] Matt Alston M.D. AG: ANA Report ID: [id number] Reading Location: [place] [address] us Aria Flores NP IMG US PROCEDURES Final Resul t * Hepatitis [...] 2 AM CDT 01/24/2024 7:56 PM CDT Aria Flores NP LAB MICROBIOLOGY - GENERAL OR DERABLES Final Result [facility] [address] Department [place] [address] * DEXA SCAN (02/09/2023) Historical Provider HEALTH MAINTENANCE Final Result * MAMMOGRAPHY (05/01/2022) Historical Provider HEALTH MAINTENANCE Final Result * Colonoscopy (04/15/2020) Anatomical Region Laterality Modality Other Historical Provider ENDOSCOPY PROCEDURES Chloe l Result from Last 3 Months or Most Recently Relevant to Health [place] [address] [place] [address] [employer] MEDICARE AETNA MEDICARE AETNA MEDICARE Advance Directives For more information, please contact: [phone] Documents on File Type Date Recorded 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 ADVANCE DIRECTIVE 06/11/2023 5:34 PM 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 * Full Code (Latest Code Status on File) Date Activated Date Inactivated Comments 08/29/2024 10:48 AM 09/01/2024 5:26 PM * Full Code Date Activated Date Inactivated Comments 08/26/2024 10:52 PM 08/29/2024 10:48 AM * Full Code Date Activated Date Inactivated Comments 05/19/2024 5:29 PM 05/20/2024 3:20 PM * Full Code Date Activated Date Inactivated Comments 06/22/2023 7:32 AM 06/28/2023 8:04 PM Care Teams Spinning Bath Person Relationship Specialty Start Date End Date Aria Flores NP PCP - General Family Medicine 01/24/24 Raphael Kirkland MD [address] [place] [address] [place] [phone] Consulting Physician Vascular Surgery 04/17/24 Emerita Amado MD [address] [place] [address] [place] [id number] Consulting Physician Interventional Cardiology 05/05/24 Zuly Laguerre MD [address] [place] [address] [place] [id number] Consulting Physician Gastroenterology 08/31/24
== END 2024-10-23 15:25 | disposition home or self-care (01) ==
LOC: ANHIMG 15:26
PROVIDERS: PCP Nurse Practitioner Family; Referring Provider Family Medicine; Visit Provider Nurse Practitioner Family
DX: Z12.31 Encounter for screening mammogram for malignant neoplasm of breast (principal)
CPT/HCPCS: 77063; 77067